=== PATIENT | female | born 1955 | race Caucasian/White ===

== ENCOUNTER 2017-01-19 20:10 | Emergency (ER) | payer OTHER ==
[~2017-01-19] VITALS: Ht 162.6 cm; Wt 139.9 kg
[~2017-01-19 20:10] MED LIST: ASPI-558 PO; CYCL-208 PO; DOCU-129 PO; IRBE1TAB7 PO; MULT1CAP47 PO; OMEG100016 PO; OXYC-48 PO; PIOG15TA PO; ROSU5TAB3 PO
--- OUTSIDE RECORDS SUMMARY | 2017-01-19 20:14 | XMS REPORT | Continuity of Care Document ---
Author Author [facility] Organization [facility] Address Unknown Phone Unavailable Allergies Medications Problems Procedures Results Encounters ACCT No. Visit Date/Time Discharge Status Pt. Type Provider Facility Loc./Unit Complaint [id number] 12/13/2013 10:00:00 12/13/2013 23 :59:59 CLS Outpatient [id number] 10/12/2013 14:23:00 10/12/2013 23 :59:59 CLS Outpatient
--- OUTSIDE RECORDS SUMMARY | 2017-01-19 20:14 | XMS REPORT | Referral Summary ---
Author Author [facility] Organization [facility] Address Unknown Phone Unavailable Care Team Providers Care Electronics Commodity Manager Name Role Phone Heidy Carrero Primary Care Physician [phone] Encounter VC Date(s): 03/28/15 - 03/28/15 [facility], [address] [place] [address] [[email or web address]] Discharge Diagnosis: Depression Discharge Disposition: 01-Home or Self Care Attending Physician: James Carrero MD Admitting Physician: James Carrero MD Vital Signs Most recent to 1 oldest [Reference Range]: Temperature Tympanic 36.9 degC [36.6-38.1 degC] (03/28/15 9:53 AM) Peripheral Pulse 64 bpm Rate [60-100 bpm] (03/28/15 9:53 AM) Respiratory Rate 16 br/min [14-20 br/min] (03/28/15 9:53 AM) Blood Pressure 116/70 mmHg [90-140/60-90 mmHg] (03/28/15 9:53 AM) Problem List Condition Effective Dates Status Health Status Informant Acute URI(Confirmed) Active Anxiety Resolved disorder(Confirmed) Benign essential Active hypertension(Confirm ed) Benign Active hypertension(Confirm ed) Bronchitis(Confirmed Active ) Chicken Resolved pox(Confirmed) Chronic low back Active pain(Confirmed) Chronic upper back Resolved pain(Confirmed) Depression(Confirmed Resolved ) Dry eye of left Active side(Confirmed) Eczema(Confirmed) Resolved Epidermal inclusion Active cyst(Confirmed) GERD Active (gastroesophageal reflux disease)(Confirmed) Tendinopathy of left Active gluteus medius(Confirmed) Gout(Confirmed) Resolved Hamstring tendinitis Active at origin(Confirmed) High Resolved cholesterol(Confirme d) Acute hip Active pain(Confirmed) Hypertension(Confirm Resolved ed) Hypothyroidism(Confi Resolved rmed) Irregular heart Resolved rhythm(Confirmed) Low back Active strain(Confirmed) Low back Active strain(Confirmed) Acute right lumbar Active radiculopathy(Confir med) Combined Active hyperlipidemia(Confi rmed) Morbid Active obesity(Confirmed) Acute neck Active pain(Confirmed) Occasional Resolved palpitations(Confirm ed) Osteoarthritis of Active right hip(Confirmed) Osteoarthritis of Active right knee(Confirmed) Osteoarthritis of Active wrist(Confirmed) Overweight(Confirmed Resolved ) Shingles(Confirmed) Resolved Right knee Active sprain(Confirmed) Steroid 1992 Resolved delirium(Confirmed) Hip Active strain(Confirmed) Strain of hip Active flexor(Confirmed) Acute strain of neck Active muscle(Confirmed) Synovitis of Active hip(Confirmed) Degenerative tear of Active lateral meniscus(Confirmed) Degenerative tear of Active medial meniscus(Confirmed) Hand Active tendinitis(Confirmed ) Tension Resolved headaches(Confirmed) Tobacco Active patient user(Confirmed) Controlled type 2 Active diabetes mellitus without complication(Confirm ed) Ulcers(Confirmed) Resolved Allergies, Adverse Reactions, Alerts Substance Reaction Severity Status amitriptyline memory loss Active ampicillin severe swelling /rash Severe Active cephalexin facial swelling Active clarithromycin decreased blood sugar Active erythromycin nausea/vomiting Active iodine rash, swelling Severe Active omeprazole rash Active predniSONE steroid induced delerium Active simvastatin muscle weakness Active traMADol nausea, dizziness Active Zoloft dizzy and disorientation Active Medications Actos 15 mg oral tablet 1 tabs, Oral, Daily, # 90 tabs, 3 Refill(s), Pharmacy: [facility], 1 tabs Oral Daily Start Date: 05/29/14 Status: Ordered ACTOS 15 MG ORAL TABLET See Instructions, 1 TABS ORAL DAILY, # 90 tabs, 1 Refill(s), eRx: [facility], 1 TABS ORAL DAILY Start Date: 04/08/15 Status: Ordered allopurinol 100 mg oral tablet 200 mg 2 tabs, Oral, Daily, # 270 tabs, 1 Refill(s), eRx: [facility], TAKE 3 TABLETS BY MOUTH EVERY DAY Start Date: 04/15/15 Status: Ordered Avalide 300 mg-12.5 mg oral tablet 0.5 tabs, Oral, Daily, # 45 tabs, 3 Refill(s), Pharmacy: [facility] Start Date: 07/22/15 Stop Date: 07/16/16 Status: Ordered Colace 100 mg oral capsule 2 caps, Oral, Daily, as needed for constipation, 0 Refill(s) Start Date: 03/09/14 Status: Ordered Crestor 5 mg oral tablet See Instructions, TAKE 1 TABLET EVERY OTHER DAY AT BEDTIME, # 45 tabs, eRx: [facility], TAKE 1 TABLET EVERY OTHER DAY AT BEDTIME Start Date: 06/24/15 Status: Ordered Dramamine 75 mg, Oral, Bedtime (once a day), 3 of the 25 mg tabs, 0 Refill(s) Start Date: 03/09/14 Status: Ordered furosemide 20 mg oral tablet See Instructions, TAKE 2 TABLETS EVERY MORNING, # 180 tabs, 1 Refill(s), eRx: [facility], TAKE 2 TABLETS EVERY MORNING Start Date: 07/08/15 Status: Ordered Glucometer strips (DME) DME Item Prescision Xtra Blood Glucose strips--Use to test blood 4 times a day for diabetes 250.00, See Instructions, # 300 Each, 3 Refill(s), Pharmacy: [facility], Prescision Xtra Blood Glucose strips--Use to test blood 4 times a d... Start Date: 05/03/14 Status: Ordered GLUCOMETER STRIPS (DME) See Instructions, PRESCISION XTRA BLOOD GLUCOSE STRIPS--USE TO TEST BLOOD 4 TIMES A DAY FOR DIABETES 250.00, # 300 strip, 2 Refill(s), eRx: [facility], PRESCISION XTRA BLOOD GLUCOSE STRIPS--USE TO TEST BLOOD 4 TIMES A DAY FOR DIABET... Start Date: 06/03/15 Status: Ordered ibuprofen 4 tabs, Oral, TID, as needed for back pain, 0 Refill(s) Start Date: 03/09/14 Status: Ordered Klor-Con 10 10 mEq, Oral, Daily, as needed for leg cramps, 0 Refill(s) Start Date: 03/09/14 Status: Ordered lansoprazole 30 mg oral delayed release capsule 60 mg 2 caps, Oral, Daily, # 180 caps, 2 Refill(s), [facility]acy: [facility], 2 caps Oral Daily Start Date: 07/26/15 Status: Ordered metFORMIN 500 mg oral tablet See Instructions, TAKE 2 TABLETS TWICE A DAY, # 360 tabs, 2 Refill(s), eRx: [facility], TAKE 2 TABLETS TWICE A DAY Start Date: 01/02/15 Status: Ordered Metoprolol Tartrate 25 mg oral tablet See Instructions, TAKE 1 TAB IN THE AM AND 1 TAB IN THE PM, # 180 tabs, 1 Refill (s), eRx: [facility], TAKE 1 TAB IN THE AM AND 1 TAB IN THE PM Start Date: 03/14/15 Status: Ordered multivitamin 1 tabs, Oral, Daily, 0 Refill(s) Start Date: 03/09/14 Status: Ordered [place] 5 mg-325 mg oral tablet 2 tabs, Oral, Bedtime (once a day), as needed for pain, Anuradhat, # 180 tabs, 0 Refill(s) Start Date: 07/22/15 Stop Date: 10/20/15 Status: Ordered Results No data available for this section Immunizations Vaccine Date Refusal Reason tetanus/diphth/pertuss (Tdap) adult/adol 06/01/11 influenza virus vaccine, inactivated1 07/04/14 influenza virus vaccine, live 08/25/13 influenza virus vaccine, live 09/08/12 pneumococcal 23-polyvalent vaccine 07/19/97 tetanus-diphth toxoids (Td) adult/adol 04/13/95 1Result Comment: [07/04/2014] See scanned document Procedures Procedure Date Related Diagnosis Body Site Stapled Hemorrhoidectomy 08/14/10 Colonoscopy 2010 Cystoscopy/Lazer Vaporization 1989 Hysterectomy 1988 Appendectomy 1983 Exploratory laparotomy, RT salpingoectomy, RT 1984 ovarian biopsy Sinus surgery 1982 Tubal ligation Social History Social History Type Response Smoking Status Former smoker; Type: Cigarettes; Tobacco use per day: Pack ; Number of years: 211, 2 1Quit in 1996. 2Quit in 1976 Assessment and Plan Extracted from: Title: Ambulatory Patient Education Author: James Carrero MD Date: 03/28 Family Medicine Depression, Adult Depression refers to feeling sad, low, down in the dumps, blue, gloomy, or empty. In general, there are two kinds of depression: 1. Depression that we all experience from time to time because of upsetting life experiences, including the loss of a job or the ending of a relationship ( normal sadness or normal grief). This kind of depression is considered normal, is short lived, and resolves within a few days to 2 weeks. (Depression experienced after the loss of a loved one is called bereavement. Bereavement often lasts longer than 2 weeks but normally gets better with time.) 2. Clinical depression, which lasts longer than normal sadness or normal grief or interferes with your ability to function at home, at work, and in school. It also interferes with your personal relationships. It affects almost every aspect of your life. Clinical depression is an illness. Symptoms of depression also can be caused by conditions other than normal sadness and grief or clinical depression. Examples of these conditions are listed as follows: Physical illnessSome physical illnesses, including underactive thyroid gland (hypothyroidism ), severe anemia, specific types of cancer, diabetes, uncontrolled seizures, heart and lung problems, strokes, and chronic pain are commonly associated with symptoms of depression. Side effects of some prescription medicineIn some people, certain types of prescription medicine can cause symptoms of depression. Substance abuseAbuse of alcohol and illicit drugs can cause symptoms of depression. SYMPTOMS Symptoms of normal sadness and normal grief include the following: Feeling sad or crying for short periods of time. Not caring about anything (apathy ). Difficulty sleeping or sleeping too much. No longer able to enjoy the things you used to enjoy. Desire to be by oneself all the time (social isolation ). Lack of energy or motivation. Difficulty concentrating or remembering. Change in appetite or weight. Restlessness or agitation. Symptoms of clinical depression include the same symptoms of normal sadness or normal grief and also the following symptoms: Feeling sad or crying all the time. Feelings of guilt or worthlessness. Feelings of hopelessness or helplessness. Thoughts of suicide or the desire to harm yourself (suicidal ideation ). Loss of touch with reality (psychotic symptoms ). Seeing or hearing things that are not real (hallucinations ) or having false beliefs about your life or the people around you (delusions and paranoia ). DIAGNOSIS The diagnosis of clinical depression usually is based on the severity and duration of the symptoms. Your caregiver also will ask you questions about your medical history and substance use to find out if physical illness, use of prescription medicine, or substance abuse is causing your depression. Your caregiver also may order blood tests. TREATMENT Typically, normal sadness and normal grief do not require treatment. However, sometimes antidepressant medicine is prescribed for bereavement to ease the depressive symptoms until they resolve. The treatment for clinical depression depends on the severity of your symptoms but typically includes antidepressant medicine, counseling with a mental health professional, or a combination of both. Your caregiver will help to determine what treatment is best for you. Depression caused by physical illness usually goes away with appropriate medical treatment of the illness. If prescription medicine is causing depression , talk with your caregiver about stopping the medicine, decreasing the dose, or substituting another medicine. Depression caused by abuse of alcohol or illicit drugs abuse goes away with abstinence from these substances. Some adults need professional help in order to stop drinking or using drugs. SEEK IMMEDIATE CARE IF: You have thoughts about hurting yourself or others. You lose touch with reality (have psychotic symptoms). You are taking medicine for depression and have a serious side effect. FOR MORE INFORMATION National [place] on Mental Illness: www.linette.org [place] of Mental Health: www.nimh.nih.gov Document Released: 09/17/2001 Document Revised: 03/21/2013 Document Reviewed: ExitCare Patient Information 2014 [employer]. No follow up information was provided. Extracted from: Title: multiple issues Author: James Carrero MD Date: 03/28/15 Impression and Plan Diagnosis Benign essential hypertension (ICD9 401.1, Working, Medical). Combined hyperlipidemia (ICD9 272.2, Working, Medical). Controlled type 2 diabetes mellitus without complication (ICD9 250.00, Working, Medical). Morbid obesity (ICD9 278.01, Working, Medical). 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 Plan: Healthy diet and daily exercise with weight loss recommended. You didn' t want additional meds for depression or diabetes. See me in 3 months and as needed. Saline sinus irrigation is helpful for chronic sinusitis. Get fasting lab in 3 months, then see me for a recheck appointment. , Wear the left wrist brace for up to one month, for the left wrist pain. Get ROM to the wrist every day.. Orders Orders (Selected) Outpatient Orders Ordered Office Visit Level 5 Est 49155: Wrist hand orthosis, wrist extension control cock-up, non molded, L3908: Future (On Hold) Albumin/Creatinine Ratio, Urine: CMP: Hgb A1c: Triglycerides: . Dx/Order Association Plan: Diagnosis: Benign essential hypertension Comment: Ordered: Office Visit Level 5 Est [id number]; 03/28/15 10:33:00 CDT, Benign essential hypertension | Osteoarthritis of wrist | Controlled type 2 diabetes mellitus without complication | Combined hyperlipidemia | Morbid obesity Diagnosis: Combined hyperlipidemia Comment: Ordered: Office Visit Level 5 Est [id number]; 03/28/15 10:33:00 CDT, Benign essential hypertension | Osteoarthritis of wrist | Controlled type 2 diabetes mellitus without complication | Combined hyperlipidemia | Morbid obesity Diagnosis: Controlled type 2 diabetes mellitus without complication Comment: Ordered: Office Visit Level 5 Est [id number]; 03/28/15 10:33:00 CDT, Benign essential hypertension | Osteoarthritis of wrist | Controlled type 2 diabetes mellitus without complication | Combined hyperlipidemia | Morbid obesity Diagnosis: Depression Comment: Ordered: Office Visit Level 5 Est [id number]; 03/28/15 10:33:00 CDT, Benign essential hypertension | Osteoarthritis of wrist | Controlled type 2 diabetes mellitus without complication | Combined hyperlipidemia | Morbid obesity Diagnosis: Morbid obesity Comment: Ordered: Office Visit Level 5 Est [id number]; 03/28/15 10:33:00 CDT, Benign essential hypertension | Osteoarthritis of wrist | Controlled type 2 diabetes mellitus without complication | Combined hyperlipidemia | Morbid obesity Diagnosis: Osteoarthritis of wrist Comment: Ordered: Wrist hand orthosis, wrist extension control cock-up, non molded, [id number]; 03/28/15 13:43:00 CDT, Osteoarthritis of wrist, 1 Office Visit Level 5 Est [id number]; 03/28/15 10:33:00 CDT, Benign essential hypertension | Osteoarthritis of wrist | Controlled type 2 diabetes mellitus without complication | Combined hyperlipidemia | Morbid obesity Additional Orders: Comment: Future Orders: Albumin/Creatinine Ratio, Urine,Urine, Routine collect, *Est. 06/27/15 +/- 21 days, Once, Nurse Collect Non-Blood, Controlled type 2 diabetes mellitus without complication, Order for future visit Future Orders: CMP,Blood, Routine Collect, *Est. 06/27/15 +/- 21 days, Once, Lab Collect, Controlled type 2 diabetes mellitus without complication, Order for future visit End of Orders ."
--- OUTSIDE RECORDS SUMMARY | 2017-01-19 20:15 | XMS REPORT | Referral Summary ---
Author Author [facility] Organization [facility] Address Unknown Phone Unavailable Care Team Providers Care Mushroom Packer Name Role Phone Heidy Carrero Primary Care Physician [phone] Encounter VC Date(s): 08/15/15 - 08/15/15 [facility] [address] [place] [address] [place] [phone]- Discharge Diagnosis: Well woman exam with routine gynecological exam Discharge Disposition: 01-Home or Self Care Attending Physician: Virginie Gilbert APRN Admitting Physician: Virginie Gilbert APRN Vital Signs Most recent to 1 oldest [Reference Range]: Peripheral Pulse 84 bpm Rate [60-100 bpm] (08/15/15 8:50 AM) Blood Pressure 134/76 mmHg [90-140/60-90 mmHg] (08/15/15 8:50 AM) Problem List Condition Effective Dates Status [...] Daily, # 90 tabs, 3 Refill(s), Pharmacy: [facility], 1 tabs Oral Daily Start Date: 05/29/14 Status: Ordered ACTOS 15 MG ORAL TABLET See Instructions, 1 TABS ORAL DAILY, # 90 tabs, 1 Refill(s), eRx: [facility], 1 TABS ORAL DAILY Start Date: 04/08/15 Status: Ordered allopurinol 100 mg oral tablet 200 mg 2 tabs, Oral, Daily, # 270 tabs, 1 Refill(s), [facility]: [facility], TAKE 3 TABLETS BY MOUTH EVERY DAY Start Date: 04/15/15 Status: Ordered Avalide 300 mg-12.5 mg oral tablet 0.5 tabs, Oral, Daily, # 45 tabs, 3 Refill(s), Pharmacy: [facility] Start Date: 07/22/15 Stop Date: 07/16/16 Status: Ordered Colace 100 mg oral capsule 2 caps, Oral, Daily, as needed for constipation, 0 Refill(s) Start Date: 03/09/14 Status: Ordered Crestor 5 mg oral tablet See Instructions, TAKE 1 TABLET EVERY OTHER DAY AT BEDTIME, # 45 tabs, eRx: [facility], TAKE 1 TABLET EVERY OTHER [...] # 300 Each, 3 Refill(s), Pharmacy: [facility], Prescision Xtra Blood Glucose strips--Use [...] # 180 caps, 2 Refill(s), [facility]acy: [facility], 2 caps Oral Daily Start [...] 0 Refill(s) Start Date: 03/09/14 Status: Ordered [place] 5 mg-325 mg oral tablet 2 tabs, Oral, Bedtime (once a day), as needed for pain, [facility], # 180 tabs, 0 Refill(s) Start Date: [...] Procedures Procedure Date Related Diagnosis Body Site Pap smear, as part of routine gynecological 08/08/14 examination Stapled Hemorrhoidectomy 08/14/10 Colonoscopy 2009 Cystoscopy/Lazer Vaporization 1989 Hysterectomy 1988 Appendectomy 1983 Exploratory laparotomy, RT salpingoectomy, RT 1983 ovarian biopsy Sinus surgery 1982 Tubal ligation Social History Social History Type Response Smoking Status Former smoker; Type: Cigarettes; Tobacco use per day: Pack ; Number of years: 211, 2 1Quit in 1996. 2Quit in 1976 Assessment and Plan No data available for this section
--- OUTSIDE RECORDS SUMMARY | 2017-01-19 20:15 | XMS REPORT | Referral Summary ---
Author Author [facility] Organization [facility] Address Unknown Phone Unavailable Care Team Providers Care Cracker Dough Mixer Name Role Phone Heidy Carrero Primary Care Physician [phone] Encounter VC Date(s): 05/07/15 - 05/07/15 [facility] [address] [place] [phone]- Discharge Disposition: 01-Home or Self Care Attending Physician: James Carrero MD Vital Signs No data available for this section Problem List Condition Effective Dates Status Health [...] Active Zoloft dizzy and disorientation Active Medications ACTOS 15 MG ORAL TABLET See Instructions, 1 TABS ORAL DAILY, # 90 tabs, 1 Refill(s), [facility]: [facility], 1 TABS ORAL DAILY Start Date: 04/08/15 Status: Ordered allopurinol 100 mg oral tablet 200 mg 2 tabs, Oral, Daily, # 270 tabs, 1 Refill(s), eRx: [facility], TAKE 3 TABLETS BY MOUTH EVERY DAY Start Date: 04/15/15 Status: Ordered Avalide 300 mg-12.5 mg oral tablet 0.5 tabs, Oral, Daily, # 45 tabs, 3 Refill(s), Pharmacy: [facility] Start Date: 07/22/15 Stop Date: 07/16/16 Status: Ordered Colace 100 mg oral capsule 2 caps, Oral, Daily, as needed for constipation, 0 Refill(s) Start Date: 03/09/14 Status: Ordered Crestor 5 mg oral tablet See Instructions, TAKE 1 TABLET EVERY OTHER DAY AT BEDTIME, # 45 tabs, eRx: [facility], TAKE 1 TABLET EVERY OTHER DAY AT BEDTIME Start Date: 11/15/15 Status: Ordered Dramamine 75 mg, Oral, Bedtime (once a day), 3 of the 25 mg tabs, 0 Refill(s) Start Date: 03/09/14 Status: Ordered furosemide 20 mg oral tablet See Instructions, TAKE 2 TABLETS EVERY MORNING, # 180 tabs, 1 Refill(s), eRx: [facility], TAKE 2 TABLETS EVERY MORNING Start Date: 07/08/15 Status: Ordered Glucometer (DME) DME Item Freestyle Light Monitor to test blood sugar daily for diabetes type 2 E11.8, See Instructions, # 1 Each, 0 Refill(s), Precision Xtra Blood Glucose Monitor to test blood sugar daily for diabetes type 2 E11.9, Supply Start Date: 10/03/15 Status: Ordered Glucometer Lancets (DME) DME Item Freestlye Light Lancets Test blood sugars 4x daily DX: E11.8, See Instructions, # 1 boxes, 2 Refill(s), Supply Start Date: 10/03/15 Status: Ordered Glucometer strips (DME) DME Item Prescision Xtra Blood Glucose strips--Use to test blood 4 times a day for diabetes 250.00, See Instructions, # 300 Each, 3 Refill(s), Pharmacy: [facility], Prescision Xtra Blood Glucose strips--Use to test blood 4 times a d... Start Date: 05/03/14 Status: Ordered Glucometer strips (DME) DME Item Free style GLUCOSE STRIPS--USE TO TEST BLOOD 4 TIMES A DAY FOR DIABETES E11.8, See Instructions, # 6 boxes, 3 Refill(s), PRESCISION XTRA BLOOD GLUCOSE STRIPS--USE TO TEST BLOOD 4 TIMES A DAY FOR DIABETES 250.00, 100 strips per month/ 3 month... Start Date: 10/14/15 Status: Ordered ibuprofen 4 tabs, Oral, TID, as needed for back pain, 0 Refill(s) Start Date: 03/09/14 Status: Ordered Januvia 100 mg oral tablet 100 mg 1 tabs, Oral, Daily, # 90 tabs, 4 Refill(s) Start Date: 10/16/15 Stop Date: 01/14/16 Status: Ordered Klor-Con 10 10 mEq, Oral, Daily, as needed for leg cramps, 0 Refill(s) Start Date: 03/09/14 Status: Ordered lansoprazole 30 mg oral delayed release capsule 60 mg 2 caps, Oral, Daily, # 180 caps, 2 Refill(s), Pharmacy: [facility], 2 caps Oral Daily Start Date: 07/26/15 Status: Ordered metFORMIN 500 mg oral tablet See Instructions, TAKE 2 TABLETS TWICE A DAY, # 360 tabs, 2 Refill(s), Pharmacy : [facility], TAKE 2 TABLETS TWICE A DAY Start Date: 10/28/15 Status: Ordered Metoprolol Tartrate 25 mg oral tablet See Instructions, TAKE 1 TAB IN THE AM AND 1 TAB IN THE PM, # 180 tabs, 1 Refill (s), Pharmacy: [facility], TAKE 1 TAB IN THE AM AND 1 TAB IN THE PM Start Date: 10/28/15 Status: Ordered multivitamin 1 tabs, Oral, Daily, 0 Refill(s) Start Date: 03/09/14 Status: Ordered [place] 5 mg-325 mg oral tablet 2 tabs, Oral, Bedtime (once a day), as needed for pain, [facility], # 180 tabs, 0 Refill(s) Start Date: 10/28/15 Stop Date: 01/26/16 Status: Ordered pioglitazone 15 mg oral tablet See Instructions, TAKE 1 TABLET DAILY, # 90 tabs, eRx: [facility], TAKE 1 TABLET DAILY Start Date: 09/09/15 Status: Ordered Results No data available for [...]
--- OUTSIDE RECORDS SUMMARY | 2017-01-19 20:15 | XMS REPORT | Referral Summary ---
Author Author [facility] [place], [facility] Care Organization [facility] [place] [facility] Address Unknown Phone Unavailable Care Team Providers Care Water Treatment Technician Name Role Phone Heidy Carrero Primary Care Physician [phone] Encounter VC Date(s): 12/07/15 - 12/07/15 [facility] [place], [address] [place] [id number] Discharge Disposition: 01-Home or Self Care Attending Physician: James Carrero MD Admitting Physician: James Carrero MD Vital Signs Most recent to 1 oldest [Reference Range]: Peripheral Pulse 66 bpm Rate [60-100 bpm] (12/07/15 10:05 AM) Respiratory Rate 17 br/min [14-20 br/min] (12/07/15 10:05 AM) Blood Pressure 128/70 mmHg [90-140/60-90 mmHg] (12/07/15 10:05 AM) SpO2 96 % (12/07/15 10:05 AM) Problem List Condition Effective Dates Status [...] DAILY, # 90 tabs, 1 Refill(s), eRx: [facility], 1 TABS ORAL DAILY Start Date: 04/08/15 Status: Ordered allopurinol 100 mg oral tablet 200 mg 2 tabs, Oral, Daily, # 270 tabs, 1 Refill(s), eRx: [facility], TAKE 3 TABLETS BY MOUTH EVERY DAY Start Date: 04/15/15 Status: Ordered Avalide 300 mg-12.5 mg oral tablet 0.5 tabs, Oral, Daily, # 45 tabs, 3 Refill(s), Pharmacy: [facility] Start Date: 07/22/15 Stop Date: 07/16/16 Status: Ordered Colace 100 mg oral capsule 2 caps, Oral, Daily, as needed for constipation, 0 Refill(s) Start Date: 03/09/14 Status: Ordered Crestor 5 mg oral tablet See Instructions, TAKE 1 TABLET EVERY OTHER DAY AT BEDTIME, # 45 tabs, eRx: [facility], TAKE 1 TABLET EVERY OTHER DAY AT BEDTIME Start Date: 11/15/15 Status: Ordered Dramamine 75 mg, Oral, Bedtime (once a day), 3 of the 25 mg tabs, 0 Refill(s) Start Date: 03/09/14 Status: Ordered furosemide 20 mg oral tablet See Instructions, TAKE 2 TABLETS EVERY MORNING, # 180 tabs, 1 Refill(s), [facility]: [email or web address], TAKE 2 TABLETS EVERY MORNING [...] Instructions, # 300 Each, 3 Refill(s), Pharmacy: [facility], Prescision Xtra Blood Glucose strips--Use [...] Daily, # 180 caps, 2 Refill(s), Pharmacy: [facility], 2 caps Oral Daily Start Date: 07/26/15 Status: Ordered metFORMIN 500 mg oral tablet See Instructions, TAKE 2 TABLETS TWICE A DAY, # 360 tabs, 2 Refill(s), Pharmacy : [facility], TAKE 2 TABLETS TWICE A DAY Start Date: 10/28/15 Status: Ordered Metoprolol Tartrate 25 mg oral tablet See Instructions, TAKE 1 TAB IN THE AM AND 1 TAB IN THE PM, # 180 tabs, 1 Refill (s), Pharmacy: [facility], TAKE 1 TAB IN THE AM AND 1 TAB IN THE PM Start Date: 10/28/15 Status: Ordered multivitamin 1 tabs, Oral, Daily, 0 Refill(s) Start Date: 03/09/14 Status: Ordered Oakley 5 mg-325 mg oral tablet 2 tabs, Oral, Bedtime (once a day), as needed for pain, Joshua, # 180 tabs, 0 Refill(s) Start Date: 10/28/15 Stop Date: 01/26/16 Status: Ordered pioglitazone 15 mg oral tablet See Instructions, TAKE 1 TABLET DAILY, # 90 tabs, 1 Refill(s), [facility]: [email or web address], TAKE 1 TABLET DAILY Start Date: 11/18/15 Status: Ordered sulfamethoxazole-trimethoprim 800 mg-160 mg oral tablet 1 tabs, Oral, BID, X 10 days, # 20 tabs, 0 Refill(s), Pharmacy: [id number] Start Date: 12/07/15 Stop Date: 12/17/15 Status: Ordered Results No data available for [...] 2009 Cystoscopy/Lazer Vaporization 1989 Hysterectomy 1988 Appendectomy 1984 Exploratory laparotomy, RT salpingoectomy, RT 1983 ovarian biopsy Sinus surgery 1982 Tubal ligation Social History Social History Type Response Smoking Status Former smoker; Type: Cigarettes; Tobacco use per day: Pack ; Number of years: 211, 2 1Quit in 1996. 2Quit in 1976 Assessment and Plan Extracted from: Title: Ambulatory Patient Education Author: James Carrero MD Date: Allergy Sinusitis Sinusitis is redness, soreness, and puffiness (inflammation) of the air pockets in the bones of your face (sinuses). The redness, soreness, and puffiness can cause air and mucus to get trapped in your sinuses. This can allow germs to grow and cause an infection. HOME CARE Drink enough fluids to keep your pee (urine) clear or pale yellow. Use a humidifier in your home. Run a hot shower to create steam in the bathroom. Sit in the bathroom with the door closed. Breathe in the steam 34 times a day. Put a warm, moist washcloth on your face 34 times a day, or as told by your doctor. Use salt water sprays (saline sprays) to wet the thick fluid in your nose. This can help the sinuses drain. Only take medicine as told by your doctor. GET HELP RIGHT AWAY IF: Your pain gets worse. You have very bad headaches. You are sick to your stomach (nauseous). You throw up (vomit). You are very sleepy (drowsy) all the time. Your face is puffy (swollen). Your vision changes. You have a stiff neck. You have trouble breathing. MAKE SURE YOU: Understand these instructions. Will watch your condition. Will get help right away if you are not doing well or get worse. This information is not intended to replace advice given to you by your health care provider. Make sure you discuss any questions you have with your health care provider. Document Released: 03/08/2009 Document Revised: 06/14/2013 Document Reviewed: [facility] [place] Patient Information 2015 [facility]. Emergency Medicine Acute Bronchitis Bronchitis is inflammation of the airways that extend from the windpipe into the lungs (bronchi). The inflammation often causes mucus to develop. This leads to a cough, which is the most common symptom of bronchitis. In acute bronchitis, the condition usually develops suddenly and goes away over time, usually in a couple weeks. Smoking, allergies, and asthma can make bronchitis worse. Repeated episodes of bronchitis may cause further lung problems. CAUSES Acute bronchitis is most often caused by the same virus that causes a cold. The virus can spread from person to person (contagious) through coughing, sneezing, and touching contaminated objects. SIGNS AND SYMPTOMS Cough. Fever. Coughing up mucus. Body aches. Chest congestion. Chills. Shortness of breath. Sore throat. DIAGNOSIS Acute bronchitis is usually diagnosed through a physical exam. Your health care provider will also ask you questions about your medical history. Tests, such as chest X-rays, are sometimes done to rule out other conditions. TREATMENT Acute bronchitis usually goes away in a couple weeks. Oftentimes, no medical treatment is necessary. Medicines are sometimes given for relief of fever or cough. Antibiotic medicines are usually not needed but may be prescribed in certain situations. In some cases, an inhaler may be recommended to help reduce shortness of breath and control the cough. A cool mist vaporizer may also be used to help thin bronchial secretions and make it easier to clear the chest. HOME CARE INSTRUCTIONS Get plenty of rest. Drink enough fluids to keep your urine clear or pale yellow (unless you have a medical condition that requires fluid restriction). Increasing fluids may help thin your respiratory secretions (sputum) and reduce chest congestion, and it will prevent dehydration. Take medicines only as directed by your health care provider. If you were prescribed an antibiotic medicine, finish it all even if you start to feel better. Avoid smoking and secondhand smoke. Exposure to cigarette smoke or irritating chemicals will make bronchitis worse. If you are a smoker, consider using nicotine gum or skin patches to help control withdrawal symptoms. Quitting smoking will help your lungs heal faster. Reduce the chances of another bout of acute bronchitis by washing your hands frequently, avoiding people with cold symptoms, and trying not to touch your hands to your mouth, nose, or eyes. Keep all follow-up visits as directed by your health care provider. SEEK MEDICAL CARE IF: Your symptoms do not improve after 1 week of treatment. SEEK IMMEDIATE MEDICAL CARE IF: You develop an increased fever or chills. You have chest pain. You have severe shortness of breath. You have bloody sputum. You develop dehydration. You faint or repeatedly feel like you are going to pass out. You develop repeated vomiting. You develop a severe headache. MAKE SURE YOU: Understand these instructions. Will watch your condition. Will get help right away if you are not doing well or get worse. This information is not intended to replace advice given to you by your health care provider. Make sure you discuss any questions you have with your health care provider. Document Released: 10/28/2005 Document Revised: 02/04/2015 Document Reviewed: [facility] Patient Information 2015 [employer]. Home Health Care Cellulitis Cellulitis is an infection of the skin and the tissue beneath it. The infected area is usually red and tender. Cellulitis occurs most often in the arms and lower legs. CAUSES Cellulitis is caused by bacteria that enter the skin through cracks or cuts in the skin. The most common types of bacteria that cause cellulitis are staphylococci and streptococci. SIGNS AND SYMPTOMS Redness and warmth. Swelling. Tenderness or pain. Fever. DIAGNOSIS Your health care provider can usually determine what is wrong based on a physical exam. Blood tests may also be done. TREATMENT Treatment usually involves taking an antibiotic medicine. HOME CARE INSTRUCTIONS Take your antibiotic medicine as directed by your health care provider. Finish the antibiotic even if you start to feel better. Keep the infected arm or leg elevated to reduce swelling. Apply a warm cloth to the affected area up to 4 times per day to relieve pain. Take medicines only as directed by your health care provider. Keep all follow-up visits as directed by your health care provider. SEEK MEDICAL CARE IF: You notice red streaks coming from the infected area. Your red area gets larger or turns dark in color. Your bone or joint underneath the infected area becomes painful after the skin has healed. Your infection returns in the same area or another area. You notice a swollen bump in the infected area. You develop new symptoms. You have a fever. SEEK IMMEDIATE MEDICAL CARE IF: You feel very sleepy. You develop vomiting or diarrhea. You have a general ill feeling (malaise) with muscle aches and pains. MAKE SURE YOU: Understand these instructions. Will watch your condition. Will get help right away if you are not doing well or get worse. This information is not intended to replace advice given to you by your health care provider. Make sure you discuss any questions you have with your health care provider. Document Released: 06/30/2006 Document Revised: 02/04/2015 Document Reviewed: [employer] Patient Information 2015 [facility]. No follow up information was provided. Extracted from: Title: cellulitis, right 2nd toe; Author: James Carrero MD Date: 12/07/15 frontal sinusitis; diabetes, bronchitis Impression and Plan Diagnosis Cellulitis of second toe (FSM55-QD L03.031, Working, Medical). Acute pansinusitis (SLM57-ZG J01.40, Working, Medical). Controlled type 2 diabetes mellitus without complication (YHT65-VP E11.9, Working, Medical). Acute bronchitis (NOZ14-RK J20.9, Working, Medical). Plan: 1) take the Bactrim DS as prescribed. 2) Soak the right toe several times a day and dry it off gently. 3) No change to your other meds. 4) Followup as needed.. Orders Orders (Selected) Outpatient Orders Ordered Office Visit Level 4 Est 42330: Future (On Hold) Albumin/Creatinine Ratio, Urine: CMP: Fasting Lipid Profile: Hgb A1c: Prescriptions Prescribed sulfamethoxazole-trimethoprim 800 mg-160 mg oral tablet: 1 tabs, Oral, BID, for 10 days, 20 tabs, 0 Refill(s). 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, Cellulitis of second toe | Acute pansinusitis | Controlled type 2 diabetes mellitus without complication | Acute bronchitis Diagnosis: Cellulitis of second toe Comment: Modified: Office Visit Level 4 Est [id number]; 12/07/15 16:06:00 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, Cellulitis of second toe | Acute pansinusitis | Controlled type 2 diabetes mellitus without complication | Acute bronchitis Diagnosis: Controlled type 2 diabetes mellitus without complication Comment: Modified: Office Visit Level 4 Est 16050; 12/07/15 16:06:00 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
--- OUTSIDE RECORDS SUMMARY | 2017-01-19 20:15 | XMS REPORT | Referral Summary ---
Author Organization Unknown Address Unknown Phone Unavailable Care Team Providers Care Transportation Dispatch Manager Name Role Phone Heidy Carrero Primary Care Physician [phone] Encounter VC Date(s): 12/13/14 - 12/13/14 [facility], [place], Family Medicine [address] [place] [address] [place] [id number] Discharge Diagnosis: Controlled type 2 diabetes mellitus without complication Discharge Diagnosis: GERD (gastroesophageal reflux disease) Discharge Diagnosis: Dry eye of left side Discharge Diagnosis: Benign essential hypertension Discharge Diagnosis: Combined hyperlipidemia Discharge Disposition: Home or Self Care Attending Physician: James Carrero MD Admitting Physician: James Carrero MD Vital Signs Most recent to 1 oldest [Reference Range]: Temperature Tympanic 36.8 degC [36.6-38.1 degC] (12/13/14 9:51 AM) Peripheral Pulse 64 bpm Rate [60-100 bpm] (12/13/14 9:51 AM) Respiratory Rate 12 br/min [14-20 br/min] *LOW* (12/13/14 9:51 AM) Blood Pressure 128/84 mmHg [90-140/60-90 mmHg] (12/13/14 9:51 AM) Problem List Condition Effective Dates Status Health Status Informant Anxiety Resolved disorder(Confirmed) Benign essential Active hypertension(Confirm [...] Active radiculopathy(Confir med) Combined Active hyperlipidemia(Confi rmed) Acute neck Active pain(Confirmed) Occasional Resolved palpitations(Confirm ed) Overweight(Confirmed Resolved ) Shingles(Confirmed) Resolved Right knee Active sprain(Confirmed) Steroid 1992 Resolved delirium(Confirmed) Hip Active strain(Confirmed) Strain of hip Active flexor(Confirmed) Acute strain of neck Active muscle(Confirmed) Synovitis of Active hip(Confirmed) Degenerative tear of Active lateral meniscus(Confirmed) Degenerative tear of Active medial meniscus(Confirmed) Tension Resolved headaches(Confirmed) Tobacco Active patient user(Confirmed) [...] Daily, # 90 tabs, 3 Refill(s), Pharmacy: [facility], 1 tabs Oral Daily Start Date: 05/29/14 Status: Ordered allopurinol 100 mg oral tablet See Instructions, TAKE 3 TABLETS BY MOUTH EVERY DAY, # 270 tabs, 1 Refill(s), eRx: [facility], TAKE 3 TABLETS BY MOUTH EVERY DAY Special Instructions: TAKE 3 TABLETS BY MOUTH EVERY DAY Start Date: 10/01/14 Status: Ordered Avalide 300 mg-12.5 mg oral tablet 0.5 tabs, Oral, Daily, # 45 tabs, 1 Refill(s), Pharmacy: [facility] Start Date: 11/22/14 Status: Ordered Colace 100 mg oral capsule 2 caps, Oral, Daily, as needed for constipation, 0 Refill(s) Start Date: 03/09/14 Status: Ordered Crestor 5 mg oral tablet See Instructions, TAKE 1 TABLET BY MOUTH EVERY OTHER BEDTIME, # 45 tabs, [facility]Rx: [facility], TAKE 1 TABLET BY MOUTH EVERY OTHER BEDTIME Special Instructions: TAKE 1 TABLET BY MOUTH EVERY OTHER BEDTIME Start Date: 11/19/14 Status: Ordered Dramamine 25 mg, Oral, Bedtime (once a day), 2 tablets, 0 Refill(s) Special Instructions: 2 tablets Start Date: 03/09/14 Status: Ordered furosemide 20 mg oral tablet See Instructions, TAKE 2 TABLETS EVERY MORNING, # 180 tabs, 2 Refill(s), eRx: [facility], TAKE 2 TABLETS EVERY MORNING Special Instructions: TAKE 2 TABLETS EVERY MORNING Start Date: 11/16/14 Status: Ordered Glucometer strips (DME) DME Item Prescision Xtra Blood Glucose strips--Use to test blood 4 times a day for diabetes 250.00, See Instructions, # 300 Each, 3 Refill(s), Pharmacy: [facility], Prescision Xtra Blood Glucose strips--Use to test blood 4 times a d... Special Instructions: [facility] Xtra Blood Glucose strips--Use to test blood 4 times a day for diabetes 250.00 Start Date: 05/03/14 Status: Ordered ibuprofen 4 tabs, Oral, TID, as needed for back pain, 0 Refill(s) Start Date: 03/09/14 Status: Ordered Klor-Con 10 10 mEq, Oral, Daily, as needed for leg cramps, 0 Refill(s) Start Date: 03/09/14 Status: Ordered lansoprazole 30 mg oral delayed release capsule See Instructions, TAKE 1 CAPSULE BY MOUTH TWICE DAILY, # 180 caps, 2 Refill(s), eRx: [facility], TAKE 1 CAPSULE BY MOUTH TWICE DAILY Special Instructions: TAKE 1 CAPSULE BY MOUTH TWICE DAILY Start Date: 10/02/14 Status: Ordered metFORMIN 500 mg oral tablet 2 tabs, Oral, BID, 0 Refill(s) Start Date: 03/09/14 Status: Ordered metoprolol tartrate 25 mg oral tablet See Instructions, take 1 tab in the AM and 1 tab in the PM, # 180 tabs, 1 Refill (s), Pharmacy: [facility] Special Instructions: take 1 tab in the AM and 1 tab in the PM Start Date: 10/22/14 Status: Ordered multivitamin 1 tabs, Oral, Daily, 0 Refill(s) Start Date: 03/09/14 Status: Ordered Westwood 5 mg-325 mg oral tablet 2 tabs, Oral, Bedtime (once a day), as needed for pain, Joshua, # 180 tabs, 0 Refill(s) Special Instructions: [facility] Start Date: 11/05/14 Status: Ordered Results No data available for [...] Patient Education Author: James Carrero MD Date: 12/13 Family Medicine Diabetes and Exercise Regular exercise is important and can help: Control blood glucose (sugar ). Decrease blood pressure. Control blood lipids (cholesterol, triglycerides ). Improve overall health. BENEFITS FROM EXERCISE Improved fitness. Improved flexibility. Improved endurance. Increased bone density. Weight control. Increased muscle strength. Decreased body fat. Improvement of the body's use of insulin, a hormone. Increased insulin sensitivity. Reduction of insulin needs. Reduced stress and tension. Helps you feel better. People with diabetes who add exercise to their lifestyle gain additional benefits, including: Weight loss. Reduced appetite. Improvement of the body's use of blood glucose. Decreased risk factors for heart disease: Lowering of cholesterol and triglycerides. Raising the level of good cholesterol (high-density lipoproteins, HDL ). Lowering blood sugar. Decreased blood pressure. TYPE 1 DIABETES AND EXERCISE Exercise will usually lower your blood glucose. If blood glucose is greater than 240 mg/dl, check urine ketones. If ketones are present, do not exercise. Location of the insulin injection sites may need to be adjusted with exercise. Avoid injecting insulin into areas of the body that will be exercised. For example, avoid injecting insulin into: The arms when playing tennis. The legs when jogging. For more information, discuss this with your caregiver. Keep a record of: Food intake. Type and amount of exercise. Expected peak times of insulin action. Blood glucose levels. Do this before, during, and after exercise. Review your records with your caregiver. This will help you to develop guidelines for adjusting food intake and insulin amounts. TYPE 2 DIABETES AND EXERCISE Regular physical activity can help control blood glucose. Exercise is important because it may: Increase the body's sensitivity to insulin. Improve blood glucose control. Exercise reduces the risk of heart disease. It decreases serum cholesterol and triglycerides. It also lowers blood pressure. Those who take insulin or oral hypoglycemic agents should watch for signs of hypoglycemia. These signs include dizziness, shaking, sweating, chills, and confusion. Body water is lost during exercise. It must be replaced. This will help to avoid loss of body fluids (dehydration ) or heat stroke. Be sure to talk to your caregiver before starting an exercise program to make sure it is safe for you. Remember, any activity is better than none. Document Released: 12/10/2004 Document Revised: 12/12/2012 Document Reviewed: [facility] Patient Information 2014 [employer] No follow up information was provided. Extracted from: Title: DM, HTN Author: James Carrero MD Date: 12/13/14 Impression and Plan Diagnosis GERD (gastroesophageal reflux disease) (ICD9 530.81, Discharge, Medical). Dry eye of left side (ICD9 375.15, Discharge, Medical). Controlled type 2 diabetes mellitus without complication (ICD9 250.00, Discharge , Medical). Combined hyperlipidemia (ICD9 272.2, Discharge, Medical). Benign essential hypertension (ICD9 401.1, Discharge, Medical). Plan: See your preschool adviser about your watery left eye, which is likely due to dry eyes. Continue your current meds. Healthy diet, and daily exercise and weight loss will help everything. See me in 3 months and as needed. . Orders Orders (Selected) Outpatient Orders Ordered Office Visit Level 4 Est 57493: Future (On Hold) Albumin/Creatinine Ratio, Urine: Hgb A1c: Triglycerides: . Dx/Order Association Plan: Diagnosis: Benign essential hypertension Comment: Ordered: Office Visit Level 4 Est [id number]; 12/13/14 10:16:00 CDT, Controlled type 2 diabetes mellitus without complication | Combined hyperlipidemia | Benign essential hypertension | GERD (gastroesophageal reflux disease) | Dry eye of left side Diagnosis: Combined hyperlipidemia Comment: Ordered: Office Visit Level 4 Est 44160; 12/13/14 10:16:00 CDT, Controlled type 2 diabetes mellitus without complication | Combined hyperlipidemia | Benign essential hypertension | GERD (gastroesophageal reflux disease) | Dry eye of left side Diagnosis: Controlled type 2 diabetes mellitus without complication Comment: Ordered: Office Visit Level 4 Est 22433; 12/13/14 10:16:00 CDT, Controlled type 2 diabetes mellitus without complication | Combined hyperlipidemia | Benign essential hypertension | GERD (gastroesophageal reflux disease) | Dry eye of left side Diagnosis: Dry eye of left side Comment: Ordered: Office Visit Level 4 Est 10477; 12/13/14 10:16:00 CDT, Controlled type 2 diabetes mellitus without complication | Combined hyperlipidemia | Benign essential hypertension | GERD (gastroesophageal reflux disease) | Dry eye of left side Diagnosis: GERD (gastroesophageal reflux disease) Comment: Ordered: Office Visit Level 4 Est [id number]; 12/13/14 10:16:00 CDT, Controlled type 2 diabetes mellitus without complication | Combined hyperlipidemia | Benign essential hypertension | GERD (gastroesophageal reflux disease) | Dry eye of left side Additional Orders: Comment: Future Orders: Albumin/Creatinine Ratio, Urine,Urine, Routine collect, *Est. 12/13/14 due within 4 months, Once, Nurse Collect Non-Blood, Controlled type 2 diabetes mellitus without complication, Order for future visit Future Orders: Hgb A1c,Blood, Routine Collect, *Est. 12/13/14 due within 4 months, Once, Lab Collect, Controlled type 2 diabetes mellitus without complication, Order for future visit Future Orders: Triglycerides,Blood, Routine Collect, *Est. due within 4 months, Once, Lab Collect, Combined hyperlipidemia, Order for future visit End of Orders ."
--- OUTSIDE RECORDS SUMMARY | 2017-01-19 20:15 | XMS REPORT | Referral Summary ---
Author Author [facility], Family Medicine Organization [facility] Address Unknown Phone Unavailable Care Team Providers Care Director Intelligence Analysis Programs Name Role Phone Heidy Carrero Primary Care Physician [phone] Encounter Date(s): 07/03/16 - 07/03/16 [facility], [address] [place] [phone] Discharge Diagnosis: Mixed hyperlipidemia Discharge Diagnosis: Acute bronchitis Discharge Diagnosis: Need for influenza vaccination Discharge Diagnosis: Benign hypertension Discharge Diagnosis: Gout Discharge Diagnosis: Fatty liver Discharge Diagnosis: Anxiety disorder Discharge Diagnosis: Controlled type 2 diabetes mellitus without complication Discharge Diagnosis: Morbid obesity Discharge Disposition: 01-Home or Self Care Attending Physician: James Carrero MD Admitting Physician: James Carrero MD Vital Signs Most recent to 1 oldest [Reference Range]: Temperature Tympanic 36.3 degC [36.6-38.1 degC] *LOW* (07/03/16 9:58 AM) Peripheral Pulse 60 bpm Rate [60-100 bpm] (07/03/16 9:58 AM) Blood Pressure 118/66 mmHg [90-140/60-90 mmHg] (07/03/16 9:58 AM) Problem List Condition Effective Dates Status Health Status Informant Acute URI(Confirmed) Active Benign essential Active hypertension(Confirm ed) Benign Active hypertension(Confirm ed) Bronchitis(Confirmed Active ) Chicken Resolved pox(Confirmed) Chronic low back Active pain(Confirmed) Chronic upper back Resolved pain(Confirmed) Depression(Confirmed Resolved ) Dry eye of left Active side(Confirmed) Eczema(Confirmed) Resolved Epidermal inclusion Active cyst(Confirmed) GERD Active (gastroesophageal reflux disease)(Confirmed) Anxiety Resolved disorder(Confirmed) Tendinopathy of left Active gluteus medius(Confirmed) Gout(Confirmed) [...] Active ampicillin severe swelling /rash Severe Active azithromycin heart racing Active cephalexin facial swelling Active clarithromycin decreased blood sugar Active erythromycin nausea/vomiting Active iodine rash, swelling Severe Active omeprazole rash Active predniSONE steroid induced delerium Active simvastatin muscle weakness Active traMADol nausea, dizziness Active Zoloft dizzy and disorientation Active Medications allopurinol 100 mg oral tablet 200 mg 2 tabs, Oral, Daily, # 180 tabs, 0 Refill(s), TAKE 3 TABLETS BY MOUTH EVERY DAY Start Date: 01/13/16 Status: Ordered Colace 100 mg oral capsule 200 mg 2 caps, Oral, Daily, # 180 caps, 0 Refill(s) Start Date: 01/13/16 Status: Ordered Crestor 5 mg oral tablet 5 mg 1 tabs, Oral, q2Days, # 45 tabs, 3 Refill(s), [facility]: [facility] , 1 tabs Oral q2Days Start Date: 03/27/16 Status: Ordered Dramamine 100 mg, Oral, Bedtime (once a day), 2 of the 50 mg tabs, 0 Refill(s) Start Date: 03/09/14 Status: Ordered furosemide 20 mg oral tablet 20 mg 1 tabs, Oral, Daily, as needed for edema, # 90 tabs, 0 Refill(s), TAKE 2 TABLETS EVERY MORNING Start Date: 01/13/16 Status: Ordered Glucometer (DME) DME Item Freestyle [...] Instructions, # 300 Each, 3 Refill(s), Pharmacy: [facility], Prescision Xtra Blood Glucose strips--Use to test blood 4 times a d... Start Date: 05/03/14 Status: Ordered Glucometer strips (DME) DME Item Free style GLUCOSE STRIPS--USE TO TEST BLOOD 4 TIMES A DAY FOR DIABETES E11.8, See Instructions, # 6 boxes, 3 Refill(s), Free style GLUCOSE STRIPS--USE TO TEST BLOOD 4 TIMES A DAY FOR DIABETES E11.8, 100 strips per month / 3 month supply Start Date: 03/27/16 Status: Ordered hydrochlorothiazide 12.5 mg oral tablet 6.25 mg 0.5 tabs, Oral, Daily, as needed for edema, # 45 tabs, 3 Refill(s), [facility]: [facility], 0.5 tabs Oral Daily,x90 days Start Date: 01/23/16 Stop Date: 01/17/17 Status: Ordered ibuprofen 4 tabs, Oral, TID, as needed for back pain, 0 Refill(s) Start Date: 03/09/14 Status: Ordered irbesartan 150 mg oral tablet 150 mg 1 tabs, Oral, Daily, # 90 tabs, 3 Refill(s), other reason (Rx) Start Date: 03/27/16 Status: Ordered Januvia 100 mg oral tablet 100 mg 1 tabs, Oral, q2Days, # 45 tabs, 3 Refill(s), [facility]: [facility] Start Date: 03/27/16 Stop Date: 03/22/17 Status: Ordered Jardiance 10 mg oral tablet 10 mg 1 tabs, Oral, qAM, Patient will pick this up at the pharmacy on 07/30/16. , # 90 tabs, 2 Refill(s), [facility]: [facility], 1 tabs Oral qAM,x90 days,Instr:Patient will pick this up at the pharmacy on 07/30/16. Start Date: 07/03/16 Stop Date: 03/30/17 Status: Ordered loperamide 2 mg, Oral, Daily, as needed for diarrhea, 0 Refill(s) Start Date: 12/27/15 Status: Ordered metFORMIN 500 mg oral tablet 1,000 mg 2 tabs, Oral, BID, # 360 tabs, 3 Refill(s), [facility]: [facility], 2 tabs Oral BID Start Date: 03/27/16 Status: Ordered metoprolol tartrate 25 mg oral tablet 25 mg 1 tabs, Oral, BID, Patient will pick this up on 07/30/16., # 180 tabs, 2 Refill(s), [facility]: [facility] Start Date: 07/03/16 Stop Date: 03/30/17 Status: Ordered multivitamin 1 tabs, Oral, Daily, 0 Refill(s) Start Date: 03/09/14 Status: Ordered pioglitazone 15 mg oral tablet 15 mg 1 tabs, Oral, Daily, # 90 tabs, 0 Refill(s), TAKE 1 TABLET DAILY Start Date: 01/13/16 Status: Ordered Tussin 200 mg, Oral, q4hr, as needed for cough/cold, Diabetic Tussin, 0 Refill(s) Start Date: 12/27/15 Status: Ordered Results No data available for this section Immunizations Vaccine Date Refusal Reason tetanus/diphth/pertuss (Tdap) adult/adol 06/01/11 influenza virus vaccine, inactivated 07/03/16 influenza virus vaccine, inactivated1 07/04/14 influenza virus [...] Patient Education Author: James Carrero MD Date: 07/03 Nutrition Fatty Liver Fatty liver, also called hepatic steatosis or steatohepatitis, is a condition in which too much fat has built up in your liver cells. The liver removes harmful substances from your bloodstream. It produces fluids your body needs. It also helps your body use and store energy from the food you eat. In many cases, fatty liver does not cause symptoms or problems. It is often diagnosed when tests are being done for other reasons. However, over time, fatty liver can cause inflammation that may lead to more serious liver problems , such as scarring of the liver (cirrhosis). CAUSES Causes of fatty liver may include: Drinking too much alcohol. Poor nutrition. Obesity. [place] syndrome. Diabetes. Hyperlipidemia. . Certain drugs. Poisons. Some viral infections. RISK FACTORS You may be more likely to develop fatty liver if you: Abuse alcohol. Are . Are overweight. Have diabetes. Have hepatitis. Have a high triglyceride level. SIGNS AND SYMPTOMS Fatty liver often does not cause any symptoms. In cases where symptoms develop, they can include: Fatigue. Weakness. Weight loss. Confusion. Abdominal pain. Yellowing of your skin and the white parts of your eyes (jaundice). Nausea and vomiting. DIAGNOSIS Fatty liver may be diagnosed by: Physical exam and medical history. Blood tests. Imaging tests, such as an ultrasound, CT scan, or MRI. Liver biopsy. A small sample of liver tissue is removed using a needle. The sample is then looked at under a microscope. TREATMENT Fatty liver is often caused by other health conditions. Treatment for fatty liver may involve medicines and lifestyle changes to manage conditions such as: Alcoholism. High cholesterol. Diabetes. Being overweight or obese. HOME CARE INSTRUCTIONS Eat a healthy diet as directed by your health care provider. Exercise regularly. This can help you lose weight and control your cholesterol and diabetes. Talk to your health care provider about an exercise plan and which activities are best for you. Do not drink alcohol. Take medicines only as directed by your health care provider. SEEK MEDICAL CARE IF: You have difficulty controlling your: Blood sugar. Cholesterol. Alcohol consumption. SEEK IMMEDIATE MEDICAL CARE IF: You have abdominal pain. You have jaundice. You have nausea and vomiting. This information is not intended to replace advice given to you by your health care provider. Make sure you discuss any questions you have with your health care provider. Document Released: 11/05/2006 Document Revised: 10/11/2015 Document Reviewed: [facility] Patient Information 2016 [employer]!. No follow up information was provided. Extracted from: Title: multiple problems Author: James Carrero MD Date: 07/03/16 Impression and Plan Diagnosis Controlled type 2 diabetes mellitus without complication ([id number]-NE E11.9, Discharge, Medical). Benign hypertension (YDD36-VF I10, Discharge, Medical). Anxiety disorder (JEX43-LI F41.1, Discharge, Medical). Morbid obesity (YDS21-QO E66.01, Discharge, Medical). Mixed hyperlipidemia (MDA49-VX E78.2, Discharge, Medical). Fatty liver (GRR38-QY K76.0, Discharge, Medical). Need for influenza vaccination (QCY60-UA Z23, Discharge, Medical). Gout (CTB04-BB M10.9, Discharge, Medical). Acute bronchitis (TKI32-JC J20.9, Discharge, Medical). Plan: 1) Healthy diet and daily exercise discussed at length. 2) Flu shot given today. 3) Start Jardiance 10 mg daily. 4) Stop the Actos once you get Jardiance. 5) You can stop the Furosemide and the hydrochlorothiazide once you start Jardiance. 6) Get fasting lab in 3 months. 7) See me in 3 months and as needed. 8) You have my permission to reduce your Allopurinol to 100 mg daily. 9) Your bronchitis seems to be gradually resolving at this time.. Orders Orders (Selected) Outpatient Orders Completed influenza virus vaccine, inactivated: 0.5 mL, IntraMuscular, Once Future (On Hold) Albumin/Creatinine Ratio, Urine: CMP: Hgb A1c: Triglycerides: Uric Acid: Order Office Visit Level 5 Est 35574: Prescriptions Prescribed Jardiance 10 mg oral tablet: 10 mg=1 tabs, Oral, qAM, for 90 days, Patient will pick this up at the pharmacy on 07/30/16., 90 tabs, 2 Refill(s) metoprolol tartrate 25 mg oral tablet: 25 mg=1 tabs, Oral, BID, for 90 days, Patient will pick this up on 07/30/16., 180 tabs, 2 Refill(s). Dx/Order Association Plan: Diagnosis: Acute bronchitis Comment: Ordered: Office Visit Level 5 Est [id number]; 07/03/16 15:19:00 CDT, Acute bronchitis | Controlled type 2 diabetes mellitus without complication | Benign hypertension | Fatty liver | Mixed hyperlipidemia | Anxiety disorder | Gout | Morbid obesity | Need for influenza vaccination Diagnosis: Anxiety disorder Comment: Ordered: Office Visit Level 5 Est [id number]; 07/03/16 15:19:00 CDT, Acute bronchitis | Controlled type 2 diabetes mellitus without complication | Benign hypertension | Fatty liver | Mixed hyperlipidemia | Anxiety disorder | Gout | Morbid obesity | Need for influenza vaccination Diagnosis: Benign hypertension Comment: Ordered: Office Visit Level 5 Est [id number]; 07/03/16 15:19:00 CDT, Acute bronchitis | Controlled type 2 diabetes mellitus without complication | Benign hypertension | Fatty liver | Mixed hyperlipidemia | Anxiety disorder | Gout | Morbid obesity | Need for influenza vaccination Diagnosis: Controlled type 2 diabetes mellitus without complication Comment: Ordered: Office Visit Level 5 Est [id number]; 07/03/16 15:19:00 CDT, Acute bronchitis | Controlled type 2 diabetes mellitus without complication | Benign hypertension | Fatty liver | Mixed hyperlipidemia | Anxiety disorder | Gout | Morbid obesity | Need for influenza vaccination Diagnosis: Fatty liver Comment: Ordered: Office Visit Level 5 Est [id number]; 07/03/16 15:19:00 CDT, Acute bronchitis | Controlled type 2 diabetes mellitus without complication | Benign hypertension | Fatty liver | Mixed hyperlipidemia | Anxiety disorder | Gout | Morbid obesity | Need for influenza vaccination Diagnosis: Gout Comment: Ordered: Office Visit Level 5 Est [id number]; 07/03/16 15:19:00 CDT, Acute bronchitis | Controlled type 2 diabetes mellitus without complication | Benign hypertension | Fatty liver | Mixed hyperlipidemia | Anxiety disorder | Gout | Morbid obesity | Need for influenza vaccination Diagnosis: Mixed hyperlipidemia Comment: Ordered: Office Visit Level 5 Est [id number]; 07/03/16 15:19:00 CDT, Acute bronchitis | Controlled type 2 diabetes mellitus without complication | Benign hypertension | Fatty liver | Mixed hyperlipidemia | Anxiety disorder | Gout | Morbid obesity | Need for influenza vaccination Diagnosis: Morbid obesity Comment: Ordered: Office Visit Level 5 Est [id number]; 07/03/16 15:19:00 CDT, Acute bronchitis | Controlled type 2 diabetes mellitus without complication | Benign hypertension | Fatty liver | Mixed hyperlipidemia | Anxiety disorder | Gout | Morbid obesity | Need for influenza vaccination Diagnosis: Need for influenza vaccination Comment: Ordered: Office Visit Level 5 Est [id number]; 07/03/16 15:19:00 CDT, Acute bronchitis | Controlled type 2 diabetes mellitus without complication | Benign hypertension | Fatty liver | Mixed hyperlipidemia | Anxiety disorder | Gout | Morbid obesity | Need for influenza vaccination Other status: influenza virus vaccine, inactivated; 0.5 mL, IntraMuscular, Once, First Dose: 07/03/16 10:34:00 CDT, Stop Date: 07/03/16 10: 34:00 CDT (Completed) Diagnosis: Controlled type 2 diabetes mellitus without complication Comment: Diagnosis: Controlled type 2 diabetes mellitus without complication Comment: Diagnosis: Fatty liver Comment: Diagnosis: Benign hypertension Comment: Diagnosis: Gout Comment: Diagnosis: Mixed hyperlipidemia Comment: Diagnosis: Controlled type 2 diabetes mellitus without complication Comment: Additional Orders: Comment: Ordered: Jardiance 10 mg oral tablet,10 mg 1 tabs, Oral, qAM, Patient will pick this up at the pharmacy on 07/30/16., # 90 tabs, 2 Refill(s), [facility]: [facility], 1 tabs Oral qAM,x90 days,Instr:Patient will pick this up at the pharmacy on 07/30/16. Discontinued: metoprolol tartrate 25 mg oral tablet,25 mg 1 tabs, Oral, BID, 0 Refill(s) Ordered: metoprolol tartrate 25 mg oral tablet,25 mg 1 tabs, Oral, BID, Patient will pick this up on 07/30/16., # 180 tabs, 2 Refill(s), Pharmacy : [facility] End of Orders ."
--- OUTSIDE RECORDS SUMMARY | 2017-01-19 20:15 | XMS REPORT | Referral Summary ---
Author Author [facility], [facility] Medicine Organization [facility] Address Unknown Phone Unavailable Care Team Providers Care Geriatric Psychiatrist Name Role Phone Heidy Carrero Primary Care Physician [phone] Encounter VC Date(s): 06/27/15 - 06/27/15 [facility], [address] [place] [id number]- Discharge Disposition: 01-Home or Self Care Attending Physician: James Carrero MD Admitting Physician: James Carrero MD Vital Signs Most recent to 1 oldest [Reference Range]: Peripheral Pulse 76 bpm Rate [60-100 bpm] (06/27/15 9:47 AM) Respiratory Rate 18 br/min [14-20 br/min] (06/27/15 9:47 AM) Blood Pressure 112/78 mmHg [90-140/60-90 mmHg] (06/27/15 9:47 AM) SpO2 98 % (06/27/15 9:47 AM) Problem List Condition Effective Dates Status [...] Daily, # 90 tabs, 3 Refill(s), Pharmacy: [facility], 1 tabs Oral Daily Start Date: 05/29/14 Status: Ordered ACTOS 15 MG ORAL TABLET See Instructions, 1 TABS ORAL DAILY, # 90 tabs, 1 Refill(s), eRx: [facility], 1 TABS ORAL DAILY Start Date: 04/08/15 Status: Ordered allopurinol 100 mg oral tablet 200 mg 2 tabs, Oral, Daily, # 270 tabs, 1 Refill(s), eRx: [facility], TAKE 3 TABLETS BY MOUTH EVERY DAY Start Date: 04/15/15 Status: Ordered Colace 100 mg oral capsule 2 caps, Oral, Daily, as needed for constipation, 0 Refill(s) Start Date: 03/09/14 Status: Ordered Crestor 5 mg oral tablet See Instructions, TAKE 1 TABLET EVERY OTHER DAY AT BEDTIME, # 45 tabs, eRx: [facility], TAKE 1 TABLET EVERY OTHER DAY AT BEDTIME Start Date: 06/24/15 Status: Ordered Dramamine 75 mg, Oral, Bedtime (once a day), 3 of the 25 mg tabs, 0 Refill(s) Start Date: 03/09/14 Status: Ordered furosemide 20 mg oral tablet See Instructions, TAKE 2 TABLETS EVERY MORNING, # 180 tabs, 2 Refill(s), eRx: [facility], TAKE 2 TABLETS EVERY MORNING Start Date: 11/16/14 Status: Ordered Glucometer strips (DME) DME Item Prescision Xtra Blood Glucose strips--Use to test blood 4 times a day for diabetes 250.00, See Instructions, # 300 Each, 3 Refill(s), Pharmacy: [facility], Prescision Xtra Blood Glucose strips--Use [...] Daily, # 90 tabs, 3 Refill(s), Pharmacy: [facility], 1 tabs Oral Daily Start Date: 06/27/15 Status: Ordered Klor-Con 10 10 mEq, Oral, Daily, as needed for leg cramps, 0 Refill(s) Start Date: 03/09/14 Status: Ordered lansoprazole 30 mg oral delayed release capsule 30 mg 1 caps, Oral, Daily, # 180 caps, 2 Refill(s), eRx: [facility], TAKE 1 CAPSULE BY MOUTH [...] 0 Refill(s) Start Date: 03/09/14 Status: Ordered [place] 5 mg-325 mg oral tablet 2 tabs, Oral, Bedtime (once a day), as needed for pain, Joshua, # 180 tabs, 0 Refill(s) Start Date: 04/29/15 Status: Ordered Results No data available for [...] Patient Education Author: James Carrero MD Date: 06/27 Family Medicine Back Pain, Adult Low back pain is very common. About 1 in 5 people have back pain.The cause of low back pain is rarely dangerous. The pain often gets better over time.About half of people with a sudden onset of back pain feel better in just 2 weeks. About 8 in 10 people feel better by 6 weeks. CAUSES Some common causes of back pain include: Strain of the muscles or ligaments supporting the spine. Wear and tear (degeneration) of the spinal discs. Arthritis. Direct injury to the back. DIAGNOSIS Most of the time, the direct cause of low back pain is not known.However, back pain can be treated effectively even when the exact cause of the pain is unknown.Answering your caregiver's questions about your overall health and symptoms is one of the most accurate ways to make sure the cause of your pain is not dangerous. If your caregiver needs more information, he or she may order lab work or imaging tests (X-rays or MRIs).However, even if imaging tests show changes in your back, this usually does not require surgery. HOME CARE INSTRUCTIONS For many people, back pain returns.Since low back pain is rarely dangerous, it is often a condition that people can learn to manageon their own. Remain active. It is stressful on the back to sit or automobile engine assembler one place. Do not sit, drive, or automobile engine assembler one place for more than 30 minutes at a time. Take short walks on level surfaces as soon as pain allows.Try to increase the length of time you walk each day. Do not stay in bed.Resting more than 1 or 2 days can delay your recovery. Do not avoid exercise or work.Your body is made to move.It is not dangerous to be active, even though your back may hurt.Your back will likely heal faster if you return to being active before your pain is gone. Pay attention to your body when you bend and lift. Many people have less discomfortwhen lifting if they bend their knees, keep the load close to their bodies,and avoid twisting. Often, the most comfortable positions are those that put less stress on your recovering back. Find a comfortable position to sleep. Use a firm mattress and lie on your side with your knees slightly bent. If you lie on your back, put a pillow under your knees. Only take [id number] or prescription medicines as directed by your caregiver. Eyiq-ypk-pkrdqcu medicines to reduce pain and inflammation are often the most helpful.Your caregiver may prescribe muscle relaxant drugs.These medicines help dull your pain so you can more quickly return to your normal activities and healthy exercise. Put ice on the injured area. Put ice in a plastic bag. Place a towel between your skin and the bag. Leave the ice on for 15-20 minutes, 03-04 times a day for the first 2 to 3 days. After that, ice and heat may be alternated to reduce pain and spasms. Ask your caregiver about trying back exercises and gentle massage. This may be of some benefit. Avoid feeling anxious or stressed.Stress increases muscle tension and can worsen back pain.It is important to recognize when you are anxious or stressed and learn ways to manage it.Exercise is a great option. SEEK MEDICAL CARE IF: You have pain that is not relieved with rest or medicine. You have pain that does not improve in 1 week. You have new symptoms. You are generally not feeling well. SEEK IMMEDIATE MEDICAL CARE IF: You have pain that radiates from your back into your legs. You develop new bowel or bladder control problems. You have unusual weakness or numbness in your arms or legs. You develop nausea or vomiting. You develop abdominal pain. You feel faint. Document Released: 09/20/2006 Document Revised: 03/21/2013 Document Reviewed: [facility] Patient Information 2015 [employer]. This information is not intended to replace advice given to you by your health care provider. Make sure you discuss any questions you have with your health care provider. Diabetes and Exercise Exercising regularly is important. It is not just about losing weight. It has many health benefits, such as: Improving your overall fitness, flexibility, and endurance. Increasing your bone density. Helping with weight control. Decreasing your body fat. Increasing your muscle strength. Reducing stress and tension. Improving your overall health. People with diabetes who exercise gain additional benefits because exercise: Reduces appetite. Improves the body's use of blood sugar (glucose). Helps lower or control blood glucose. Decreases blood pressure. Helps control blood lipids (such as cholesterol and triglycerides). Improves the body's use of the hormone insulin by: Increasing the body's insulin sensitivity. Reducing the body's insulin needs. Decreases the risk for heart disease because exercising: Lowers cholesterol and triglycerides levels. Increases the levels of good cholesterol (such as high-density lipoproteins [HDL]) in the body. Lowers blood glucose levels. YOUR ACTIVITY PLAN Choose an activity that you enjoy and set realistic goals. Your health care provider or special educator can help you make an activity plan that works for you. Exercise regularly as directed by your health care provider. This includes: Performing resistance training twice a week such as push-ups, sit-ups, lifting weights, or using resistance bands. Performing 150 minutes of cardio exercises each week such as walking, running, or playing sports. Staying active and spending no more than 90 minutes at one time being inactive. Even short bursts of exercise are good for you. Three 10-minute sessions spread throughout the day are just as beneficial as a single 30-minute session. Some exercise ideas include: Taking the dog for a walk. Taking the stairs instead of the elevator. Dancing to your favorite song. Doing an exercise video. Doing your favorite exercise with a friend. RECOMMENDATIONS FOR EXERCISING WITH TYPE 1 OR TYPE 2 DIABETES Check your blood glucose before exercising. If blood glucose levels are greater than 240 mg/dL, check for urine ketones. Do not exercise if ketones are present. Avoid injecting insulin into areas of the body that are going to be exercised. For example, avoid injecting insulin into: The arms when playing tennis. The legs when jogging. Keep a record of: Food intake before and after you exercise. Expected peak times of insulin action. Blood glucose levels before and after you exercise. The type and amount of exercise you have done. Review your records with your health care provider. Your health care provider will help you to develop guidelines for adjusting food intake and insulin amounts before and after exercising. If you take insulin or oral hypoglycemic agents, watch for signs and symptoms of hypoglycemia. They include: Dizziness. Shaking. Sweating. Chills. Confusion. Drink plenty of water while you exercise to prevent dehydration or heat stroke. Body water is lost during exercise and must be replaced. Talk to your health care provider before starting an exercise program to make sure it is safe for you. Remember, almost any type of activity is better than none. Document Released: 12/10/2004 Document Revised: 02/04/2015 Document Reviewed: [employer] Patient Information 2015 [facility]. This information is not intended to replace advice given to you by your health care provider. Make sure you discuss any questions you have with your health care provider. No follow up information was provided. Extracted from: Title: DM, hyperlipidemia, HTN Author: James Carrero MD Date: 06/27/15 Impression and Plan Diagnosis Acute URI (ICD9 465.9, Working, Medical). Benign essential hypertension (ICD9 401.1, Working, Medical). Chronic low back pain (ICD9 724.2, Working, Medical). Combined hyperlipidemia (ICD9 272.2, Working, Medical). Controlled type 2 diabetes mellitus without complication (ICD9 250.00, Working, Medical). GERD (gastroesophageal reflux disease) (ICD9 530.81, Working, Medical). Hand tendinitis (ICD9 727.05, Working, Medical). Morbid obesity (ICD9 278.01, Working, Medical). Plan: 1) Healthy diet, daily exercise and weight loss helps most things. 2) Stop the Avalide, and switch to Irbesartan 150 mg daily. 3) Continue your other meds. 4) See me in 3 months and as needed. 5) Get a flu shot.. Orders Orders (Selected) Outpatient Orders Ordered Office Visit Level 4 Est 60022: Prescriptions Prescribed irbesartan 150 mg oral tablet: 150 mg=1 tabs, Oral, Daily, 90 tabs, 3 Refill(s). Dx/Order Association Plan: Diagnosis: Acute URI Comment: Ordered: Office Visit Level 4 Est 41037; 06/27/15 10:23:00 CDT, Controlled type 2 diabetes mellitus without complication | Benign essential hypertension | Combined hyperlipidemia | Hand tendinitis | Acute URI Diagnosis: Benign essential hypertension Comment: Ordered: Office Visit Level 4 Est 50266; 06/27/15 10:23:00 CDT, Controlled type 2 diabetes mellitus without complication | Benign essential hypertension | Combined hyperlipidemia | Hand tendinitis | Acute URI Diagnosis: Chronic low back pain Comment: Diagnosis: Combined hyperlipidemia Comment: Ordered: Office Visit Level 4 Est [id number]; 06/27/15 10:23:00 CDT, Controlled type 2 diabetes mellitus without complication | Benign essential hypertension | Combined hyperlipidemia | Hand tendinitis | Acute URI Diagnosis: Controlled type 2 diabetes mellitus without complication Comment: Ordered: Office Visit Level 4 Est 00740; 06/27/15 10:23:00 CDT, Controlled type 2 diabetes mellitus without complication | Benign essential hypertension | Combined hyperlipidemia | Hand tendinitis | Acute URI Diagnosis: GERD (gastroesophageal reflux disease) Comment: Diagnosis: Hand tendinitis Comment: Ordered: Office Visit Level 4 Est [id number]; 06/27/15 10:23:00 CDT, Controlled type 2 diabetes mellitus without complication | Benign essential hypertension | Combined hyperlipidemia | Hand tendinitis | Acute URI Diagnosis: Morbid obesity Comment: Additional Orders: Comment: Ordered: irbesartan 150 mg oral tablet,150 mg 1 tabs, Oral, Daily, # 90 tabs, 3 Refill(s), Pharmacy: [facility], 1 tabs Oral Daily End of Orders ."
--- OUTSIDE RECORDS SUMMARY | 2017-01-19 20:16 | XMS REPORT | Referral Summary ---
Author Author [facility], [facility] Organization [facility] Address Unknown Phone Unavailable Care Team Providers Care Felt Hat Inspector And Packer Name Role Phone Heidy Carrero Primary Care Physician [phone] Encounter Date(s): 10/02/16 - 10/02/16 [facility], [address] [place] [id number]- Discharge Diagnosis: Chronic sinusitis Discharge Diagnosis: Benign hypertension Discharge Diagnosis: Osteoarthritis of right knee Discharge Diagnosis: Anxiety disorder Discharge Diagnosis: Low back pain Discharge Diagnosis: Controlled type 2 diabetes mellitus Discharge Diagnosis: Combined hyperlipidemia Discharge Diagnosis: Cervicalgia Discharge Disposition: 01-Home or Self Care Attending Physician: James Carrero MD Admitting Physician: James Carrero MD Vital Signs Most recent to 1 oldest [Reference Range]: Temperature Tympanic 36.0 degC [36.6-38.1 degC] *LOW* (10/02/16 9:30 AM) Peripheral Pulse 60 bpm Rate [60-100 bpm] (10/02/16 9:30 AM) Respiratory Rate 16 br/min [14-20 br/min] (10/02/16 9:30 AM) Blood Pressure 114/80 mmHg [90-140/60-90 mmHg] (10/02/16 9:30 AM) Problem List Condition Effective Dates Status [...] EVERY DAY Start Date: 01/13/16 Status: Ordered aspirin 81 mg, Oral, Daily, 0 Refill(s) Start Date: 10/02/16 Status: Ordered Colace 100 mg oral capsule 200 mg 2 caps, Oral, Daily, # 180 caps, 3 Refill(s), [facility], 2 caps Oral Daily Start Date: 10/02/16 Status: Ordered Crestor 5 mg oral tablet 5 mg 1 tabs, Oral, q2Days, # 45 tabs, 3 Refill(s), [facility]acy: [facility] , 1 tabs Oral q2Days Start Date: 03/27/16 Status: Ordered furosemide 20 mg oral tablet 20 mg 1 tabs, Oral, Daily, as needed for edema, # 90 tabs, 0 Refill(s), TAKE 2 TABLETS EVERY MORNING Start Date: 01/13/16 Status: Ordered gabapentin 300 mg oral capsule 300 mg 1 caps, Oral, Bedtime (once a day), # 90 caps, 3 Refill(s), [facility]: [facility], 1 caps Oral Bedtime (once a day),x90 days Start Date: 10/02/16 Stop Date: 09/27/17 Status: Ordered gabapentin 300 mg oral capsule 300 mg 1 caps, Oral, Bedtime (once a day), # 30 caps, 11 Refill(s), Pharmacy: [id number], 1 caps Oral Bedtime (once a day) Start Date: 10/02/16 Status: Ordered Glucometer (DME) DME Item Freestyle [...] Instructions, # 300 Each, 3 Refill(s), Pharmacy: [facility], Prescision Xtra Blood Glucose strips--Use [...] Status: Ordered hydrochlorothiazide 12.5 mg oral tablet See Instructions, 1 tabs Oral Daily 90 days, # 90 tabs, 3 Refill(s), [facility]: [facility], 0.5 tabs Oral Daily,x90 days Start Date: 01/23/16 Status: Ordered ibuprofen 4 tabs, Oral, TID, as needed for back pain, 0 Refill(s) Start Date: 03/09/14 Status: Ordered irbesartan 150 mg oral tablet 150 mg 1 tabs, Oral, Daily, # 90 tabs, 3 Refill(s), other reason (Rx) Start Date: 03/27/16 Status: Ordered Januvia 100 mg oral tablet 100 mg 1 tabs, Oral, Daily, # 90 tabs, 3 Refill(s), [facility]: [facility] Start Date: 10/02/16 Status: Ordered Jardiance 10 mg oral tablet 10 mg 1 tabs, Oral, qAM, # 90 tabs, 0 Refill(s), [facility]acy: [facility], 1 tabs Oral qAM Start Date: 09/30/16 Status: Ordered loperamide 2 mg, Oral, Daily, [...] 0 Refill(s) Start Date: 03/09/14 Status: Ordered Tussin 200 mg, Oral, q4hr, as needed for cough/cold, Diabetic Tussin, 0 Refill(s) Start Date: 12/27/15 Status: Ordered Results No data available for this section Immunizations Given and Recorded Vaccine Date Status Refusal Reason tetanus/diphth/pertuss (Tdap) adult/adol 06/01/11 Recorded influenza virus vaccine, inactivated 07/03/16 Given influenza virus vaccine, inactivated1 07/04/14 Recorded influenza virus vaccine, live 08/25/13 Given influenza virus vaccine, live 09/08/12 Given pneumococcal 23-polyvalent vaccine 07/19/97 Recorded tetanus-diphth toxoids (Td) adult/adol 04/13/95 Recorded 1Result Comment: [07/04/2014] See scanned document Procedures Procedure Date Related Diagnosis Body Site Mammogram 09/07/16 Pap smear, as part of routine gynecological [...] Patient Education Author: James Carrero MD Date: Home Health Care Diabetes and Exercise Exercising regularly is important. [...] ACTIVITY PLAN Choose an activity that you enjoy, and set realistic goals. To exercise safely, you should begin practicing any new physical activity slowly, and gradually increase the intensity of the exercise over time. Your health care provider or nurse educator can help create an activity plan that works for you. General recommendations include: Encouraging children to engage in at least 60 minutes of physical activity each day. Stretching and performing strength training exercises, such as yoga or weight lifting, at least 2 times per week. Performing a total of at least 150 minutes of moderate-intensity exercise each week, such as brisk walking or water aerobics. Exercising at least 3 days per week, making sure you allow no more than 2 consecutive days to pass without exercising. Avoiding long periods of inactivity (90 minutes or more). When you have to spend an extended period of time sitting down, take frequent breaks to walk or stretch. RECOMMENDATIONS FOR EXERCISING WITH TYPE 1 OR [...] type of activity is better than none. This information is not intended to replace advice given to you by your health care provider. Make sure you discuss any questions you have with your health care provider. Document Released: 12/10/2004 Document Revised: 02/04/2016 Document Reviewed: [employer] Patient Education 2016 [employer] No follow up information was provided. Extracted from: Title: multiple problems Author: James Carrero MD Date: 10/02/16 Impression and Plan Diagnosis Controlled type 2 diabetes mellitus (OYP85-BU E11.9, Discharge, Medical). Benign hypertension (QLG14-VD I10, Discharge, Medical). Combined hyperlipidemia (VHN41-UV E78.2, Discharge, Medical). Anxiety disorder (QBZ91-RD F41.1, Discharge, Medical). Chronic sinusitis (LAY55-AU J32.9, Discharge, Medical). Low back pain (TBS76-BA M54.5, Discharge, Medical). Cervicalgia (RXL21-MW M54.2, Discharge, Medical). Osteoarthritis of right knee (EQM15-JL M17.9, Discharge, Medical). Plan: 1) See me in 3 months. 2) Cancel the Jardiance, per patient request until next visit/assessment. 3) Lab in about 3 months. 4) Use Saline NS, Saline nasal gel, and humidity, and nasal rinses to help with your chronic sinusitis. No antibiotics currently. 5) Continue your present meds, except as otherwise noted below. 6) Healthy diet and daily exercise helps most things. 7) May take Gabapentin 300 mg daily at bedtime for your chronic pain. 8) Stop the Dramamine and eliminate ibuprofen also. . Orders Orders (Selected) Outpatient Orders Ordered Office Visit Level 4 Est 87056: Future (On Hold) Albumin/Creatinine Ratio, Urine: CMP: Fasting Lipid Profile: Hgb A1c: Prescriptions Prescribed Colace 100 mg oral capsule: 200 mg=2 caps, Oral, Daily, 180 caps, 3 Refill(s) Januvia 100 mg oral tablet: 100 mg=1 tabs, Oral, Daily, 90 tabs, 3 Refill(s) gabapentin 300 mg oral capsule: 300 mg=1 caps, Oral, Bedtime (once a day), 30 caps, 11 Refill(s) gabapentin 300 mg oral capsule: 300 mg=1 caps, Oral, Bedtime (once a day), for 90 days, 90 caps, 3 Refill(s). 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, Chronic sinusitis | Controlled type 2 diabetes mellitus | Osteoarthritis of right knee | Benign hypertension | Cervicalgia | Combined hyperlipidemia | Low back pain | Anxiety disorder Diagnosis: Benign hypertension Comment: Ordered: Office Visit Level 4 Est 23512; 10/02/16 15:20:00 HOSPICE ENTRANCE ATTENDANT, Chronic sinusitis | Controlled type 2 diabetes mellitus | Osteoarthritis of right knee | Benign hypertension | Cervicalgia | Combined hyperlipidemia | Low back pain | Anxiety disorder Diagnosis: Cervicalgia Comment: Ordered: Office Visit Level 4 Est 84299; 10/02/16 15:20:00 HOSPICE ENTRANCE ATTENDANT, Chronic sinusitis | Controlled type 2 diabetes mellitus | Osteoarthritis of right knee | Benign hypertension | Cervicalgia | Combined hyperlipidemia | Low back pain | Anxiety disorder Diagnosis: Chronic sinusitis Comment: Ordered: Office Visit Level 4 Est 11369; 10/02/16 15:20:00 HOSPICE ENTRANCE ATTENDANT, Chronic sinusitis | Controlled type 2 diabetes mellitus | Osteoarthritis of right knee | Benign hypertension | Cervicalgia | Combined hyperlipidemia | Low back pain | Anxiety disorder Diagnosis: Combined hyperlipidemia Comment: Ordered: Office Visit Level 4 Est 36719; 10/02/16 15:20:00 HOSPICE ENTRANCE ATTENDANT, Chronic sinusitis | Controlled type 2 diabetes mellitus | Osteoarthritis of right knee | Benign hypertension | Cervicalgia | Combined hyperlipidemia | Low back pain | Anxiety disorder Diagnosis: Controlled type 2 diabetes mellitus Comment: Ordered: Office Visit Level 4 Est 36991; 10/02/16 15:20:00 HOSPICE ENTRANCE ATTENDANT, Chronic sinusitis | Controlled type 2 diabetes mellitus | Osteoarthritis of right knee | Benign hypertension | Cervicalgia | Combined hyperlipidemia | Low back pain | Anxiety disorder Diagnosis: Low back pain Comment: Ordered: Office Visit Level 4 Est 78130; 10/02/16 15:20:00 HOSPICE ENTRANCE ATTENDANT, Chronic sinusitis | Controlled type 2 diabetes mellitus | Osteoarthritis of right knee | Benign hypertension | Cervicalgia | Combined hyperlipidemia | Low back pain | Anxiety disorder Diagnosis: Osteoarthritis of right knee Comment: Ordered: Office Visit Level 4 Est 30545; 10/02/16 15:20:00 HOSPICE ENTRANCE ATTENDANT, Chronic sinusitis | Controlled type 2 diabetes mellitus | Osteoarthritis of right knee | Benign hypertension | Cervicalgia | Combined hyperlipidemia | Low back pain | Anxiety disorder Diagnosis: Controlled type 2 diabetes mellitus Comment: Diagnosis: Controlled type 2 diabetes mellitus Comment: Diagnosis: Combined hyperlipidemia Comment: Diagnosis: Controlled type 2 diabetes mellitus Comment: Additional Orders: Comment: Ordered: Colace 100 mg oral capsule,200 mg 2 caps, Oral, Daily, # 180 caps, 3 Refill(s), [facility], 2 caps Oral Daily Ordered: Januvia 100 mg oral tablet,100 mg 1 tabs, Oral, Daily, # 90 tabs, 3 Refill(s), [facility]: [facility] Ordered: gabapentin 300 mg oral capsule,300 mg 1 caps, Oral, Bedtime (once a day), # 30 caps, 11 Refill(s), Pharmacy: [id number] , 1 caps Oral Bedtime (once a day) Ordered: gabapentin 300 mg oral capsule,300 mg 1 caps, Oral, Bedtime (once a day), # 90 caps, 3 Refill(s), [facility]: [facility], 1 caps Oral Bedtime (once a day),x90 days End of Orders ."
--- OUTSIDE RECORDS SUMMARY | 2017-01-19 20:16 | XMS REPORT | Referral Summary ---
Author Author [facility] [place], Family Medicine Organization [facility] Address Unknown Phone Unavailable Care Team Providers Care Nursing Staff Development Coordinator Name Role Phone Heidy Carrero Primary Care Physician [phone] Encounter VC Date(s): 03/28/15 - 03/28/15 [facility] [place], [address] [place] [id number] Discharge Diagnosis: Depression Discharge Disposition: 01-Home or [...] Daily, # 90 tabs, 3 Refill(s), Pharmacy: [facility], 1 tabs Oral Daily Start Date: 05/29/14 Status: Ordered ACTOS 15 MG ORAL TABLET See Instructions, 1 TABS ORAL DAILY, # 90 tabs, 1 Refill(s), eRx: [facility], 1 TABS ORAL DAILY Start Date: 04/08/15 Status: Ordered allopurinol 100 mg oral tablet 200 mg 2 tabs, Oral, Daily, # 270 tabs, 1 Refill(s), eRx: [facility], TAKE 3 TABLETS BY MOUTH EVERY DAY Start Date: 04/15/15 Status: Ordered Avalide 300 mg-12.5 mg oral tablet 0.5 tabs, Oral, Daily, # 45 tabs, 3 Refill(s), Pharmacy: [facility] Start Date: 07/22/15 Stop Date: [...] # 300 Each, 3 Refill(s), Pharmacy: [facility], Prescision Xtra Blood Glucose strips--Use [...] # 180 caps, 2 Refill(s), Pharmacy: [facility], 2 caps Oral Daily Start [...] 0 Refill(s) Start Date: 03/09/14 Status: Ordered [place] 5 mg-325 mg oral tablet 2 tabs, [...] serious side effect. FOR MORE INFORMATION National [place] on Mental Illness: www.linette.org National [place] of Mental Health: www.nimh.nih.gov Document Released: 09/17/2001 Document Revised: 03/21/2013 Document Reviewed: ExitCare Patient Information 2014 [employer]. No follow up information was provided. Extracted [...] Orders Ordered Office Visit Level 5 Est 58375: Wrist hand orthosis, wrist extension control cock-up, non molded, L3908: Future (On Hold) Albumin/Creatinine Ratio, Urine: CMP: Hgb A1c: Triglycerides: . Dx/Order Association Plan: Diagnosis: Benign essential hypertension Comment: Ordered: Office Visit Level 5 Est 26888; 03/28/15 10:33:00 CDT, Benign essential hypertension | Osteoarthritis of wrist | Controlled type 2 diabetes mellitus without complication | Combined hyperlipidemia | Morbid obesity Diagnosis: Combined hyperlipidemia Comment: Ordered: Office Visit Level 5 Est 61545; 03/28/15 10:33:00 CDT, Benign essential hypertension | Osteoarthritis of wrist | Controlled type 2 diabetes mellitus without complication | Combined hyperlipidemia | Morbid obesity Diagnosis: Controlled type 2 diabetes mellitus without complication Comment: Ordered: Office Visit Level 5 Est 79605; 03/28/15 10:33:00 CDT, Benign essential hypertension | Osteoarthritis of wrist | Controlled type 2 diabetes mellitus without complication | Combined hyperlipidemia | Morbid obesity Diagnosis: Depression Comment: Ordered: Office Visit Level 5 Est 45645; 03/28/15 10:33:00 CDT, Benign essential hypertension | Osteoarthritis of wrist | Controlled type 2 diabetes mellitus without complication | Combined hyperlipidemia | Morbid obesity Diagnosis: Morbid obesity Comment: Ordered: Office Visit Level 5 Est 17951; 03/28/15 10:33:00 CDT, Benign essential hypertension | Osteoarthritis of wrist | Controlled type 2 diabetes mellitus without complication | Combined hyperlipidemia | Morbid obesity Diagnosis: Osteoarthritis of wrist Comment: Ordered: Wrist hand orthosis, wrist extension control cock-up, non molded, L3908; 03/28/15 13:43:00 CDT, Osteoarthritis of wrist, 1 Office Visit Level 5 Est 26337; 03/28/15 10:33:00 CDT, Benign essential hypertension | [...]
--- OUTSIDE RECORDS SUMMARY | 2017-01-19 20:16 | XMS REPORT | Referral Summary ---
Author Author [facility], [facility] Organization [facility] Address Unknown Phone Unavailable Care Team Providers Care Post Hole Digging Machine Operator Name Role Phone Heidy Carrero Primary Care Physician [phone] Encounter VC Date(s): 06/27/15 - 06/27/15 [facility] [place], [address] [place] [id number]- Discharge Disposition: 01-Home or Self Care Attending [...] Daily, # 270 tabs, 1 Refill(s), eRx: [facility], TAKE 3 TABLETS BY MOUTH EVERY DAY Start Date: 04/15/15 Status: Ordered Avalide 300 mg-12.5 mg oral tablet 0.5 tabs, Oral, Daily, # 45 tabs, 3 Refill(s), Pharmacy: [facility] Start Date: 07/22/15 Stop Date: 07/16/16 Status: Ordered Colace 100 mg oral capsule 2 caps, Oral, Daily, as needed for constipation, 0 Refill(s) Start Date: 03/09/14 Status: Ordered Crestor 5 mg oral tablet See Instructions, TAKE 1 TABLET EVERY OTHER DAY AT BEDTIME, # 45 tabs, 3 Refill( s), Pharmacy: [facility], TAKE 1 TABLET EVERY OTHER DAY AT BEDTIME Start Date: 12/27/15 Status: Ordered Dramamine 150 mg, Oral, Bedtime (once a day), 3 of the 50 mg tabs, 0 Refill(s) Start Date: 03/09/14 Status: Ordered Excedrin 2 tabs, Oral, q6hr, as needed for headaches, 0 Refill(s) Start Date: 12/27/15 Status: Ordered furosemide 20 mg oral tablet [...] Instructions, # 300 Each, 3 Refill(s), Pharmacy: [facility], Prescision Xtra Blood Glucose strips--Use [...] Date: 10/16/15 Stop Date: 01/14/16 Status: Ordered lansoprazole 30 mg oral delayed release capsule 60 mg 2 caps, Oral, Daily, # 180 caps, 2 Refill(s), Pharmacy: [facility], 2 caps Oral Daily Start Date: 07/26/15 Status: Ordered loperamide 2 mg, Oral, Daily, as needed for diarrhea, 0 Refill(s) Start Date: 12/27/15 Status: Ordered metFORMIN 500 mg oral tablet See Instructions, TAKE 2 TABLETS TWICE A DAY, # 360 tabs, 2 Refill(s), Pharmacy : [facility], TAKE 2 TABLETS TWICE A DAY Start Date: 10/28/15 Status: Ordered Metoprolol Tartrate 25 mg oral tablet See Instructions, TAKE 1 TAB IN THE AM AND 1 TAB IN THE PM, # 180 tabs, 1 Refill (s), Pharmacy: [facility], TAKE 1 TAB IN THE AM AND 1 TAB IN THE PM Start Date: 10/28/15 Status: Ordered multivitamin 1 tabs, Oral, Daily, 0 Refill(s) Start Date: 03/09/14 Status: Ordered [place] 5 mg-325 mg oral tablet 2 tabs, Oral, Bedtime (once a day), as needed for pain, [facility], # 180 tabs, 0 Refill(s) Start Date: 10/28/15 Stop Date: 01/26/16 Status: Ordered pioglitazone 15 mg oral tablet See Instructions, TAKE 1 TABLET DAILY, # 90 tabs, 1 Refill(s), eRx: [facility], TAKE 1 TABLET DAILY Start Date: 11/18/15 Status: Ordered Tussin 200 mg, Oral, q4hr, [...] salpingoectomy, RT 1984 ovarian biopsy Sinus surgery 1983 Tubal ligation Social History Social History Type [...] stressful on the back to sit or 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 Do not sit, drive, or athletic training internship one place for more than 30 minutes [...] a pillow under your knees. Only take hnau-dzl-snxquhv or prescription medicines as directed by your caregiver. Kjer-qno-oywzehh medicines to reduce pain and inflammation are [...] Released: 09/20/2006 Document Revised: 03/21/2013 Document Reviewed: ExitCare Patient Information 2015 [facility], [facility]. This information is not intended to replace [...] realistic goals. Your health care provider or critical care educator can help you make an activity [...] 02/04/2015 Document Reviewed: ExitCare Patient Information 2015 [employer]. This information is not intended to replace [...] Orders Ordered Office Visit Level 4 Est 05886: Prescriptions Prescribed irbesartan 150 mg oral tablet: 150 mg=1 tabs, Oral, Daily, 90 tabs, 3 Refill(s). Dx/Order Association Plan: Diagnosis: Acute URI Comment: Ordered: Office Visit Level 4 Est 26014; 06/27/15 10:23:00 CDT, Controlled type 2 diabetes mellitus without complication | Benign essential hypertension | Combined hyperlipidemia | Hand tendinitis | Acute URI Diagnosis: Benign essential hypertension Comment: Ordered: Office Visit Level 4 Est 22084; 06/27/15 10:23:00 CDT, Controlled type 2 diabetes mellitus without complication | Benign essential hypertension | Combined hyperlipidemia | Hand tendinitis | Acute URI Diagnosis: Chronic low back pain Comment: Diagnosis: Combined hyperlipidemia Comment: Ordered: Office Visit Level 4 Est 94487; 06/27/15 10:23:00 CDT, Controlled type 2 diabetes mellitus without complication | Benign essential hypertension | Combined hyperlipidemia | Hand tendinitis | Acute URI Diagnosis: Controlled type 2 diabetes mellitus without complication Comment: Ordered: Office Visit Level 4 Est 45511; 06/27/15 10:23:00 CDT, Controlled type 2 diabetes mellitus without complication | Benign essential hypertension | Combined hyperlipidemia | Hand tendinitis | Acute URI Diagnosis: GERD (gastroesophageal reflux disease) Comment: Diagnosis: Hand tendinitis Comment: Ordered: Office Visit Level 4 Est 10339; 06/27/15 10:23:00 CDT, Controlled type 2 diabetes [...]
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
--- OUTSIDE RECORDS SUMMARY | 2017-01-19 20:16 | XMS REPORT | Referral Summary ---
Author Author [facility] [place], Family Medicine Organization [facility] Address Unknown Phone Unavailable Care Team Providers Care [employer] Supervisor Name Role Phone Heidy Carrero Primary Care Physician [phone] Encounter VC Date(s): 03/28/15 - 03/28/15 [facility] [place], [address] [place] [id number] Discharge Diagnosis: Depression Discharge Disposition: 01-Home or [...] Daily, # 90 tabs, 3 Refill(s), Pharmacy: [facility], 1 tabs Oral Daily Start Date: 05/29/14 Status: Ordered ACTOS 15 MG ORAL TABLET See Instructions, 1 TABS ORAL DAILY, # 90 tabs, 1 Refill(s), [facility]: [facility], 1 TABS ORAL DAILY Start Date: 04/08/15 Status: Ordered allopurinol 100 mg oral tablet 200 mg 2 tabs, Oral, Daily, # 270 tabs, 1 Refill(s), [facility]: [facility], TAKE 3 TABLETS BY MOUTH EVERY DAY Start Date: 04/15/15 Status: Ordered Avalide 300 mg-12.5 mg oral tablet 0.5 tabs, Oral, Daily, # 45 tabs, 3 Refill(s), Pharmacy: [facility] Start Date: 07/22/15 Stop Date: [...] # 300 Each, 3 Refill(s), [facility]acy: [facility], Prescision Xtra Blood Glucose strips--Use [...] # 180 caps, 2 Refill(s), Pharmacy: [facility], 2 caps Oral Daily Start [...] 0 Refill(s) Start Date: 03/09/14 Status: Ordered [place] 5 mg-325 mg oral tablet 2 tabs, [...] serious side effect. FOR MORE INFORMATION National [place] on Mental Illness: www.linette.org National [place] of Mental Health: www.nimh.nih.gov Document Released: 09/17/2001 Document Revised: 03/21/2013 Document Reviewed: ExitCare Patient Information 2014 [employer]. No follow up information was provided. Extracted [...] Orders Ordered Office Visit Level 5 Est 38796: Wrist hand orthosis, wrist extension control cock-up, non molded, L3908: Future (On Hold) Albumin/Creatinine Ratio, Urine: CMP: Hgb A1c: Triglycerides: . Dx/Order Association Plan: Diagnosis: Benign essential hypertension Comment: Ordered: Office Visit Level 5 Est 11696; 03/28/15 10:33:00 CDT, Benign essential hypertension | Osteoarthritis of wrist | Controlled type 2 diabetes mellitus without complication | Combined hyperlipidemia | Morbid obesity Diagnosis: Combined hyperlipidemia Comment: Ordered: Office Visit Level 5 Est 34746; 03/28/15 10:33:00 CDT, Benign essential hypertension | Osteoarthritis of wrist | Controlled type 2 diabetes mellitus without complication | Combined hyperlipidemia | Morbid obesity Diagnosis: Controlled type 2 diabetes mellitus without complication Comment: Ordered: Office Visit Level 5 Est 78547; 03/28/15 10:33:00 CDT, Benign essential hypertension | Osteoarthritis of wrist | Controlled type 2 diabetes mellitus without complication | Combined hyperlipidemia | Morbid obesity Diagnosis: Depression Comment: Ordered: Office Visit Level 5 Est 98696; 03/28/15 10:33:00 CDT, Benign essential hypertension | Osteoarthritis of wrist | Controlled type 2 diabetes mellitus without complication | Combined hyperlipidemia | Morbid obesity Diagnosis: Morbid obesity Comment: Ordered: Office Visit Level 5 Est 53485; 03/28/15 10:33:00 CDT, Benign essential hypertension | Osteoarthritis of wrist | Controlled type 2 diabetes mellitus without complication | Combined hyperlipidemia | Morbid obesity Diagnosis: Osteoarthritis of wrist Comment: Ordered: Wrist hand orthosis, wrist extension control cock-up, non molded, L3908; 03/28/15 13:43:00 CDT, Osteoarthritis of wrist, 1 Office Visit Level 5 Est 23048; 03/28/15 10:33:00 CDT, Benign essential hypertension | [...]
--- OUTSIDE RECORDS SUMMARY | 2017-01-19 20:16 | XMS REPORT | Referral Summary ---
Author Author [facility], [facility] Medicine Organization [facility] Address Unknown Phone Unavailable Care Team Providers Care Heavy Equipment Supervisor Name Role Phone Heidy Carrero Primary Care Physician [phone] Encounter VC Date(s): 07/22/15 - 07/22/15 [facility] [place], [address] [place] [id number] Discharge Disposition: 01-Home or Self Care Attending Physician: James Carrero MD Admitting Physician: James Carrero MD Vital Signs Most recent to 1 oldest [Reference Range]: Peripheral Pulse 62 bpm Rate [60-100 bpm] (07/22/15 1:32 PM) Blood Pressure 122/78 mmHg [90-140/60-90 mmHg] (07/22/15 1:32 PM) SpO2 98 % (07/22/15 1:32 PM) Problem List Condition Effective Dates Status Health [...] EVERY DAY Start Date: 01/13/16 Status: Ordered Avalide 300 mg-12.5 mg oral tablet 0.5 tabs, Oral, Daily, # 45 tabs, 0 Refill(s), [facility]: [facility] Start Date: 01/22/16 Status: Ordered Colace 100 mg oral capsule 200 mg 2 caps, Oral, Daily, # 180 caps, 0 Refill(s) Start Date: 01/13/16 Status: Ordered Crestor 5 mg oral tablet 5 mg 1 tabs, Oral, q2Days, # 45 tabs, 0 Refill(s), TAKE 1 TABLET EVERY OTHER DAY AT BEDTIME Start Date: 01/13/16 Status: Ordered Dramamine 150 mg, Oral, Bedtime (once a day), 3 of the 50 mg tabs, 0 Refill(s) Start Date: 03/09/14 Status: Ordered Excedrin 2 tabs, Oral, q6hr, as needed for headaches, 0 Refill(s) Start Date: 12/27/15 Status: Ordered furosemide 20 mg oral tablet 20 mg 1 tabs, Oral, Daily, # 90 tabs, 0 Refill(s), TAKE 2 [...] Instructions, # 300 Each, 3 Refill(s), Pharmacy: [facility], Prescision Xtra Blood Glucose strips--Use [...] 3 month... Start Date: 10/14/15 Status: Ordered hydrochlorothiazide 12.5 mg oral tablet 6.25 mg 0.5 tabs, Oral, Daily, # 45 tabs, 3 Refill(s), [facility]: [facility], 0.5 tabs Oral Daily,x90 days Start Date: 01/23/16 Stop Date: 01/17/17 Status: Ordered ibuprofen 4 tabs, Oral, TID, as needed for back pain, 0 Refill(s) Start Date: 03/09/14 Status: Ordered Januvia 100 mg oral tablet 100 mg 1 tabs, Oral, Daily, # 90 tabs, 0 Refill(s) Start Date: 01/13/16 Status: Ordered loperamide 2 mg, Oral, Daily, as needed for diarrhea, 0 Refill(s) Start Date: 12/27/15 Status: Ordered metFORMIN 500 mg oral tablet 1,000 mg 2 tabs, Oral, BID, # 360 tabs, 0 Refill(s), TAKE 2 TABLETS TWICE A DAY Start Date: 01/13/16 Status: Ordered Metoprolol Tartrate 25 mg oral tablet 25 mg 1 tabs, Oral, BID, # 180 tabs, 0 Refill(s), TAKE 1 TAB IN THE AM AND 1 TAB IN THE PM Start Date: 01/13/16 Status: Ordered multivitamin 1 tabs, Oral, Daily, 0 Refill(s) Start Date: 03/09/14 Status: Ordered [place] 5 mg-325 mg oral tablet 2 tabs, Oral, Bedtime (once a day), as needed for pain, [facility], # 180 tabs, 0 Refill(s) Start Date: 10/28/15 Stop Date: 01/26/16 Status: Ordered pantoprazole 40 mg oral delayed release tablet 40 mg 1 tabs, Oral, Daily, # 90 tabs, 3 Refill(s), [facility]: [facility] , 1 tabs Oral Daily Start Date: 01/30/16 Status: Ordered pioglitazone 15 mg oral tablet [...] Patient Education Author: James Carrero MD Date: Family Medicine Diabetes and Foot Care Diabetes may cause you to have problems because of poor blood supply ( circulation) to your feet and legs. This may cause the skin on your feet to become thinner, break easier, and heal more slowly. Your skin may become dry, and the skin may peel and crack. You may also have nerve damage in your legs and feet causing decreased feeling in them. You may not notice minor injuries to your feet that could lead to infections or more serious problems. Taking care of your feet is one of the most important things you can do for yourself. HOME CARE INSTRUCTIONS Wear shoes at all times, even in the house. Do not go barefoot. Bare feet are easily injured. Check your feet daily for blisters, cuts, and redness. If you cannot see the bottom of your feet, use a mirror or ask someone for help. Wash your feet with warm water (do not use hot water) and mild soap. Then pat your feet and the areas between your toes until they are completely dry. Do not soak your feet as this can dry your skin. Apply a moisturizing lotion or petroleum jelly (that does not contain alcohol and is unscented) to the skin on your feet and to dry, brittle toenails. Do not apply lotion between your toes. Trim your toenails straight across. Do not dig under them or around the cuticle. File the edges of your nails with an emery board or nail file. Do not cut corns or calluses or try to remove them with medicine. Wear clean socks or stockings every day. Make sure they are not too tight. Do not wear knee-high stockings since they may decrease blood flow to your legs. Wear shoes that fit properly and have enough cushioning. To break in new shoes, wear them for just a few hours a day. This prevents you from injuring your feet. Always look in your shoes before you put them on to be sure there are no objects inside. Do not cross your legs. This may decrease the blood flow to your feet. If you find a minor scrape, cut, or break in the skin on your feet, keep it and the skin around it clean and dry. These areas may be cleansed with mild soap and water. Do not cleanse the area with peroxide, alcohol, or iodine. When you remove an adhesive bandage, be sure not to damage the skin around it. If you have a wound, look at it several times a day to make sure it is healing. Do not use heating pads or hot water bottles. They may burn your skin. If you have lost feeling in your feet or legs, you may not know it is happening until it is too late. Make sure your health care provider performs a complete foot exam at least annually or more often if you have foot problems. Report any cuts, sores, or bruises to your health care provider immediately. SEEK MEDICAL CARE IF: You have an injury that is not healing. You have cuts or breaks in the skin. You have an ingrown nail. You notice redness on your legs or feet. You feel burning or tingling in your legs or feet. You have pain or cramps in your legs and feet. Your legs or feet are numb. Your feet always feel cold. SEEK IMMEDIATE MEDICAL CARE IF: There is increasing redness, swelling, or pain in or around a wound. There is a red line that goes up your leg. Pus is coming from a wound. You develop a fever or as directed by your health care provider. You notice a bad smell coming from an ulcer or wound. Document Released: 09/17/2001 Document Revised: 05/23/2014 Document Reviewed: [facility] Patient Information 2015 [facility]. This information is not intended to replace advice given to you by your health care provider. Make sure you discuss any questions you have with your health care provider. Headaches, Frequently Asked Questions MIGRAINE HEADACHES Q: What is migraine? What causes it? How can I treat it? A: Generally, migraine headaches begin as a dull ache. Then they develop into a constant, throbbing, and pulsating pain. You may experience pain at the temples. You may experience pain at the front or back of one or both sides of the head. The pain is usually accompanied by a combination of: Nausea. Vomiting. Sensitivity to light and noise. Some people (about 15%) experience an aura (see below) before an attack. The cause of migraine is believed to be chemical reactions in the brain. Treatment for migraine may include ekki-fln-xgqunyi or prescription medications. It may also include self-help techniques. These include relaxation training and biofeedback. Q: What is an aura? A: About 15% of people with migraine get an "aura". This is a sign of neurological symptoms that occur before a migraine headache. You may see wavy or jagged lines, dots, or flashing lights. You might experience tunnel vision or blind spots in one or both eyes. The aura can include visual or auditory hallucinations (something imagined). It may include disruptions in smell (such as strange odors), taste or touch. Other symptoms include: Numbness. A "pins and needles" sensation. Difficulty in recalling or speaking the correct word. These neurological events may last as long as 60 minutes. These symptoms will fade as the headache begins. Q: What is a trigger? A: Certain physical or environmental factors can lead to or "trigger" a migraine. These include: Foods. Hormonal changes. Weather. Stress. It is important to remember that triggers are different for everyone. To help prevent migraine attacks, you need to figure out which triggers affect you. Keep a headache diary. This is a good way to track triggers. The diary will help you talk to your healthcare professional about your condition. Q: Does weather affect migraines? A: Bright sunshine, hot, humid conditions, and drastic changes in barometric pressure may lead to, or "trigger," a migraine attack in some people. But studies have shown that weather does not act as a trigger for everyone with migraines. Q: What is the link between migraine and hormones? A: Hormones start and regulate many of your body's functions. Hormones keep your body in balance within a constantly changing environment. The levels of hormones in your body are unbalanced at times. Examples are during menstruation , , or menopause. That can lead to a migraine attack. In fact, about three quarters of all women with migraine report that their attacks are related to the menstrual cycle. Q: Is there an increased risk of stroke for migraine sufferers? A: The likelihood of a migraine attack causing a stroke is very remote. That is not to say that migraine sufferers cannot have a stroke associated with their migraines. In persons under age 40, the most common associated factor for stroke is migraine headache. But over the course of a person's normal life span , the occurrence of migraine headache may actually be associated with a reduced risk of dying from cerebrovascular disease due to stroke. Q: What are acute medications for migraine? A: Acute medications are used to treat the pain of the headache after it has started. Examples tngo-ctr-gqzmlbw medications, NSAIDs, ergots, and triptans. Q: What are the triptans? A: Triptans are the newest class of abortive medications. They are specifically targeted to treat migraine. Triptans are vasoconstrictors. They moderate some chemical reactions in the brain. The triptans work on receptors in your brain. Triptans help to restore the balance of a neurotransmitter called serotonin. Fluctuations in levels of serotonin are thought to be a main cause of migraine. Q: Are mzxw-rnr-waqkdoz medications for migraine effective? A: Kjms-ifg-fiokade, or "OTC," medications may be effective in relieving mild to moderate pain and associated symptoms of migraine. But you should see your caregiver before beginning any treatment regimen for migraine. Q: What are preventive medications for migraine? A: Preventive medications for migraine are sometimes referred to as "prophylactic" treatments. They are used to reduce the frequency, severity, and length of migraine attacks. Examples of preventive medications include antiepileptic medications, antidepressants, beta-blockers, calcium channel blockers, and NSAIDs (nonsteroidal anti-inflammatory drugs). Q: Why are anticonvulsants used to treat migraine? A: During the past few years, there has been an increased interest in antiepileptic drugs for the prevention of migraine. They are sometimes referred to as "anticonvulsants". Both epilepsy and migraine may be caused by similar reactions in the brain. Q: Why are antidepressants used to treat migraine? A: Antidepressants are typically used to treat people with depression. They may reduce migraine frequency by regulating chemical levels, such as serotonin, in the brain. Q: What alternative therapies are used to treat migraine? A: The term "alternative therapies" is often used to describe treatments considered outside the scope of conventional Western medicine. Examples of alternative therapy include acupuncture, acupressure, and yoga. Another common alternative treatment is herbal therapy. Some herbs are believed to relieve headache pain. Always discuss alternative therapies with your caregiver before proceeding. Some herbal products contain arsenic and other toxins. TENSION HEADACHES Q: What is a tension-type headache? What causes it? How can I treat it? A: Tension-type headaches occur randomly. They are often the result of temporary stress, anxiety, fatigue, or anger. Symptoms include soreness in your temples, a tightening band-like sensation around your head (a "vice-like" ache) . Symptoms can also include a pulling feeling, pressure sensations, and avani head and neck muscles. The headache begins in your forehead, temples , or the back of your head and neck. Treatment for tension-type headache may include yfdm-dvx-hmearun or prescription medications. Treatment may also include self-help techniques such as relaxation training and biofeedback. CLUSTER HEADACHES Q: What is a cluster headache? What causes it? How can I treat it? A: Cluster headache gets its name because the attacks come in groups. The pain arrives with little, if any, warning. It is usually on one side of the head. A tearing or bloodshot eye and a runny nose on the same side of the headache may also accompany the pain. Cluster headaches are believed to be caused by chemical reactions in the brain. They have been described as the most severe and intense of any headache type. Treatment for cluster headache includes prescription medication and oxygen. SINUS HEADACHES Q: What is a sinus headache? What causes it? How can I treat it? A: When a cavity in the bones of the face and skull (a sinus) becomes inflamed, the inflammation will cause localized pain. This condition is usually the result of an allergic reaction, a tumor, or an infection. If your headache is caused by a sinus blockage, such as an infection, you will probably have a fever. An x-ray will confirm a sinus blockage. Your caregiver's treatment might include antibiotics for the infection, as well as antihistamines or decongestants. REBOUND HEADACHES Q: What is a rebound headache? What causes it? How can I treat it? A: A pattern of taking acute headache medications too often can lead to a condition known as "rebound headache." A pattern of taking too much headache medication includes taking it more than 2 days per week or in excessive amounts. That means more than the label or a caregiver advises. With rebound headaches, your medications not only stop relieving pain, they actually begin to cause headaches. Doctors treat rebound headache by tapering the medication that is being overused. Sometimes your caregiver will gradually substitute a different type of treatment or medication. Stopping may be a challenge. Regularly overusing a medication increases the potential for serious side effects. Consult a caregiver if you regularly use headache medications more than 2 days per week or more than the label advises. ADDITIONAL QUESTIONS AND ANSWERS Q: What is biofeedback? A: Biofeedback is a self-help treatment. Biofeedback uses special equipment to monitor your body's involuntary physical responses. Biofeedback monitors: Breathing. Pulse. Heart rate. Temperature. Muscle tension. Brain activity. Biofeedback helps you refine and perfect your relaxation exercises. You learn to control the physical responses that are related to stress. Once the technique has been mastered, you do not need the equipment any more. Q: Are headaches hereditary? A: Four out of five (80%) of people that suffer report a family history of migraine. Scientists are not sure if this is genetic or a family predisposition. Despite the uncertainty, a child has a 50% chance of having migraine if one parent suffers. The child has a 75% chance if both parents suffer. Q: Can children get headaches? A: By the time they reach high school, most young people have experienced some type of headache. Many safe and effective approaches or medications can prevent a headache from occurring or stop it after it has begun. Q: What type of doctor should I see to diagnose and treat my headache? A: Start with your primary caregiver. Discuss his or her experience and approach to headaches. Discuss methods of classification, diagnosis, and treatment. Your caregiver may decide to recommend you to a headache specialist, depending upon your symptoms or other physical conditions. Having diabetes, allergies, etc., may require a more comprehensive and inclusive approach to your headache. The National Headache Foundation will provide, upon request, a list of NHF physician members in your state. Document Released: 12/10/2004 Document Revised: 12/12/2012 Document Reviewed: ExitCare Patient Information 2015 [employer]. This information is not intended to replace advice given to you by your health care provider. Make sure you discuss any questions you have with your health care provider. No follow up information was provided. Extracted from: Title: left subconjunctival Author: James Carrero MD Date: 07/22/15 hemorrhage, HTN, DM, Hypercholesterolemia Impression and Plan Diagnosis Subconjunctival hemorrhage (JTD77-NI H11.32, Working, Medical). Benign essential hypertension (OMF19-FT I10, Working, Medical). Headache ([id number] R51, Working, Medical). Controlled type 2 diabetes mellitus without complication (VYA14-LZ E11.9, Working, Medical). Combined hyperlipidemia (RPR80-IT E78.2, Working, Medical). Plan: 1) Reassurance about the eye, which should resolve on its own. 2) Increase the BP med to 1/2 tab of Avalide 300/12.5 daily, as before. Stop the Avapro. 3) See me in 1 month and as needed.. Orders Orders (Selected) Outpatient Orders Ordered Office Visit Level 4 Est 78711: Future (On Hold) Albumin/Creatinine Ratio, Urine: CBC w/ Differential: CMP: Hgb A1c: Triglycerides: Prescriptions Prescribed Avalide 300 mg-12.5 mg oral tablet: 0.5 tabs, Oral, Daily, for 90 days, 45 tabs , 3 Refill(s) [place] 5 mg-325 mg oral tablet: 2 tabs, Oral, Bedtime (once a day), for 90 days, [facility], PRN: as needed for pain, 180 tabs, 0 Refill(s). Dx/Order Association Plan: Diagnosis: Benign essential hypertension Comment: Ordered: Office Visit Level 4 Est 57335; 07/22/15 18:02:00 CDT, Subconjunctival hemorrhage | Benign essential hypertension | Headache | Controlled type 2 diabetes mellitus without complication Diagnosis: Combined hyperlipidemia Comment: Diagnosis: Controlled type 2 diabetes mellitus without complication Comment: Ordered: Office Visit Level 4 Est 65701; 07/22/15 18:02:00 CDT, Subconjunctival hemorrhage | Benign essential hypertension | Headache | Controlled type 2 diabetes mellitus without complication Diagnosis: Headache Comment: Ordered: Office Visit Level 4 Est 06676; 07/22/15 18:02:00 CDT, Subconjunctival hemorrhage | Benign essential hypertension | Headache | Controlled type 2 diabetes mellitus without complication Diagnosis: Subconjunctival hemorrhage Comment: Ordered: Office Visit Level 4 Est 71646; 07/22/15 18:02:00 CDT, Subconjunctival hemorrhage | Benign essential hypertension | Headache | Controlled type 2 diabetes mellitus without complication Additional Orders: Comment: Discontinued: Avalide 300 mg-12.5 mg oral tablet,0.5 tabs, Oral, Daily, 0 Refill(s) Ordered: Avalide 300 mg-12.5 mg oral tablet,0.5 tabs, Oral, Daily, # 45 tabs, 3 Refill(s), [facility] Ordered: [place] 5 mg-325 mg oral tablet,2 tabs, Oral, Bedtime (once a day), as needed for pain, [facility], # 180 tabs, 0 Refill(s) End of Orders .
--- OUTSIDE RECORDS SUMMARY | 2017-01-19 20:16 | XMS REPORT | Referral Summary ---
Author Author [facility], Family Medicine Organization [facility] Address Unknown Phone Unavailable Care Team Providers Care Meat Sales And Storage Manager Name Role Phone Heidy Carrero Primary Care Physician [phone] Encounter VC Date(s): 09/10/16 - 09/10/16 [facility] [place], Family [address] [place] [address]- Discharge Diagnosis: Well woman exam with routine gynecological exam Discharge Disposition: 01-Home or Self Care Attending Physician: Virginie Gilbert APRN Admitting Physician: Virginie Gilbert APRN Vital Signs Most recent to 1 oldest [Reference Range]: Temperature Oral 36.7 degC [35.8-37.3 degC] (09/10/16 8:42 AM) Peripheral Pulse 70 bpm Rate [60-100 bpm] (09/10/16 8:42 AM) Blood Pressure 118/86 mmHg [90-140/60-90 mmHg] (09/10/16 8:42 AM) SpO2 96 % (09/10/16 8:42 AM) Problem List Condition Effective Dates Status [...] Oral, Daily, # 90 tabs, 0 Refill(s), Pharmacy: [facility] Start Date: 07/08/16 Status: Ordered loperamide 2 mg, Oral, Daily, [...] 1977 Assessment and Plan Extracted from: Title: Office Visit Note Author: Virginie Gilbert APRN Date: 09/10/16 Assessment/Plan Well woman exam with routine gynecological exam Await Pap. Reviewed and discussed screening mammogram findings which were normal. Annual exam and less she has problems sooner.
--- OUTSIDE RECORDS SUMMARY | 2017-01-19 20:17 | XMS REPORT | Referral Summary ---
Author Author [facility], Family Medicine Organization [facility] Address Unknown Phone Unavailable Care Team Providers Care Sales Agent Financial Report Service Name Role Phone Heidy Carrero Primary Care Physician [phone] Encounter Date(s): 08/13/16 - 08/13/16 [facility] [place], [address] [place] [address]- Discharge Diagnosis: Maxillary sinusitis Discharge Diagnosis: Combined hyperlipidemia Discharge Diagnosis: Chronic low back pain Discharge Diagnosis: Viral pharyngitis Discharge Diagnosis: Viral bronchitis Discharge Diagnosis: Controlled type 2 diabetes mellitus without complication Discharge Diagnosis: Anxiety disorder Discharge Disposition: 01-Home or Self Care Attending Physician: James Carrero MD Admitting Physician: James Carrero MD Vital Signs Most recent to 1 oldest [Reference Range]: Temperature Tympanic 36.3 degC [36.6-38.1 degC] *LOW* (08/13/16 12:55 PM) Peripheral Pulse 76 bpm Rate [60-100 bpm] (08/13/16 12:55 PM) Respiratory Rate 6 br/min [14-20 br/min] *LOW* (08/13/16 12:55 PM) Blood Pressure 106/66 mmHg [90-140/60-90 mmHg] (08/13/16 12:55 PM) Problem List Condition Effective Dates Status [...] # 45 tabs, 3 Refill(s), Pharmacy: [facility], 0.5 tabs Oral Daily,x90 days Start Date: [...] [facility] Start Date: 07/08/16 Status: Ordered Jardiance 10 mg oral tablet [...] Patient Education Author: James Carrero MD Date: 07/19 Allergy Sinusitis, Adult Sinusitis is redness, soreness, and inflammation of the paranasal sinuses. Paranasal sinuses are air pockets within the bones of your face. They are located beneath your eyes, in the middle of your forehead, and above your eyes. In healthy paranasal sinuses, mucus is able to drain out, and air is able to circulate through them by way of your nose. However, when your paranasal sinuses are inflamed, mucus and air can become trapped. This can allow bacteria and other germs to grow and cause infection. Sinusitis can develop quickly and last only a short time (acute) or continue over a long period (chronic). Sinusitis that lasts for more than 12 weeks is considered chronic. CAUSES Causes of sinusitis include: Allergies. Structural abnormalities, such as displacement of the cartilage that separates your nostrils (deviated septum), which can decrease the air flow through your nose and sinuses and affect sinus drainage. Functional abnormalities, such as when the small hairs (cilia) that line your sinuses and help remove mucus do not work properly or are not present. SIGNS AND SYMPTOMS Symptoms of acute and chronic sinusitis are the same. The primary symptoms are pain and pressure around the affected sinuses. Other symptoms include: Upper toothache. Earache. Headache. Bad breath. Decreased sense of smell and taste. A cough, which worsens when you are lying flat. Fatigue. Fever. Thick drainage from your nose, which often is green and may contain pus ( purulent). Swelling and warmth over the affected sinuses. DIAGNOSIS Your health care provider will perform a physical exam. During your exam, your health care provider may perform any of the following to help determine if you have acute sinusitis or chronic sinusitis: Look in your nose for signs of abnormal growths in your nostrils (nasal polyps). Tap over the affected sinus to check for signs of infection. View the inside of your sinuses using an imaging device that has a light attached (endoscope). If your health care provider suspects that you have chronic sinusitis, one or more of the following tests may be recommended: Allergy tests. Nasal culture. A sample of mucus is taken from your nose, sent to a lab, and screened for bacteria. Nasal cytology. A sample of mucus is taken from your nose and examined by your health care provider to determine if your sinusitis is related to an allergy. TREATMENT Most cases of acute sinusitis are related to a viral infection and will resolve on their own within 10 days. Sometimes, medicines are prescribed to help relieve symptoms of both acute and chronic sinusitis. These may include pain medicines, decongestants, nasal steroid sprays, or saline sprays. However, for sinusitis related to a bacterial infection, your health care provider will prescribe antibiotic medicines. These are medicines that will help kill the bacteria causing the infection. Rarely, sinusitis is caused by a fungal infection. In these cases, your health care provider will prescribe antifungal medicine. For some cases of chronic sinusitis, surgery is needed. Generally, these are cases in which sinusitis recurs more than 3 times per year, despite other treatments. HOME CARE INSTRUCTIONS Drink plenty of water. Water helps thin the mucus so your sinuses can drain more easily. Use a humidifier. Inhale steam 34 times a day (for example, sit in the bathroom with the shower running). Apply a warm, moist washcloth to your face 34 times a day, or as directed by your health care provider. Use saline nasal sprays to help moisten and clean your sinuses. Take medicines only as directed by your health care provider. If you were prescribed either an antibiotic or antifungal medicine, finish it all even if you start to feel better. SEEK IMMEDIATE MEDICAL CARE IF: You have increasing pain or severe headaches. You have nausea, vomiting, or drowsiness. You have swelling around your face. You have vision problems. You have a stiff neck. You have difficulty breathing. This information is not intended to replace advice given to you by your health care provider. Make sure you discuss any questions you have with your health care provider. Document Released: 09/20/2006 Document Revised: 10/11/2015 Document Reviewed: [employer] Interactive Patient Education 2016 [employer] Sore Throat A sore throat is pain, burning, irritation, or scratchiness of the throat. There is often pain or tenderness when swallowing or talking. A sore throat may be accompanied by other symptoms, such as coughing, sneezing, fever, and swollen neck glands. A sore throat is often the first sign of another sickness, such as a cold, flu, strep throat, or mononucleosis (commonly known as mono). Most sore throats go away without medical treatment. CAUSES The most common causes of a sore throat include: A viral infection, such as a cold, flu, or mono. A bacterial infection, such as strep throat, tonsillitis, or whooping cough. Seasonal allergies. Dryness in the air. Irritants, such as smoke or pollution. Gastroesophageal reflux disease (GERD). HOME CARE INSTRUCTIONS Only take [id number] medicines as directed by your caregiver. Drink enough fluids to keep your urine clear or pale yellow. Rest as needed. Try using throat sprays, lozenges, or sucking on hard candy to ease any pain (if older than 4 years or as directed). Sip warm liquids, such as broth, herbal tea, or warm water with honey to relieve pain temporarily. You may also eat or drink cold or frozen liquids such as frozen ice pops. Gargle with salt water (mix 1 tsp salt with 8 oz of water). Do not smoke and avoid secondhand smoke. Put a cool-mist humidifier in your bedroom at night to moisten the air. You can also turn on a hot shower and sit in the bathroom with the door closed for 510 minutes. SEEK IMMEDIATE MEDICAL CARE IF: You have difficulty breathing. You are unable to swallow fluids, soft foods, or your saliva. You have increased swelling in the throat. Your sore throat does not get better in 7 days. You have nausea and vomiting. You have a fever or persistent symptoms for more than 23 days. You have a fever and your symptoms suddenly get worse. MAKE SURE YOU: Understand these instructions. Will watch your condition. Will get help right away if you are not doing well or get worse. This information is not intended to replace advice given to you by your health care provider. Make sure you discuss any questions you have with your health care provider. Document Released: 10/28/2005 Document Revised: 10/11/2015 Document Reviewed: [employer] Interactive Patient Education 2016 [employer]. Emergency Medicine Acute Bronchitis Bronchitis is inflammation [...] care provider. Document Released: 10/28/2005 Document Revised: 10/11/2015 Document Reviewed: [employer] Interactive Patient Education 2016 [employer] No follow up information was provided. Extracted from: Title: several problems Author: James Carrero MD Date: 08/13/16 Impression and Plan Diagnosis Anxiety disorder (JKU93-TX F41.1, Discharge, Medical). Chronic low back pain (RME06-DY M54.5, Discharge, Medical). Combined hyperlipidemia (BRK82-YO E78.2, Discharge, Medical). Controlled type 2 diabetes mellitus without complication (WBW39-KR E11.9, Discharge, Medical). Maxillary sinusitis (VJC47-SA J32.0, Discharge, Medical). Viral bronchitis (SBS66-TW J20.8, Discharge, Medical). Viral pharyngitis (GZR71-LO J02.9, Discharge, Medical). Plan: 1) Get plenty of rest, in order to get over this. 2) Take your Avapro and HCTZ only if your BP exceeds 130 systolic or 89 diastolic, especially while you're sick. 3) May reduce Metoprolol to once a day, if needed. 4) Continue your other meds as before. 5) Keep your routine appointment and as needed.. Orders Orders (Selected) Outpatient Orders Ordered Office Visit Level 4 Est 68537: Future (On Hold) Albumin/Creatinine Ratio, Urine: CMP: Hgb A1c: Triglycerides: Uric Acid: . Dx/Order Association Plan: Diagnosis: Anxiety disorder Comment: Ordered: Office Visit Level 4 Est 80236; 08/13/16 13:54:00 DATA PROCESSING SYSTEMS PROJECT PLANNER, Maxillary sinusitis | Viral bronchitis | Viral pharyngitis | Controlled type 2 diabetes mellitus without complication | Combined hyperlipidemia | Chronic low back pain | Anxiety disorder Diagnosis: Chronic low back pain Comment: Ordered: Office Visit Level 4 Est [id number]; 08/13/16 13:54:00 DATA PROCESSING SYSTEMS PROJECT PLANNER, Maxillary sinusitis | Viral bronchitis | Viral pharyngitis | Controlled type 2 diabetes mellitus without complication | Combined hyperlipidemia | Chronic low back pain | Anxiety disorder Diagnosis: Combined hyperlipidemia Comment: Ordered: Office Visit Level 4 Est [id number]; 08/13/16 13:54:00 DATA PROCESSING SYSTEMS PROJECT PLANNER, Maxillary sinusitis | Viral bronchitis | Viral pharyngitis | Controlled type 2 diabetes mellitus without complication | Combined hyperlipidemia | Chronic low back pain | Anxiety disorder Diagnosis: Controlled type 2 diabetes mellitus without complication Comment: Ordered: Office Visit Level 4 Est [id number]; 08/13/16 13:54:00 DATA PROCESSING SYSTEMS PROJECT PLANNER, Maxillary sinusitis | Viral bronchitis | Viral pharyngitis | Controlled type 2 diabetes mellitus without complication | Combined hyperlipidemia | Chronic low back pain | Anxiety disorder Diagnosis: Maxillary sinusitis Comment: Ordered: Office Visit Level 4 Est [id number]; 08/13/16 13:54:00 DATA PROCESSING SYSTEMS PROJECT PLANNER, Maxillary sinusitis | Viral bronchitis | Viral pharyngitis | Controlled type 2 diabetes mellitus without complication | Combined hyperlipidemia | Chronic low back pain | Anxiety disorder Diagnosis: Viral bronchitis Comment: Ordered: Office Visit Level 4 Est [id number]; 08/13/16 13:54:00 DATA PROCESSING SYSTEMS PROJECT PLANNER, Maxillary sinusitis | Viral bronchitis | Viral pharyngitis | Controlled type 2 diabetes mellitus without complication | Combined hyperlipidemia | Chronic low back pain | Anxiety disorder Diagnosis: Viral pharyngitis Comment: Ordered: Office Visit Level 4 Est [id number]; 08/13/16 13:54:00 DATA PROCESSING SYSTEMS PROJECT PLANNER, Maxillary sinusitis | Viral bronchitis | Viral pharyngitis | Controlled type 2 diabetes mellitus without complication | Combined hyperlipidemia | Chronic low back pain | Anxiety disorder End of Orders ."
--- OUTSIDE RECORDS SUMMARY | 2017-01-19 20:17 | XMS REPORT | Continuity of Care Document ---
Author Author Giovanna STONE, [facility] Address [address] [facility] [place] [address] Phone Care Team Providers Care Concrete Tile Machine Operator Name Role Phone James Carrero PP Unavailable Payers Payer name Insurance type Covered republican ID Authorization(s) Unknown Problems Condition Effective Dates (start - stop) Clinical Status Diabetes type 2, controlled - *Chronic Hypertension - *Chronic Gout - *Controlled Hypercholesterolemia - *Chronic Elevated liver enzymes - *Chronic URI, acute - Improved Influenza Vaccine - Diabetes type 2, controlled - *Chronic Hypertension - *Controlled Gout - *Controlled GERD (gastroesophageal reflux disease) - *Controlled Osteoarthritis, knee - *Chronic Umbilical hernia - *Chronic Sinusitis, Acute - *Acute Bronchitis, Acute - *Acute Diabetes Mellitus, Adult Onset, Uncontrolled - *Chronic Other and unspecified hyperlipidemia - *Chronic Hypertension, Benign - *Chronic Diabetes type 2, controlled - *Chronic Hyperlipidemia - *Chronic Hypertension - *Chronic URI, acute - *Acute Edema - *Chronic Osteoarthritis, knee - *Chronic Upper back pain on left side - Persistent VARICELLA UNCOMPLICATED - HERPES ZOSTER NOS - DMII WO CMP NT ST UNCNTR - GOUT NOS - DRUG-INDUCED DELIRIUM - PAIN IN THORACIC SPINE - PALPITATIONS - Hypercholesterolemia - *Chronic Maxillary sinusitis, acute - *Acute Acute bronchitis - *Chronic Diabetes type 2, uncontrolled - *Chronic Hypertension - *Chronic Diabetes, type 2, unspec - *Chronic Edema - *Chronic Hypertension, benign - *Chronic Other and unspecified hyperlipidemia - *Chronic Edema - *Chronic Back pain - Intermittent Acute maxillary sinusitis - *Acute Acute bronchitis - *Acute GERD (gastroesophageal reflux disease) - *Chronic Hypertension - *Chronic DM w/o complication type II - *Chronic Varicose veins - *Symptomatic Diabetes Mellitus, Adult Onset, Uncontrolled - *Chronic Hypertension, benign - *Chronic Hyperlipidemia, NOS - *Chronic Low back pain - *Chronic Right knee pain - *Acute Hypertension, Benign - *Chronic Diabetes Mellitus Type 2, Uncomplicated - *Chronic Hypertension, Benign - *Chronic Other and unspecified hyperlipidemia - *Chronic Gynecological Examination - *Routine Family History Family Member Diagnosis Age At Onset Status Unknown Social History Social History Element Description Quantity Unknown Allergies, Adverse Reactions, Alerts Substance Reaction Severity Status OMEPRAZOLE rash Unknown OMEPRAZOLE MAGNESIUM rash Unknown PREDNISONE steroid induced delerium Unknown IODINE rash, swelling severe ERYTHROMYCIN BASE nausea/vomiting Unknown AMPICILLIN severe swelling /rash severe CLARITHROMYCIN decreased blood sugar Unknown SIMVASTATIN muscle weakness Unknown TRAMADOL HCL nausea, dizziness Unknown AMITRIPTYLINE memory loss Unknown CEPHALEXIN MONOHYDRATE facial swelling Unknown ROSUVASTATIN CALCIUM arm muscle pain Unknown Medications Medication Instructions Dosage Effective Dates (start - stop) Status allopurinol 100 mg tablet Take 2 tablets by mouth every day. - Active multivitamin tablet take 1 by Oral route every day 0 - Active ibuprofen 200 mg tablet take 4 tablets by oral route at bedtime as needed for arthritis - Active metformin 500 mg tablet Take 2 tablets by mouth twice a day. - Active Precision Xtra Test strips place 1 by stick route 3-4 times every day or as directed by physician. Dx: 250.00. - Active Precision Xtra Monitor Use to test blood sugars 3-4 times daily for 250.00 - Active Actos 15 mg tablet Take 1 tablet by mouth every day. - Active Crestor 5 mg tablet take 1 tablet (5MG) by oral route every other bedtime - Active Avalide 300 mg-12.5 mg tablet Take 1/2 tablet by mouth every day. 2012 - Active Deputy 5 mg-325 mg tablet take 1 tablet by oral route every 12 hours as needed for pain 0 - Active metoprolol tartrate 25 mg tablet take 1/2 tablet (12.5MG) by oral route twice a day - Active Stool Softener 100 mg capsule take 2 Capsule (200MG) by oral route every day at bedtime as needed 200 MG - Active Aleve 220 mg capsule TAKE 2 TABS BY MOUTH ONCE DAILY as needed 2012 - Active Dramamine 50 mg tablet take 3 tablets by oral route at bedtime 2012 - Active Lasix 20 mg tablet Take 1-2 tablets by mouth every morning. - Active Klor-Con M10 mEq tablet,extended release Take 1 tablet by mouth every day as needed for leg cramps. - Active Prevacid 30 mg capsule,delayed release Take 1 capsule by mouth twice a day. - Active Headache Relief 250 mg-250 mg-65 mg tablet take 2 by Oral route every PRN 0 - Active Flexeril 10 mg tablet take 1 tablet (10MG) by oral route every day 10 MG - Active Immunizations Vaccine Date Status Comments Flu (split) (3 yrs or older) completed Flu (split) (3 yrs or older) completed Results Test Name Date and Time Measure Units Reference Range Abnormal Flag Comments Panel Description: Hepatitis Panel-[facility] Hepatitis Core Ab IGM 08:37:00 Negative Hepatitis B Surface Antigen 08:37:00 Negative Hepatitis A Antibody IGM 08:37:00 Negative Hepatitis C Total Antibody 08:37:00 Negative Testing performed at [facility] [address] [place] [id number] Psychiatric Nurse Aditya Mancera MD Panel Description: Iron And Iron Binding Capacity-[facility] Iron 08:37:00 50 ug/dL 50-170 Iron Binding Capacity 08:37:00 348 ug/dL 260-445 Percent Saturation 08:37:00 14 % 11-46 Unbound Iron Content 08:37:00 298 ug/dl 126-382 Testing performed at [facility] [address] [place] [id number] Psychiatric Nurse Aditya Mancera MD Panel Description: Ceruloplasmin-[facility] Ceruloplasmin, S 08:37:00 27.2 mg/dL Reference Range: 16.0 - 45.0Test Performed by:[place], [place] [address]Laboratory Director: Darnell Mercer III, M.D.Testing performed at [place] [address] Psychiatric Nurse Darnell Mercer MD Panel Description: Megaloblastic Anemia-[facility] Methylmalonic Acid 08:37:00 217 nmol/L 73-271 2-Methylcitric Acid 08:37:00 132 nmol/L 60-228 Homocysteine 08:37:00 9.0 umol/L Reference Range:5.1 - 13.9 Cystathionine 08:37:00 178 nmol/L 44-342 INTERPRETATION: NORMAL B12 DEFICIENCY FOLATE DEFICIENCY --------- -- Metabolite %HIGH %HIGH %HIGH RANGE VALUES RANGE VALUES RANGE VALUES Methylmalonic Acid: 73-271 < 3 271-200,000 >95 73-271 <3 2-Methylcitric Acid: 60-228 <3 228-15,000 >80 60-228 <3 Homocysteine: 5.1-13.9 <3 14-500 >95 14-250 >95 Cystathionine: 44-342 <3 342-4000 >80 342-18,000 >80NOTE 1)Serum Methylmalonic Acid and Homocysteine are theprimary metabolic tests for diagnosing and distingushingbetween B12 and folate deficiency. They can be used inconjunction with the serum B12 which is usually low orlow normal (<350 pg/mL) in B12 deficiency and the serumfolate which is usually low or low normal (<5 ng/mL) infolate deficiency. 2- Methylcitric Acid and Cystathionineprovide confirmatory evidence for such deficiencies.Homocysteine and especially Cystathionine may also behigh in B6 deficiency.NOTE 2) Elevated levels of serum metabolites will correctto normal after treatment with the appropriate vitamin butwill not correct after treatment with the wrong vitamin,even in pharmacologic amounts.NOTE 3) Any of the four metabolites can be elevated due torenal insufficiency or intravascular volume depletion.This occurs most commonly in the case of 2-MethylcitricAcid and Cystathionine. Elevated metabolite levels do notcorrect with B12, folate or B6 treatment unless vitamindeficiency coexists.NOTE 4) Serum metabolite levels can be rechecked 5 to 15days after vitamin therapy.NOTE 5) Normal ranges 6 hours post oral Methionine load(10 mg L-Methionine/kg body wt.) are as follows: Homocysteine 16.5-45.7 umoles/Liter and Icmostdduitav310-9916 nmoles/Liter. Methylmalonic Acid and2-Methylcitric Acid do not change after a Methionine load.Test Performed by:[facility]Department of HematologyUn of [place] [address] Room 9122/91[address], Research Complex [address] [place] [id number] performed at [facility] txtr [address] [place] [id number] Psychiatric Nurse Darnell Mercer MD Vital Signs Date / Time: Height Weight Pulse Rate Blood Pressure Temperature 10:07:00 64.00 in 309.00 lbs 64 /min 128/82 mm[Hg] 97.2 F Procedures Procedure Date Unknown Encounters Encounter Location Date Patient Visit [facility] Patient Visit [facility] Patient Visit [facility] Patient Visit [facility] Patient Visit [facility] Patient Visit [facility] Patient Visit [facility] Patient Visit [facility] Patient Visit [facility] Patient Visit [facility] Patient Visit [facility] Patient Visit [facility] Patient Visit Conversion Patient Visit [facility] Patient Visit [facility] Patient Visit [facility] Patient Visit [facility] Patient Visit [facility] Patient Visit [facility] Patient Visit [facility] Advance Directives Directive Effective Date Unknown
--- OUTSIDE RECORDS SUMMARY | 2017-01-19 20:17 | XMS REPORT | Referral Summary ---
Author Author [facility], [facility] Organization [facility] Address Unknown Phone Unavailable Care Team Providers Care Refuse Collector Name Role Phone Heidy Carrero Primary Care Physician [phone] Encounter VC Date(s): 06/27/15 - 06/27/15 [facility], [address] [place] [id number]- Discharge Disposition: 01-Home or Self Care Attending [...] # 90 tabs, 3 Refill(s), [facility]acy: [facility], 1 tabs Oral Daily Start Date: 05/29/14 Status: Ordered ACTOS 15 MG ORAL TABLET See Instructions, 1 TABS ORAL DAILY, # 90 tabs, 1 Refill(s), eRx: [facility], 1 TABS ORAL DAILY Start Date: 04/08/15 Status: Ordered allopurinol 100 mg oral tablet 200 mg 2 tabs, Oral, Daily, # 270 tabs, 1 Refill(s), [facility]Rx: [facility], TAKE 3 TABLETS BY MOUTH EVERY DAY Start Date: 04/15/15 Status: Ordered Colace 100 mg oral capsule 2 caps, Oral, Daily, as needed for constipation, 0 Refill(s) Start Date: 03/09/14 Status: Ordered Crestor 5 mg oral tablet See Instructions, TAKE 1 TABLET EVERY OTHER DAY AT BEDTIME, # 45 tabs, eRx: [facility], TAKE 1 TABLET EVERY OTHER [...] # 300 Each, 3 Refill(s), Pharmacy: [facility], Prescision Xtra Blood Glucose strips--Use [...] # 90 tabs, 3 Refill(s), [facility]acy: [facility], 1 tabs Oral Daily Start Date: 06/27/15 Status: Ordered Klor-Con 10 10 mEq, Oral, Daily, as needed for leg cramps, 0 Refill(s) Start Date: 03/09/14 Status: Ordered lansoprazole 30 mg oral delayed release capsule 30 mg 1 caps, Oral, Daily, # 180 caps, 2 Refill(s), eRx: [facility], TAKE 1 CAPSULE BY MOUTH [...] 0 Refill(s) Start Date: 03/09/14 Status: Ordered [place] 5 mg-325 mg oral tablet 2 tabs, [...] stressful on the back to sit or machine clothing replacer one place. Do not sit, drive, or machine clothing replacer one place for more than 30 minutes [...] a pillow under your knees. Only take csyv-dhr-gzozspw or prescription medicines as directed by your caregiver. Kcoq-kmn-chlygvi medicines to reduce pain and inflammation are [...] Released: 09/20/2006 Document Revised: 03/21/2013 Document Reviewed: [place] Patient Information 2015 [employer]. This information is not intended to replace [...] realistic goals. Your health care provider or elementary educator can help you make an activity [...] 02/04/2015 Document Reviewed: ExitCare Patient Information 2015 [facility]. This information is not intended [...] Orders Ordered Office Visit Level 4 Est 40129: Prescriptions Prescribed irbesartan 150 mg oral tablet: 150 mg=1 tabs, Oral, Daily, 90 tabs, 3 Refill(s). Dx/Order Association Plan: Diagnosis: Acute URI Comment: Ordered: Office Visit Level 4 Est 80155; 06/27/15 10:23:00 CDT, Controlled type 2 diabetes mellitus without complication | Benign essential hypertension | Combined hyperlipidemia | Hand tendinitis | Acute URI Diagnosis: Benign essential hypertension Comment: Ordered: Office Visit Level 4 Est 31817; 06/27/15 10:23:00 CDT, Controlled type 2 diabetes mellitus without complication | Benign essential hypertension | Combined hyperlipidemia | Hand tendinitis | Acute URI Diagnosis: Chronic low back pain Comment: Diagnosis: Combined hyperlipidemia Comment: Ordered: Office Visit Level 4 Est 52595; 06/27/15 10:23:00 CDT, Controlled type 2 diabetes mellitus without complication | Benign essential hypertension | Combined hyperlipidemia | Hand tendinitis | Acute URI Diagnosis: Controlled type 2 diabetes mellitus without complication Comment: Ordered: Office Visit Level 4 Est 64346; 06/27/15 10:23:00 CDT, Controlled type 2 diabetes mellitus without complication | Benign essential hypertension | Combined hyperlipidemia | Hand tendinitis | Acute URI Diagnosis: GERD (gastroesophageal reflux disease) Comment: Diagnosis: Hand tendinitis Comment: Ordered: Office Visit Level 4 Est 38854; 06/27/15 10:23:00 CDT, Controlled type 2 diabetes [...]
--- OUTSIDE RECORDS SUMMARY | 2017-01-19 20:17 | XMS REPORT | Continuity of Care Document ---
Author Author [facility] Address Unknown Phone Unavailable Care Team Providers Care Carbon Printer Name Role Phone James Carrero PP Unavailable Payers Payer name Insurance type Covered green party ID Authorization(s) Unknown Problems Condition Effective Dates (start - stop) Clinical Status Hypercholesterolemia - *Chronic Maxillary sinusitis, acute - *Acute Acute bronchitis - *Chronic Diabetes type 2, uncontrolled - *Chronic Hypertension - *Chronic Influenza Vaccine - Diabetes type 2, controlled [...] Edema - *Chronic Osteoarthritis, knee - *Chronic VARICELLA UNCOMPLICATED - HERPES ZOSTER NOS - DMII WO CMP NT ST UNCNTR - GOUT NOS - DRUG-INDUCED DELIRIUM - PAIN IN THORACIC SPINE - PALPITATIONS - Diabetes, type 2, unspec - *Chronic Edema [...] Dosage Effective Dates (start - stop) Status sulfamethoxazole 800 mg-trimethoprim 160 mg tablet take 1 tablet by oral route every 12 hours 0 - Active multivitamin tablet take 1 by Oral route every day 0 - Active ibuprofen 200 mg tablet take 4 tablets by oral route at bedtime as needed for arthritis - Active Excedrin Extra Strength 250 mg-250 mg-65 mg tablet take 1 Tablet by Oral route every day PRN 0 - Active metformin 500 mg tablet Take 2 tablets by mouth twice a day. - Active Precision Xtra Test strips place 1 by stick route 3-4 times every day or as directed by physician. Dx: 250.00. - Active Precision Xtra Monitor Use to test blood sugars 3-4 times daily for 250.00 - Active Prevacid 30 mg capsule,delayed release Take 1 capsule by mouth twice a day. - Active Actos 15 mg tablet Take 1 tablet by mouth every day. - Active Crestor 5 mg tablet take 1 tablet (5MG) by oral route every other bedtime - Active Avalide 300 mg-12.5 mg tablet Take 1/2 tablet by mouth every day. 2012 - Active [place] 5 mg-325 mg tablet take 1 tablet [...] as needed for leg cramps. - Active omega-3 fatty acids 1,000 mg capsule take 2 by Oral route every day - Active allopurinol 100 mg tablet Take 3 tablets by mouth every day. - Active Immunizations Vaccine Date Status Comments Flu (split) (3 yrs or older) completed Flu (split) (3 yrs or older) completed Results Test Name Date and Time Measure Units Reference Range Abnormal Flag Comments Unknown Vital Signs Date / Time: Height Weight Pulse Rate Blood Pressure Temperature /14:26:00 64.00 in 314.00 lbs 68 /min 104/68 mm[Hg] 96.7 F Procedures Procedure Date Unknown Encounters Encounter Location Date Patient Visit [facility] Patient Visit [facility] Patient Visit [facility] Patient Visit [facility] Patient Visit [facility] Patient Visit [facility] Patient Visit [facility] Patient Visit [facility] Patient Visit [facility] Patient Visit [facility] Patient Visit [facility] Patient Visit [facility] Patient Visit [facility] Patient Visit [facility] Patient Visit [facility] Patient Visit [facility] Patient Visit [facility] Patient Visit [facility] Patient Visit [facility] Advance Directives Directive Effective Date Unknown
--- OUTSIDE RECORDS SUMMARY | 2017-01-19 20:17 | XMS REPORT | Referral Summary ---
Author Author [facility] Organization [facility] Address Unknown Phone Unavailable Care Team Providers Care Slip Operator Name Role Phone Heidy Carrero Primary Care Physician [phone] Encounter VC Date(s): 08/21/16 - 08/21/16 [facility], [address] [place] [id number] Discharge Diagnosis: Viral sinusitis Discharge Diagnosis: Benign essential hypertension Discharge Diagnosis: Anterior cervical lymphadenopathy Discharge Diagnosis: Combined hyperlipidemia Discharge Diagnosis: Controlled type 2 diabetes mellitus Discharge Diagnosis: TYRONE (generalized anxiety disorder) Discharge Disposition: 01-Home or Self Care Attending Physician: James Carrero MD Admitting Physician: James Carrero MD Vital Signs Most recent to 1 oldest [Reference Range]: Temperature Tympanic 36.4 degC [36.6-38.1 degC] *LOW* (08/21/16 7:31 AM) Peripheral Pulse 55 bpm Rate [60-100 bpm] *LOW* (08/21/16 7:31 AM) Blood Pressure 126/70 mmHg [90-140/60-90 mmHg] (08/21/16 7:31 AM) SpO2 95 % (08/21/16 7:31 AM) Problem List Condition Effective Dates Status [...] Instructions, # 300 Each, 3 Refill(s), Pharmacy: [facility], Prescision Xtra Blood Glucose strips--Use [...] over time. Your health care provider or firer electric locomotive can help create an activity plan that [...] Released: 12/10/2004 Document Revised: 02/04/2016 Document Reviewed: [employer] Interactive Patient Education 2016 [employer]. No follow up information was provided. Extracted from: Title: right neck pain, Author: James Carrero MD Date: 08/21/16 lymphadenitis, and other problems Impression and Plan Diagnosis Anterior cervical lymphadenopathy (FDP26-UG R59.0, Discharge, Medical). TYRONE (generalized anxiety disorder) (RUW85-QT F41.1, Discharge, Medical). Controlled type 2 diabetes mellitus (LOV73-HI E11.9, Discharge, Medical). Combined hyperlipidemia (PMQ67-OE E78.2, Discharge, Medical). Viral sinusitis (UKX33-HX J01.40, Discharge, Medical). Benign essential hypertension (BOL62-HU I10, Discharge, Medical). Plan: 1) Heat and gentle stretches to your right neck. 2) This may take up to 2 months to totally resolve., 3) Continue your routine meds. 4) See me next month as planned. 5) Healthy diet and daily walking exercise helps most things. 6) Reassurance given, that this should resolve on its own. Orders Orders (Selected) Outpatient Orders Ordered Office Visit Level 4 Est 64204: Future (On Hold) Albumin/Creatinine Ratio, Urine: CMP: Hgb A1c: Triglycerides: Uric Acid: . Dx/Order Association Plan: Diagnosis: Anterior cervical lymphadenopathy Comment: Ordered: Office Visit Level 4 Est 32338; 08/21/16 12:50:00 ANALYZER SALES, Anterior cervical lymphadenopathy | Viral sinusitis | TYRONE (generalized anxiety disorder) | Controlled type 2 diabetes mellitus | Benign essential hypertension | Combined hyperlipidemia Diagnosis: Benign essential hypertension Comment: Ordered: Office Visit Level 4 Est 67024; 08/21/16 12:50:00 ANALYZER SALES, Anterior cervical lymphadenopathy | Viral sinusitis | TYRONE (generalized anxiety disorder) | Controlled type 2 diabetes mellitus | Benign essential hypertension | Combined hyperlipidemia Diagnosis: Combined hyperlipidemia Comment: Ordered: Office Visit Level 4 Est 05856; 08/21/16 12:50:00 ANALYZER SALES, Anterior cervical lymphadenopathy | Viral sinusitis | TYRONE (generalized anxiety disorder) | Controlled type 2 diabetes mellitus | Benign essential hypertension | Combined hyperlipidemia Diagnosis: Controlled type 2 diabetes mellitus Comment: Ordered: Office Visit Level 4 Est 69055; 08/21/16 12:50:00 ANALYZER SALES, Anterior cervical lymphadenopathy | Viral sinusitis | TYRONE (generalized anxiety disorder) | Controlled type 2 diabetes mellitus | Benign essential hypertension | Combined hyperlipidemia Diagnosis: TYRONE (generalized anxiety disorder) Comment: Ordered: Office Visit Level 4 Est 65560; 08/21/16 12:50:00 ANALYZER SALES, Anterior cervical lymphadenopathy | Viral sinusitis | TYRONE (generalized anxiety disorder) | Controlled type 2 diabetes mellitus | Benign essential hypertension | Combined hyperlipidemia Diagnosis: Viral sinusitis Comment: Ordered: Office Visit Level 4 Est 74581; 08/21/16 12:50:00 ANALYZER SALES, Anterior cervical lymphadenopathy | Viral sinusitis | TYRONE (generalized anxiety disorder) | Controlled type 2 diabetes mellitus | Benign essential hypertension | Combined hyperlipidemia End of Orders ."
--- OUTSIDE RECORDS SUMMARY | 2017-01-19 20:18 | XMS REPORT | Referral Summary ---
Author Author [facility] Organization [facility] Address Unknown Phone Unavailable Care Team Providers Care Electroencephalograph Technician Name Role Phone Heidy Carrero Primary Care Physician [phone] Encounter VC Date(s): 03/28/15 - 03/28/15 [facility], [address] [place] [id number] Discharge Diagnosis: Depression Discharge Disposition: 01-Home or [...] # 90 tabs, 1 Refill(s), [facility]: [facility], 1 TABS ORAL DAILY Start Date: 04/08/15 Status: Ordered allopurinol 100 mg oral tablet 200 mg 2 tabs, Oral, Daily, # 270 tabs, 1 Refill(s), eRx: [facility], TAKE 3 TABLETS BY MOUTH EVERY DAY Start Date: 04/15/15 Status: Ordered Avalide 300 mg-12.5 mg oral tablet 0.5 tabs, Oral, Daily, # 45 tabs, 3 Refill(s), Pharmacy: [facility] Start Date: 07/22/15 Stop Date: 07/16/16 Status: Ordered Colace 100 mg oral capsule 2 caps, Oral, Daily, as needed for constipation, 0 Refill(s) Start Date: 03/09/14 Status: Ordered Crestor 5 mg oral tablet See Instructions, TAKE 1 TABLET EVERY OTHER DAY AT BEDTIME, # 45 tabs, eRx: [facility], TAKE 1 TABLET EVERY OTHER DAY AT BEDTIME Start Date: 09/04/15 Status: Ordered Dramamine 75 mg, Oral, Bedtime [...] # 300 Each, 3 Refill(s), Pharmacy: [facility], Prescision Xtra Blood Glucose strips--Use to test blood 4 times a d... Start Date: 05/03/14 Status: Ordered Glucometer strips (DME) DME Item Free style GLUCOSE STRIPS--USE TO TEST BLOOD 4 TIMES A DAY FOR DIABETES E11.8, See Instructions, # 3 boxes, 2 Refill(s), PRESCISION XTRA BLOOD GLUCOSE STRIPS--USE TO TEST BLOOD 4 TIMES A DAY FOR DIABETES 250.00 Start Date: 10/03/15 Status: Ordered ibuprofen 4 tabs, Oral, TID, as needed for back pain, 0 Refill(s) Start Date: 03/09/14 Status: Ordered Invokana 100 mg oral tablet 100 mg 1 tabs, Oral, Daily, # 90 tabs, 3 Refill(s), Pharmacy: [facility], 1 tabs Oral Daily Start Date: 10/02/15 Status: Ordered Klor-Con 10 10 mEq, Oral, Daily, as needed for leg cramps, 0 Refill(s) Start Date: 03/09/14 Status: Ordered lansoprazole 30 mg oral delayed release capsule 60 mg 2 caps, Oral, Daily, # 180 caps, 2 Refill(s), [facility]acy: [facility], 2 caps Oral Daily Start [...] 0 Refill(s) Start Date: 03/09/14 Status: Ordered [place] 5 mg-325 mg oral tablet 2 tabs, Oral, Bedtime (once a day), as needed for pain, [facility], # 180 tabs, 0 Refill(s) Start Date: 07/22/15 Stop Date: 10/20/15 Status: Ordered pioglitazone 15 mg oral tablet [...] serious side effect. FOR MORE INFORMATION National [place] on Mental Illness: www.linette.org National [place] of Mental Health: www.nimh.nih.gov Document Released: 09/17/2001 Document Revised: 03/21/2013 Document Reviewed: ExitCare Patient Information 2014 [email or web address]. No follow up information was provided. Extracted [...] Orders Ordered Office Visit Level 5 Est 61946: Wrist hand orthosis, wrist extension control cock-up, non molded, L3908: Future (On Hold) Albumin/Creatinine Ratio, Urine: CMP: Hgb A1c: Triglycerides: . Dx/Order Association Plan: Diagnosis: Benign essential hypertension Comment: Ordered: Office Visit Level 5 Est 18028; 03/28/15 10:33:00 CDT, Benign essential hypertension | Osteoarthritis of wrist | Controlled type 2 diabetes mellitus without complication | Combined hyperlipidemia | Morbid obesity Diagnosis: Combined hyperlipidemia Comment: Ordered: Office Visit Level 5 Est 62022; 03/28/15 10:33:00 CDT, Benign essential hypertension | Osteoarthritis of wrist | Controlled type 2 diabetes mellitus without complication | Combined hyperlipidemia | Morbid obesity Diagnosis: Controlled type 2 diabetes mellitus without complication Comment: Ordered: Office Visit Level 5 Est 59375; 03/28/15 10:33:00 CDT, Benign essential hypertension | Osteoarthritis of wrist | Controlled type 2 diabetes mellitus without complication | Combined hyperlipidemia | Morbid obesity Diagnosis: Depression Comment: Ordered: Office Visit Level 5 Est 00663; 03/28/15 10:33:00 CDT, Benign essential hypertension | Osteoarthritis of wrist | Controlled type 2 diabetes mellitus without complication | Combined hyperlipidemia | Morbid obesity Diagnosis: Morbid obesity Comment: Ordered: Office Visit Level 5 Est 34462; 03/28/15 10:33:00 CDT, Benign essential hypertension | Osteoarthritis of wrist | Controlled type 2 diabetes mellitus without complication | Combined hyperlipidemia | Morbid obesity Diagnosis: Osteoarthritis of wrist Comment: Ordered: Wrist hand orthosis, wrist extension control cock-up, non molded, L3908; 03/28/15 13:43:00 CDT, Osteoarthritis of wrist, 1 Office Visit Level 5 Est 29068; 03/28/15 10:33:00 CDT, Benign essential hypertension | [...]
--- OUTSIDE RECORDS SUMMARY | 2017-01-19 20:18 | XMS REPORT | Referral Summary ---
Author Author [facility] Organization [facility] Address Unknown Phone Unavailable Care Team Providers Care Agriculture Instructor Name Role Phone Heidy Carrero Primary Care Physician [phone] Encounter VC Date(s): 10/01/15 - 10/01/15 [facility], [address] [place] [address]- Discharge Disposition: 01-Home or Self Care Attending Physician: James Carrero MD Admitting Physician: James Carrero MD Vital Signs Most recent to 1 oldest [Reference Range]: Temperature Tympanic 36.4 degC [36.6-38.1 degC] *LOW* (10/01/15 8:17 AM) Peripheral Pulse 60 bpm Rate [60-100 bpm] (10/01/15 8:17 AM) Blood Pressure 128/82 mmHg [90-140/60-90 mmHg] (10/01/15 8:17 AM) Problem List Condition Effective Dates Status [...] DAILY, # 90 tabs, 1 Refill(s), eRx: [facility], 1 TABS ORAL DAILY Start Date: 04/08/15 Status: Ordered allopurinol 100 mg oral tablet 200 mg 2 tabs, Oral, Daily, # 270 tabs, 1 Refill(s), eRx: [facility], TAKE 3 TABLETS BY MOUTH EVERY DAY Start Date: 04/15/15 Status: Ordered Avalide 300 mg-12.5 mg oral tablet 0.5 tabs, Oral, Daily, # 45 tabs, 3 Refill(s), Pharmacy: [facility] Start Date: 07/22/15 Stop Date: 07/16/16 Status: Ordered Colace 100 mg oral capsule 2 caps, Oral, Daily, as needed for constipation, 0 Refill(s) Start Date: 03/09/14 Status: Ordered Crestor 5 mg oral tablet See Instructions, TAKE 1 TABLET EVERY OTHER DAY AT BEDTIME, # 45 tabs, eRx: [facility], TAKE 1 TABLET EVERY OTHER [...] # 300 Each, 3 Refill(s), Pharmacy: [facility], Prescision Xtra Blood Glucose strips--Use [...] 0 Refill(s) Start Date: 03/09/14 Status: Ordered [place] 5 mg-325 mg oral tablet 2 tabs, [...] Carrero MD Date: Family Medicine Diabetes and Exercise Exercising regularly is important. [...] realistic goals. Your health care provider or supervisor kosher dietary service can help you make an activity plan [...] 02/04/2015 Document Reviewed: ExitCare Patient Information 2015 [employer] [facility]. This information is not intended to replace advice given to you by your health care provider. Make sure you discuss any questions you have with your health care provider. No follow up information was provided. Extracted from: Title: DM, HTN Author: James Carrero MD Date: 10/01/15 Impression and Plan Diagnosis Controlled type 2 diabetes mellitus without complication (XIS41-FH E11.9, Working, Medical). Benign hypertension (WVL65-HO I10, Working, Medical). Combined hyperlipidemia (XYI88-FW E78.2, Working, Medical). GERD (gastroesophageal reflux disease) (MHA19-VE K21.9, Working, Medical). Plan: 1) Healthy diet and daily exercise. 2) Continue your present meds. 3) See me in about 3 months, with lab a day before.. Orders Orders (Selected) Outpatient Orders Ordered Office Visit Level 4 Est 79429: Future (On Hold) Albumin/Creatinine Ratio, Urine: CMP: Hgb A1c: LDL Direct: . Dx/Order Association Plan: Diagnosis: Benign hypertension Comment: Ordered: Office Visit Level 4 Est 33460; 10/01/15 8:41:00 WELFARE INVESTIGATOR, Controlled type 2 diabetes mellitus without complication | Benign hypertension | Combined hyperlipidemia | GERD (gastroesophageal reflux disease) Diagnosis: Combined hyperlipidemia Comment: Ordered: Office Visit Level 4 Est 11516; 10/01/15 8:41:00 WELFARE INVESTIGATOR, Controlled type 2 diabetes mellitus without complication | Benign hypertension | Combined hyperlipidemia | GERD (gastroesophageal reflux disease) Diagnosis: Controlled type 2 diabetes mellitus without complication Comment: Ordered: Office Visit Level 4 Est 82309; 10/01/15 8:41:00 WELFARE INVESTIGATOR, Controlled type 2 diabetes mellitus without complication | Benign hypertension | Combined hyperlipidemia | GERD (gastroesophageal reflux disease) Diagnosis: GERD (gastroesophageal reflux disease) Comment: Ordered: Office Visit Level 4 Est 69128; 10/01/15 8:41:00 WELFARE INVESTIGATOR, Controlled type 2 diabetes mellitus without complication | Benign hypertension | Combined hyperlipidemia | GERD (gastroesophageal reflux disease) Diagnosis: Controlled type 2 diabetes mellitus without complication Comment: Diagnosis: Combined hyperlipidemia Comment: Diagnosis: Benign hypertension Comment: Diagnosis: Controlled type 2 diabetes mellitus without complication Comment: Diagnosis: Combined hyperlipidemia Comment: Diagnosis: Controlled type 2 diabetes mellitus without complication Comment: End of Orders ."
--- OUTSIDE RECORDS SUMMARY | 2017-01-19 20:18 | XMS REPORT | Referral Summary ---
Author Author [facility] Organization [facility] Address Unknown Phone Unavailable Care Team Providers Care Solution Advisor Name Role Phone Heidy Carrreo Primary Care Physician [phone] Encounter VC Date(s): 07/22/15 - 07/22/15 [facility], [address] [place] [id number] Discharge Disposition: 01-Home or Self Care Attending [...] Daily, # 90 tabs, 3 Refill(s), Pharmacy: [facility], 1 tabs Oral Daily Start Date: 05/29/14 Status: Ordered ACTOS 15 MG ORAL TABLET See Instructions, 1 TABS ORAL DAILY, # 90 tabs, 1 Refill(s), eRx: [facility], 1 TABS ORAL DAILY Start Date: 04/08/15 Status: Ordered allopurinol 100 mg oral tablet 200 mg 2 tabs, Oral, Daily, # 270 tabs, 1 Refill(s), eRx: [facility], TAKE 3 TABLETS BY MOUTH EVERY DAY Start Date: 04/15/15 Status: Ordered Avalide 300 mg-12.5 mg oral tablet 0.5 tabs, Oral, Daily, # 45 tabs, 3 Refill(s), Pharmacy: [facility] Start Date: 07/22/15 Stop Date: 07/16/16 Status: Ordered Colace 100 mg oral capsule 2 caps, Oral, Daily, as needed for constipation, 0 Refill(s) Start Date: 03/09/14 Status: Ordered Crestor 5 mg oral tablet See Instructions, TAKE 1 TABLET EVERY OTHER DAY AT BEDTIME, # 45 tabs, eRx: [facility], TAKE 1 TABLET EVERY OTHER [...] 0 Refill(s) Start Date: 03/09/14 Status: Ordered Shawmut 5 mg-325 mg oral tablet 2 tabs, [...] Released: 09/17/2001 Document Revised: 05/23/2014 Document Reviewed: [facility] Patient Information 2015 [employer]. This information is not intended to replace [...] the brain. Treatment for migraine may include lhsp-ffr-tkkikpg or prescription medications. It may also include [...] the headache after it has started. Examples ksvj-ytz-kmdwysf medications, NSAIDs, ergots, and triptans. Q: What [...] a main cause of migraine. Q: Are vnzx-gle-vbrksdu medications for migraine effective? A: Umxe-qva-ntfllbc, or "OTC," medications may be effective in [...] neck. Treatment for tension-type headache may include cyav-cda-jxjrsni or prescription medications. Treatment may also include [...] will provide, upon request, a list of [employer] physician members in your state. Document Released: 12/10/2004 Document Revised: 12/12/2012 Document Reviewed: [employer] Patient Information 2015 [employer]. This information is not intended to replace advice given to you by your health care provider. Make sure you discuss any questions you have with your health care provider. No follow up information was provided. Extracted from: Title: left subconjunctival Author: James Carrero MD Date: 07/22/15 hemorrhage, HTN, DM, Hypercholesterolemia Impression and Plan Diagnosis Subconjunctival hemorrhage (GFQ46-PR H11.32, Working, Medical). Benign essential hypertension (LZH37-KI I10, Working, Medical). Headache (AQS02-RZ R51, Working, Medical). Controlled type 2 diabetes mellitus without complication (KMS51-AO E11.9, Working, Medical). Combined hyperlipidemia (TDY99-NT E78.2, Working, Medical). Plan: 1) Reassurance about the eye, which should resolve on its own. 2) Increase the BP med to 1/2 tab of Avalide 300/12.5 daily, as before. Stop the Avapro. 3) See me in 1 month and as needed.. Orders Orders (Selected) Outpatient Orders Ordered Office Visit Level 4 Est 66107: Future (On Hold) Albumin/Creatinine Ratio, Urine: CBC w/ Differential: CMP: Hgb A1c: Triglycerides: Prescriptions Prescribed Avalide 300 mg-12.5 mg oral tablet: 0.5 tabs, Oral, Daily, for 90 days, 45 tabs , 3 Refill(s) Shawmut 5 mg-325 mg oral tablet: 2 tabs, Oral, Bedtime (once a day), for 90 days, [facility], PRN: as needed for pain, 180 tabs, 0 Refill(s). Dx/Order Association Plan: Diagnosis: Benign essential hypertension Comment: Ordered: Office Visit Level 4 Est 65380; 07/22/15 18:02:00 CDT, Subconjunctival hemorrhage | Benign essential hypertension | Headache | Controlled type 2 diabetes mellitus without complication Diagnosis: Combined hyperlipidemia Comment: Diagnosis: Controlled type 2 diabetes mellitus without complication Comment: Ordered: Office Visit Level 4 Est 30225; 07/22/15 18:02:00 CDT, Subconjunctival hemorrhage | Benign essential hypertension | Headache | Controlled type 2 diabetes mellitus without complication Diagnosis: Headache Comment: Ordered: Office Visit Level 4 Est 03888; 07/22/15 18:02:00 CDT, Subconjunctival hemorrhage | Benign essential hypertension | Headache | Controlled type 2 diabetes mellitus without complication Diagnosis: Subconjunctival hemorrhage Comment: Ordered: Office Visit Level 4 Est 63561; 07/22/15 18:02:00 CDT, Subconjunctival hemorrhage | Benign essential hypertension | Headache | Controlled type 2 diabetes mellitus without complication Additional Orders: Comment: Discontinued: Avalide 300 mg-12.5 mg oral tablet,0.5 tabs, Oral, Daily, 0 Refill(s) Ordered: Avalide 300 mg-12.5 mg oral tablet,0.5 tabs, Oral, Daily, # 45 tabs, 3 Refill(s), Pharmacy: [facility] Ordered: Shawmut 5 mg-325 mg oral tablet,2 tabs, Oral, Bedtime (once a day), as needed for pain, [facility], # 180 tabs, 0 Refill(s) End of Orders .
--- OUTSIDE RECORDS SUMMARY | 2017-01-19 20:18 | XMS REPORT | Referral Summary ---
Author Author [facility] Organization [facility] Address Unknown Phone Unavailable Care Team Providers Care Manager Ccu Name Role Phone Heidy Carrero Primary Care Physician [phone] Encounter VC Date(s): 05/07/16 - 05/07/16 [facility], [address] [place] [id number] Discharge Disposition: 01-Home or Self Care Attending Physician: James Carrero MD Admitting Physician: James Carrero MD Vital Signs Most recent to 1 oldest [Reference Range]: Temperature Tympanic 35.9 degC [36.6-38.1 degC] *LOW* (05/07/16 9:40 AM) Peripheral Pulse 56 bpm Rate [60-100 bpm] *LOW* (05/07/16 9:40 AM) Blood Pressure 152/84 mmHg [90-140/60-90 mmHg] *HI* (05/07/16 9:40 AM) Problem List Condition Effective Dates Status [...] Date: 03/27/16 Stop Date: 03/22/17 Status: Ordered loperamide 2 mg, Oral, Daily, as needed for diarrhea, 0 Refill(s) Start Date: 12/27/15 Status: Ordered metFORMIN 500 mg oral tablet 1,000 mg 2 tabs, Oral, BID, # 360 tabs, 3 Refill(s), Pharmacy: [facility], 2 tabs Oral BID Start Date: 03/27/16 Status: Ordered multivitamin 1 tabs, Oral, Daily, 0 Refill(s) Start Date: 03/09/14 Status: Ordered pioglitazone 15 mg oral tablet 15 mg 1 tabs, Oral, Daily, # 90 tabs, 0 Refill(s), TAKE 1 TABLET DAILY Start Date: 01/13/16 Status: Ordered sulfamethoxazole-trimethoprim 800 mg-160 mg oral tablet 1 tabs, Oral, BID, X 10 days, # 20 tabs, 0 Refill(s) Start Date: 05/07/16 Stop Date: 05/17/16 Status: Ordered Tussin 200 mg, Oral, q4hr, [...] smell coming from an ulcer or wound. This information is not intended to replace advice given to you by your health care provider. Make sure you discuss any questions you have with your health care provider. Document Released: 09/17/2001 Document Revised: 05/23/2014 Document Reviewed: [facility] Patient Information 2016 [facility]. Preventive Medicine Heart Disease Prevention Heart disease is a leading cause of . There are many things you can do to help prevent heart disease. BE PHYSICALLY ACTIVE Physical activity is good for your heart. It helps control your blood pressure, cholesterol levels, and weight. Try to be physically active every day. Ask your health care provider what activities are best for you. BE A HEALTHY WEIGHT Extra weight can strain your heart and affect your blood pressure and cholesterol levels. Lose weight with diet and exercise if recommended by your health care provider. EAT HEART-HEALTHY FOODS Follow a healthy eating plan as recommended by your health care provider or dietitian. Heart-healthy foods include: High-fiber foods. These include oat bran, oatmeal, and whole-grain breads and cereals. Fruits and vegetables. Avoid: Alcohol. Fried foods. Foods high in saturated fat. These include meats, butter, whole dairy products, shortening, and coconut or palm oil. Salty foods. These include canned food, luncheon meat, salty snacks, and fast food. KEEP YOUR CHOLESTEROL LEVELS UNDER CONTROL Cholesterol is a substance that is used for many important functions. When your cholesterol levels are high, cholesterol can stick to the insides of your blood vessels, making them narrow or clog. This can lead to chest pain (angina) and a heart attack. Keep your cholesterol levels under control as recommended by your health care provider. Have your cholesterol checked at least once a year. Target cholesterol levels (in mg/dL) for most people are: Total cholesterol below 200. LDL cholesterol below 100. HDL cholesterol above 40 in men and above 50 in women. Triglycerides below 150. KEEP YOUR BLOOD PRESSURE UNDER CONTROL Having high blood pressure (hypertension) puts you at risk for stroke and other forms of heart disease. Keep your blood pressure under control as recommended by your health care provider. Ask your health care provider if you need treatment to lower your blood pressure. If you are 1839 years of age, have your blood pressure checked every 35 years. If you are 40 years of age or older, have your blood pressure checked every year. DO NOT USE TOBACCO PRODUCTS Tobacco smoke can damage your heart and blood vessels. Do not use any tobacco products including cigarettes, chewing tobacco, or electronic cigarettes. If you need help quitting, ask your health care provider. TAKE MEDICINES DIRECTED Take medicines only as directed by your health care provider. Ask your health care provider whether you should take an aspirin every day. Taking aspirin can help reduce your risk of heart disease and stroke. FOR MORE INFORMATION To find out more about heart disease, visit the [place] [employer] Association's website at www.americanheart.org This information is not intended to replace advice given to you by your health care provider. Make sure you discuss any questions you have with your health care provider. Document Released: 05/04/2005 Document Revised: 10/11/2015 Document Reviewed: ExitCare Patient Information 2016 [email or web address] [facility]. No follow up information was provided. Extracted from: Title: DM, HTN, sinusitis Author: James Carrero MD Date: 05/07/16 Impression and Plan Diagnosis Benign hypertension (GSS67-NF I10, Working, Medical). Controlled type 2 diabetes mellitus without complication (JNN79-JP E11.9, Working, Medical). Anxiety disorder (AGM86-XC F41.1, Working, Medical). Mixed hyperlipidemia (SSI41-KD E78.2, Working, Medical). Acute frontal sinusitis (RQW09-EI J01.10, Working, Medical). Plan: 1) Start Metoprolol 25 mg BID tonight. 2) May take the Sulfa antibiotic after several days if you get a worsened sinusitis. 3) May take an extra Avapro and/or extra Metoprolol as needed for elevated BP , up to daily for both. 4) May take a HCTZ up to once or twice a day, if absolutely necessary for elevated BP. 5) Continue your routine meds otherwise. 6) Stay off the Lasix for now. 7) See as scheduled in June.. Orders Orders (Selected) Outpatient Orders Ordered Office Visit Level 4 Est 05423: Future (On Hold) Albumin/Creatinine Ratio, Urine: CMP: Hgb A1c: Triglycerides: Prescriptions Prescribed sulfamethoxazole-trimethoprim 800 mg-160 mg oral tablet: 1 tabs, Oral, BID, for 10 days, 20 tabs, 0 Refill(s). Dx/Order Association Plan: Diagnosis: Acute frontal sinusitis Comment: Ordered: Office Visit Level 4 Est 05950; 05/07/16 17:03:00 CDT, Benign hypertension | Acute frontal sinusitis | Controlled type 2 diabetes mellitus without complication | Anxiety disorder | Mixed hyperlipidemia Diagnosis: Anxiety disorder Comment: Ordered: Office Visit Level 4 Est 16777; 05/07/16 17:03:00 CDT, Benign hypertension | Acute frontal sinusitis | Controlled type 2 diabetes mellitus without complication | Anxiety disorder | Mixed hyperlipidemia Diagnosis: Benign hypertension Comment: Ordered: Office Visit Level 4 Est 04705; 05/07/16 17:03:00 CDT, Benign hypertension | Acute frontal sinusitis | Controlled type 2 diabetes mellitus without complication | Anxiety disorder | Mixed hyperlipidemia Diagnosis: Controlled type 2 diabetes mellitus without complication Comment: Ordered: Office Visit Level 4 Est 90067; 05/07/16 17:03:00 CDT, Benign hypertension | Acute frontal sinusitis | Controlled type 2 diabetes mellitus without complication | Anxiety disorder | Mixed hyperlipidemia Diagnosis: Mixed hyperlipidemia Comment: Ordered: Office Visit Level 4 Est 22592; 05/07/16 17:03:00 CDT, Benign hypertension | Acute frontal sinusitis | Controlled type 2 diabetes mellitus without complication | Anxiety disorder | Mixed hyperlipidemia Additional Orders: Comment: Ordered: sulfamethoxazole-trimethoprim 800 mg-160 mg oral tablet,1 tabs, Oral, BID, X 10 days, # 20 tabs, 0 Refill(s) End of Orders ."
--- OUTSIDE RECORDS SUMMARY | 2017-01-19 20:18 | XMS REPORT | Referral Summary ---
Author Author [facility] Organization [facility] Address Unknown Phone Unavailable Care Team Providers Care Ice House Supervisor Name Role Phone Heidy Carrero Primary Care Physician [phone] Encounter VC Date(s): 12/27/15 - 12/27/15 [facility], [address] [place] [id number] Discharge Disposition: 01-Home or Self Care Attending Physician: James Carrero MD Admitting Physician: James Carrero MD Vital Signs Most recent to 1 oldest [Reference Range]: Temperature Tympanic 35.6 degC [36.6-38.1 degC] *LOW* (12/27/15 10:14 AM) Peripheral Pulse 60 bpm Rate [60-100 bpm] (12/27/15 10:14 AM) Blood Pressure 126/74 mmHg [90-140/60-90 mmHg] (12/27/15 10:14 AM) Problem List Condition Effective Dates Status [...] Daily, # 270 tabs, 1 Refill(s), eRx: [facility], TAKE 3 TABLETS BY MOUTH EVERY DAY Start Date: 04/15/15 Status: Ordered Avalide 300 mg-12.5 mg oral tablet 0.5 tabs, Oral, Daily, # 45 tabs, 3 Refill(s), Pharmacy: [facility] Start Date: 07/22/15 Stop Date: 07/16/16 Status: Ordered Colace 100 mg oral capsule 2 caps, Oral, Daily, as needed for constipation, 0 Refill(s) Start Date: 03/09/14 Status: Ordered Crestor 5 mg oral tablet See Instructions, TAKE 1 TABLET EVERY OTHER DAY AT BEDTIME, # 45 tabs, 3 Refill( s), Pharmacy: [facility], TAKE 1 TABLET EVERY OTHER [...] MORNING, # 180 tabs, 1 Refill(s), eRx: [facility], TAKE 2 TABLETS EVERY MORNING [...] Instructions, # 300 Each, 3 Refill(s), Pharmacy: [facility], Prescision Xtra Blood Glucose strips--Use [...] Daily, # 180 caps, 2 Refill(s), Pharmacy: [facility], 2 caps Oral Daily Start Date: 07/26/15 Status: Ordered loperamide 2 mg, Oral, Daily, as needed for diarrhea, 0 Refill(s) Start Date: 12/27/15 Status: Ordered metFORMIN 500 mg oral tablet See Instructions, TAKE 2 TABLETS TWICE A DAY, # 360 tabs, 2 Refill(s), Pharmacy : [facility], TAKE 2 TABLETS TWICE A DAY Start Date: 10/28/15 Status: Ordered Metoprolol Tartrate 25 mg oral tablet See Instructions, TAKE 1 TAB IN THE AM AND 1 TAB IN THE PM, # 180 tabs, 1 Refill (s), Pharmacy: [facility], TAKE 1 TAB IN THE AM AND 1 TAB IN THE PM Start Date: 10/28/15 Status: Ordered multivitamin 1 tabs, Oral, Daily, 0 Refill(s) Start Date: 03/09/14 Status: Ordered Woodson 5 mg-325 mg oral tablet 2 tabs, Oral, Bedtime (once a day), as needed for pain, [facility], # 180 tabs, 0 Refill(s) Start Date: 10/28/15 Stop Date: 01/26/16 Status: Ordered pioglitazone 15 mg oral tablet See Instructions, TAKE 1 TABLET DAILY, # 90 tabs, 1 Refill(s), eRx: [facility], TAKE 1 TABLET DAILY Start [...] Patient Education Author: James Carrero MD Date: 12/26 Family Medicine Heart Disease Prevention Heart disease is [...] as recommended by your health care provider. DO NOT USE TOBACCO PRODUCTS Tobacco smoke [...] out more about heart disease, visit the [place] [employer]'s website at www.americanheart.org This information is not intended to replace advice given to you by your health care provider. Make sure you discuss any questions you have with your health care provider. Document Released: 05/04/2005 Document Revised: 07/09/2015 Document Reviewed: ExitCare Patient Information 2015 [employer]. [facility] Diabetes and Exercise Exercising [...] over time. Your health care provider or manager diabetes can help create an activity plan that [...] care provider. Document Released: 12/10/2004 Document Revised: 07/09/2015 Document Reviewed: [facility] Patient Information 2015 [employer]. Nutrition Fatty Liver Fatty liver, also called [...] Drinking too much alcohol. Poor nutrition. Obesity. Jailene syndrome. Diabetes. Hyperlipidemia. . Certain drugs. Poisons. [...] care provider. Document Released: 11/05/2006 Document Revised: 07/09/2015 Document Reviewed: [facility] Patient Information 2015 [employer]. No follow up information was provided. Extracted from: Title: DM, hyperlipidemia, fatty Author: James Carrero MD Date: 12/27/15 liver, HTN Impression and Plan Diagnosis Combined hyperlipidemia (ENK34-WE E78.2, Working, Medical). Benign hypertension (UHV81-SL I10, Working, Medical). Morbid obesity (PHO80-CV E66.01, Working, Medical). Uncontrolled type 2 diabetes mellitus (OMV61-MX E11.65, Working, Medical). Fatty liver (EEU70-VG K76.0, Working, Medical). Plan: 1) Start the Januvia as prescribed. 2) Lab in 3 months. 3) See me in 3 months and as needed. 4) Healthy diet and daily exercise is important. 5) Continue your routine meds otherwise.. Orders Orders (Selected) Outpatient Orders Ordered Office Visit Level 4 Est 49238: Future (On Hold) Albumin/Creatinine Ratio, Urine: CMP: Hgb A1c: Triglycerides: Prescriptions Prescribed Crestor 5 mg oral tablet: See Instructions, TAKE 1 TABLET EVERY OTHER DAY AT BEDTIME, 45 tabs, 3 Refill(s). Dx/Order Association Plan: Diagnosis: Benign hypertension Comment: Ordered: Office Visit Level 4 Est 57829; 12/27/15 10:45:00 CDT, Uncontrolled type 2 diabetes mellitus | Benign hypertension | Combined hyperlipidemia | Fatty liver Diagnosis: Combined hyperlipidemia Comment: Ordered: Office Visit Level 4 Est 39567; 12/27/15 10:45:00 CDT, Uncontrolled type 2 diabetes mellitus | Benign hypertension | Combined hyperlipidemia | Fatty liver Diagnosis: Fatty liver Comment: Ordered: Office Visit Level 4 Est 77155; 12/27/15 10:45:00 CDT, Uncontrolled type 2 diabetes mellitus | Benign hypertension | Combined hyperlipidemia | Fatty liver Diagnosis: Morbid obesity Comment: Diagnosis: Uncontrolled type 2 diabetes mellitus Comment: Ordered: Office Visit Level 4 Est 07624; 12/27/15 10:45:00 CDT, Uncontrolled type 2 diabetes mellitus | Benign hypertension | Combined hyperlipidemia | Fatty liver Diagnosis: Uncontrolled type 2 diabetes mellitus Comment: Diagnosis: Uncontrolled type 2 diabetes mellitus Comment: Diagnosis: Combined hyperlipidemia Comment: Diagnosis: Uncontrolled type 2 diabetes mellitus Comment: Diagnosis: Combined hyperlipidemia Comment: Diagnosis: Fatty liver Comment: Diagnosis: Benign hypertension Comment: Additional Orders: Comment: Ordered: Crestor 5 mg oral tablet,See Instructions, TAKE 1 TABLET EVERY OTHER DAY AT BEDTIME, # 45 tabs, 3 Refill(s), Pharmacy: [facility], TAKE 1 TABLET EVERY OTHER DAY AT BEDTIME Discontinued: Januvia 100 mg oral tablet,100 mg 1 tabs, Oral, Daily , # 30 tabs, 0 Refill(s) End of Orders ."
--- NOTE | 2017-01-19 20:25 | NUR ---
PROVIDER DR WIGGINS IN ROOM W/ PT.
[2017-01-19] MEDS ORDERED: FURO-154 PO (20:33)
[2017-01-19] MEDS ORDERED: IRBE150T49 PO (20:33)
[2017-01-19] MEDS ORDERED: NORMAL SALINE 1,000 ML IV ONE (20:38)
--- OUTSIDE RECORDS SUMMARY | 2017-01-19 20:40 | XMS REPORT | Continuity of Care Document ---
Author Author [facility] Organization [facility] Address Unknown Phone Unavailable Allergies Medications Problems Procedures Results Encounters ACCT No. Visit Date/Time Discharge Status Pt. Type Provider Facility Loc./Unit Complaint [id number] 12/13/2013 10:00:00 12/13/2013 23 :59:59 CLS Outpatient [id number] 10/12/2013 14:23:00 10/12/2013 23 :59:59 CLS Outpatient
--- NOTE | 2017-01-19 20:44 | ERPDOC ---
Departure Disposition Decision Date: Jan 19, 2017 Disposition Decision Time: 22:08 Disposition: 01 DISCHARGED HOME, SELF-CARE Impression Impression Impression: Primary Impression: UTI (urinary tract infection) Urinary tract infection type: acute cystitis Hematuria presence: without hematuria Qualified Codes: N30.00 - Acute cystitis without hematuria Severity: Moderate Condition: Improved Seen By: Physician only Referrals: PEGGY DOBBINS MD (Family) 3 Days Patient Instructions: Urinary Tract Infection in Women (ED) Problems/Meds/Labs Reviewed?: Yes Medications reviewed and manag: Yes Additional Instructions: You have a urinary tract infection. Take the antibiotic as prescribed. Drink plenty of fluids. Follow up with your doctor in the next few days. Follow up care ordered?: Yes Mental Status: Alert, Oriented Scripts Nitrofurantoin Monohyd/M-Cryst (Macrobid 100 mg Capsule) 100 Mg Capsule 1 CAP PO BIDWM for 7 Days, #14 CAP Take 2 (100 mg) capsules, by mouth, twice daily with meals. Prov: M DO 01/19/17 HPI - Dyspnea General Chief Complaint: Cough,Fever,Flu,URI Stated Complaint: HIGH BP, FEVER, HIGH BLOOD SUGAR Time Seen by Provider: 20:25 Source: patient Exam Limitations: no limitations HPI - Dyspnea Initial Comments 61yo woman presents tonight for 'not feeling well'. Pt has had some dental pain/ abscesses. She had several teeth pulled 7 days ago; was placed on clindamycin following. Over the last several days, pt has developed progressively worsening dyspnea (first on exertion, now at rest). Pt has had an elevated temp to 99'F ( typically runs 96'F). Has not felt well at all the last several days. Now has a productive cough. She called here, then her doctor. Was told to present to the ER for further eval. Occurred At: home Onset/Timing: Gradual, Getting worse Duration: 1 week Severity: moderate Prior Episodes/Possible Cause: occasional episodes Modifying Factors: IMPROVES WITH: rest, WORSE WITH: activity, coughing Associated Symptoms: cough, fever/chills, malaise, nausea/vomiting, shortness of breath, weakness, DENIES: chest pain, diaphoresis, headaches, loss of appetite, rash, seizure, syncope Aspirin Treatment Today: contraindicated Hx of Similar Symptoms: No Allergies: Coded Allergies: Ampicillin (Verified Allergy, Severe, SEVERE RASH AND SWELLING, 08/15/10) Iodine (Verified Allergy, Severe, SWELLING, RASH, 08/15/10) Penicillins (Unverified Allergy, Severe, RASH,SEVERE SWELLING, 08/15/10) Cephalexin (Verified Allergy, Intermediate, FACIAL SWELLING, UPSET STOMACH , 08/15/10) Omeprazole (Verified Allergy, Intermediate, RASH, 08/15/10) Prednisone (Verified Adverse Reaction, Intermediate, STEROID INDUCED DELERIUM, 08/15/10) Amitriptyline (Verified Adverse Reaction, Mild, MEMORY LOSS, 08/15/10) Clarithromycin (Verified Adverse Reaction, Mild, REACTS WITH GLUCOPHAGE, 08/15/10) Erythromycin Base (Verified Adverse Reaction, Mild, N/V, 08/15/10) Simvastatin (Verified Adverse Reaction, Mild, MUSCLE WEAKNESS, 08/15/10) Tramadol (Verified Adverse Reaction, Mild, NAUSEA, DIZZY, 08/15/10) Past History Past Medical History Metabolic: diabetes, hypercholesterolemia, hypertension Respiratory: pneumonia Female: , para Neurological: migraines Psychological: bipolar Surgical History General: appendix, exploratory laparotomy, other Reproductive/: hysterectomy, tubal ligation Vaccines Hx Influenza Vaccination: Yes (07/13) Hx Pneumococcal Vaccination: Yes (2003) Review of Systems Constitutional Constitutional: fatigue, fever Pulmonary Respiratory: cough, dyspnea, pneumonia hx, sputum All other Systems All Other Systems: Reviewed and Negative Physical Exam General General Nourishment: well nourished, well developed, appears stated age, no acute distress, adult, obese General Body Habitus: well groomed Vitals and Pain First Documented Vital Signs Date Time Temp Pulse Resp B/P Pulse Ox O2 Delivery O2 Flow Rate FiO2 01/19/17 21:17 98.0 86 18 150/83 98 Room Air Weight: Kilograms: Height (feet): Height (inches): Triage Pain Scale: RN VS reviewed by Provider: Yes Normal Exams: Head: Normocephalic w/o trauma Eyes: Pupils are PERRLA w/ EOMI, No scleral icterus, irritation ENMT: No facial trauma, nasal exudates, pharyngeal erythema Neck: Full range of motion, without adenopathy, JVD Lymphatic: No lymphadenopathy, or lymphedema noted Musculoskeletal: No tenderness, or deformity noted Integumentary: No rashes, hives, or bruising noted Neurologic: Patient is alert, and oriented Psychiatric: Patient exhibits, appropriate attention Respiratory (brief) Respiratory: FOUND: equal bilaterally, rales (Fine rales in RLL), symmetrical, NOT FOUND: clear all juarez, wheezes Cardiovascular (brief) Cardiac: FOUND: murmur (holosystolic), regular rate, regular rhythm, NOT FOUND : click, gallop, pedal edema, peripheral edema, rub Capillary Refill: <2 sec Pulses: all distal extremities, equal, strong Abdomen (brief) Abdominal Brief: FOUND: bowel normo active x4, soft, NOT FOUND: distended, hepatosplenomegaly, pulsatile mass, tender Differential Diagnoses Considering: Acute Bronchitis, Acute TX, Acute Respiratory Failure, CHF, COPD Exacerbation, Influenza, Myofascial Strain, Pneumonia, Pneumothorax, Pulmonary Edema, Pulmonary Embolus, RSV, Sinusitis, Viral Syndrome Progress Results/Orders Orders Procedure Category Date Status Time Bmp - Basic Metabolic LAB 01/19/17 Complete Panel 20:38 Probnp LAB 01/19/17 Complete 20:38 Cbc W/Auto LAB 01/19/17 Complete Diff-Reflex Manual 20:38 Blood Culture DIANA 01/19/17 In Process 20:38 D-Dimer LAB 01/19/17 Complete 20:38 INR LAB 01/19/17 Complete 20:38 Troponin I W LAB 01/19/17 Complete Hemolysis Index 20:38 Influenza A/B By Pcr LAB 01/19/17 Complete 20:38 Sputum Culture W/Gram DIANA 01/19/17 In Process Stain 20:38 EKG EKG 01/19/17 Taken 20:38 Chest, Pa & Lateral RAD 01/19/17 Taken 20:38 Iv Lock (Ed Only) EDM 01/19/17 Transmitted 20:38 Normal Saline (Normal PHA 01/19/17 Complete Saline Iv) 20:38 Albuterol/Ipratropium PHA 01/19/17 Complete (Duoneb) 20:45 Oxygen Administration EDM 01/19/17 Transmitted 20:38 Lactate - Lactic Acid LAB 01/19/17 Complete Procalcitonin LAB 01/19/17 Complete 20:38 Levofloxacin 750 Mg PHA 01/19/17 Complete Ivpb (Levaquin 750 M 20:45 UA, LAB 01/19/17 Complete Dip&Micro(Complete) & 21:19 Nitrofurantoin PHA 01/19/17 Complete (Perpack) (Macrobid 22:30 Lab Results Laboratory Tests Test 01/19/17 21:19 01/19/17 21:21 White Blood Count 8.1T/MM3 Red Blood Count 4.57M/MM3 Hemoglobin 12.7GM/DL Hematocrit 39.2% Mean Corpuscular Volume 85.8UM3 Mean Corpuscular Hemoglobin 27.8UUG Mean Corpuscular Hemoglobin Concent 32.4GM/DL RDW Standard Deviation 47.4FL Platelet Count 157T/MM3 Mean Platelet Volume 10.5UM3 Immature Granulocyte % (Auto) 0.4% Neutrophils (%) (Auto) 75.4% Lymphocytes (%) (Auto) 16.0% Monocytes (%) (Auto) 5.6% Eosinophils (%) (Auto) 2.5% Basophils (%) (Auto) 0.1% Absolute Immature Granulocyte (auto 0.03T/MM3 Absolute Neutrophils (auto) 6.1T/MM3 Absolute Lymphocytes (auto) 1.3T/MM3 Absolute Monocytes (auto) 0.5T/MM3 Absolute Eosinophils (auto) 0.2T/MM3 Absolute Basophils (auto) 0.0T/MM3 Prothromb Time International Ratio 1.02 D-Dimer 238NG/ML Urine Collection Type Cleancatch-midstream Urine Color Yellow Urine Turbidity Cloudy Urine pH 7.5 Urine Specific [place] 1.020 Urine Protein 1+ Urine Glucose (UA) Negative Urine Ketones Trace Urine Blood Negative Urine Nitrite Negative Urine Bilirubin Negative Urine Urobilinogen 1.0EU/DL Urine Leukocyte Esterase 2+ Urine RBC 1-3/HPF Urine WBC 50-200/HPF Urine WBC Clumps Few Urine Squamous Epithelial Cells 20-50 Urine Bacteria 1+ Urine Culture Indicated Cult not indicated Turbidity < 20 Sodium Level 145MEQ/L Potassium Level 3.4MEQ/L Chloride Level 102MEQ/L Carbon Dioxide Level 28MEQ/L Anion Gap 15MEQ/L Blood Urea Nitrogen 15.0MG/DL Creatinine 0.9MG/DL Glomerular Filtration Rate Calc 63 BUN/Creatinine Ratio 17RATIO Glucose Level 231MG/DL Calculated Osmolality 287MOSM/KG Calcium Level 9.1MG/DL Icterus Index < 2 Troponin I < 0.012ng/ml EH-Jid-H-Type Natriuretic Peptide 232PG/ML Plasma Lactate 1.6MMOL/L Procalcitonin 0.08NG/ML Chemistry Specimen Hemolysis < 15 Influenza Virus Type A (PCR) Negative Influenza Virus Type B (PCR) Negative Medications Current ED Medications Sodium Chloride (Normal Saline IV) 1,000 ml @ 125 mls/hr Q8H ONCE IV Last administered on 01/19/17 20:36; Start 01/19/17 at 20:38; Stop 01/19/17 at 23:12 ; Status DC Albuterol/ Ipratropium 3 ml 3 ml O ONCE AEROSOL Last administered on 21:35; Start 01/19/17 at 20:45; Stop 01/19/17 at 20:46; Status DC Levofloxacin/ Dextrose/Water (LEVAQUIN 750 mg IVPB/D5W) 150 ml @ 100 mls/hr O ONCE IV Last administered on 01/19/17 20:39; Start 01/19/17 at 20:45; Stop at 22:14; Status DC Nitrofurantoin Macrocrystals (Macrobid) 100 mg O ONCE PO ; Start 01/19/17 at 22 :00; Stop 01/19/17 at 22:01; Status Cancel Nitrofurantoin Macrocrystals (MACROBID (PrePack)) 1 pack O ONCE SENT HOME Last administered on 01/19/17 20:36; Start 01/19/17 at 22:30; Stop 01/19/17 at 22:31; Status DC Progress Progress Pt has no evidence of sepsis or pulm infx. UA is pos for a UTI. Will treat accordingly. Discussed dx, prognosis, and tx with pt who voiced understanding. EKG EKG : Rate: 60-100 Rhythm: sinus Industry: left QRS: normal Intervals: normal ST/T: normal Subtle Signs Low QRS Interpreted by: signing physician Xray Xray : Xray: CXR PA/Lat Interpretation: Normal, Interpreted by Me SHRAVAN WIGGINS DO Jan 19, 2017 20:44 SHRAVAN WIGGINS DO Jan 19, 2017 20:44
[2017-01-19] MEDS ORDERED: LEVOFLOXACIN 750 mg IVPB 750 MG in D5W 150 ML IV ONE (20:45)
[2017-01-19] MEDS ORDERED: ALBUTEROL/IPRATROPIUM INHAL. 2.5mg-0.5mg/3ml Neb. AEROSOL ONE (20:45)
[2017-01-19] MEDS ORDERED: METF500T4 PO (20:51)
[2017-01-19] MEDS ORDERED: ALLO100T PO (20:51)
[2017-01-19] MEDS ORDERED: METO-275 PO (20:51)
[2017-01-19] MEDS ORDERED: SITA100T12 PO (20:51)
[2017-01-19] MEDS ORDERED: PIOG30TA27 PO (20:52)
[2017-01-19 21:17] VITALS: Ht 162.6 cm; Wt 139.9 kg
[2017-01-19 21:37] LABS: BLOOD, URINE NEGATIVE (NEGATIVE); COLOR,URINE YELLOW (YELLOW); LEUKOCYTE ESTERASE ,URINE 2+ (NEGATIVE); NITRITE,URINE NEGATIVE (NEGATIVE)
[2017-01-19 21:39] LABS: BASOPHILS % (AUTO) 0.1 % (0-2); EOSINOPHILS # (AUTO) 0.2 T/MM3 (0-0.5); EOSINOPHILS % (AUTO) 2.5 % (0-4); HCT - HEMATOCRIT 39.2 % (36-46); HGB - HEMOGLOBIN 12.7 GM/DL (12-16); IMMATURE GRANULOCYTE # (AUTO) 0.03 T/MM3 (0.00-0.03); IMMATURE GRANULOCYTE % (AUTO) 0.4 % (0.0-0.5); LYMPHOCYTES # (AUTO) 1.3 T/MM3 (1-4.8); MEAN CORPUSCULAR HGB 27.8 UUG (26-34); MEAN CORPUSCULAR HGB CONC(MCHC 32.4 GM/DL (31-37); MEAN CORPUSCULAR VOLUME 85.8 UM3 (80-100); MEAN PLATELET VOLUME 10.5 UM3 (9.4-12.4); MONOCYTES # (AUTO) 0.5 T/MM3 (0-0.8); MONOCYTES % (AUTO) 5.6 % (0-9.0); NEUTROPHILS #(AUTO)-ABSOLUTE 6.1 T/MM3 (1.8-7.7); NEUTROPHILS % (AUTO) 75.4 % (33-66); RED BLOOD COUNT 4.57 M/MM3 (4.00-5.20); WBC - WHITE BLOOD COUNT 8.1 T/MM3 (4.5-11.0)
[2017-01-19 21:43] LABS: INR 1.02 (0.76-1.04); PROTHROMBIN TIME 11.1 SEC (9.31-12.49); SQUAMOUS EPITHELIAL CELL,UR 20-50
[2017-01-19 21:44] LABS: WBC,URINE 50-200 /HPF (0-5)
[2017-01-19 21:45] LABS: ANION GAP 15 MEQ/L (5-15); BUN/CREATININE RATIO 17 RATIO (6-26); CALCIUM 9.1 MG/DL (8.4-10.2); CHLORIDE 102 MEQ/L (98-107); CO2 - CARBON DIOXIDE 28 MEQ/L (22-30); CREATININE 0.9 MG/DL (0.7-1.2); GLOMERULAR FILTRATION RATE 63; GLUCOSE 231 MG/DL (65-110); POTASSIUM 3.4 MEQ/L (3.6-5); SODIUM 145 MEQ/L (134-144)
[2017-01-19 21:47] LABS: BACTERIA,URINE 1+ (NEGATIVE); WBC CLUMPS,URINE FEW
--- NOTE | 2017-01-19 21:49 | NUR ---
XRAY PT GONE FOR XRAY VIA WHEEL CHAIR.
[2017-01-19 21:56] LABS: PROBNP 232 PG/ML (0-175)
--- NOTE | 2017-01-19 21:59 | NUR ---
XRAY PT BACK FROM XRAY.
[2017-01-19] MEDS ORDERED: NITROFURANTOIN (Macrobid) 100mg CAP PO ONE (22:00)
[2017-01-19] MEDS ORDERED: NITR100C4 PO (22:14)
[2017-01-19] MEDS ORDERED: MACROBID 100mg #2 (PrePack) SENT HOME ONE (22:30)
--- NOTE | 2017-01-19 22:37 | NUR ---
po take home prepack pt given x1 macrobid and then instructed to take other tablet in pack in 12 hrs.
[2017-01-19 22:48] VITALS: BP 129/70; PULSE 71; RESP 20; TEMP 98.8; O2SAT 93
--- NOTE | 2017-01-19 22:48 | NUR ---
DISCHARGE PT GIVEN INSTRUCTIONS FOR UTI W/ RX X1 FOR MACROBID. PT VERBALIZED UNDERSTANDING AND SIGNED FORM, PT LEFT ER AMBULATORY W/ CANE ALERT, VS CHARTED AND NO ACUTE DISTRESS.
--- NOTE | 2017-01-20 08:12 | DI ---
INDICATION: ITS.REASON: Dyspnea PROCEDURE: CHEST 2-VIEWS UPRIGHT (PA \T\ LAT) Encounter: Initial COMPARISON: April 04, 2010 FINDINGS: The lungs are clear without evidence of focal abnormal airspace opacity. There is no pleural effusion or pneumothorax. The heart size, mediastinal contours and pulmonary vascularity are within normal limits. Degenerative change in the spine. IMPRESSION: No acute cardiopulmonary disease. .
== END 2017-01-19 22:48 | disposition home or self-care (01) ==
LOC: ED 20:10
DX: R06.00 Dyspnea, unspecified (principal); R05 Cough; R53.83 Other fatigue; R06.02 Shortness of breath; N30.00 Acute cystitis without hematuria
CPT/HCPCS: 36415; 71020; 80048; 81001; 83605; 83880; 84145; 84484; 85025; 85379; 85610; 87040; 87070; 87205; 87502; 93005; 94640; 96365; 96366; 99284; J1956; J7030; J7060